=== PATIENT | male | born 1960 | race Caucasian/White ===

== ENCOUNTER → 2020-10-01 13:32 | Outpatient (CLI) | payer MEDICAID, SELFPAY ==
[2020-10-01 13:10] VITALS: BMI 34.0
[2020-10-01 15:15] LABS: Absolute Neutrophil Count 4.2 X10^3/uL (2.0-7.7); Basophil# 0.03 X10^3/uL; Basophil% 0.4 % (0-1); Eosinophil# 0.22 X10^3/uL; Eosinophils% 2.8 % (0-5); Hematocrit 43.6 % (40-54); Hemoglobin 14.2 g/dL (13.0-16.5); Lymphocyte % 30.2 % (19-41); Mean Corp Hgb Conc 32.6 g/dL (32-36); Mean Corpuscular Hgb 28.2 pg (27.0-32.0); Mean Corpuscular Volume 86.7 fL (80-94); Mean Platelet Vol. 10.8 fl (6.2-12.0); Monocyte# 1.07 X10^3/uL; Monocyte% 13.5 % (0-10); NRBC Flagged by Analyzer 0 % (0-5); Neutrophil # 4.18 X10^3/uL (2.7-7.7); Neutrophil % 52.6 % (47-70); Platelet Count 258 K/mm3 (150-450); RBC Distribution Width CV 14.6 % (11.6-14.6); RBC Distribution Width SD 46.5 fl (35.1-43.9); Red Blood Count 5.03 M/mm3 (4.6-6.2); White Blood Count 7.9 K/mm3 (4.4-11.0)
[2020-10-01 15:35] LABS: Vitamin D,25 Hydroxy 23.8 ng/mL
[2020-10-01 15:43] LABS: ALB/GLOB Ratio 0.9 RATIO (0.9-2.4); AST(SGOT) 30 U/L (15-37); Alanine Aminotransfer ALT/SGPT 42 U/L (16-61); Albumin, Serum 3.8 g/dL (3.2-5.0); Alkaline Phosphatase 55 U/L (45-117); Anion Gap 7 (5-15); BUN 19 mg/dL (7-18); BUN/Creat Ratio 17.9 RATIO (10-20); Calcium,Total 9.4 mg/dL (8.5-10.1); Chloride 105 mmol/L (98-107); Cholesterol 209 mg/dL (200); Creatinine, Serum 1.06 mg/dL (0.70-1.30); EST Glomerular Filtration Rate 76 mL/min (>60); Est Glom Filt Rate - Afr Amer 92 mL/min (>60); Globulin 4.1 g/dL (2.2-4.2); Glucose 101 mg/dL (74-106); High Density Lipoprotein 38 mg/dL; Potassium 3.9 mmol/L (3.5-5.1); Protein, Total 7.9 g/dL (6.4-8.2); Sodium Level 137 mmol/L (136-145); Thyroid Stim Hormone (TSH) 1.21 uIU/mL (0.358-3.74); Triglycerides 171 mg/dL; Very Low Density Lipoprotein 34 mg/dL (5-40)
== END ==
PROVIDERS: PCP Nurse Practitioner Family; Referring Provider Nurse Practitioner Family; Visit Provider Nurse Practitioner Family
DX: Z00.00 Encounter for general adult medical examination without abnormal findings (principal); I10 Essential (primary) hypertension; E56.9 Vitamin deficiency, unspecified; Z12.5 Encounter for screening for malignant neoplasm of prostate
CPT/HCPCS: 36415; 80053; 80061; 82306; 84153; 84443; 85025; G0103

== ENCOUNTER → 2020-11-10 09:18 | Outpatient (CLI) | payer MEDICAID, SELFPAY ==
[2020-10-28 13:24] VITALS: BMI 34.0
[2020-11-10 12:17] LABS: Anion Gap 5 (5-15); BUN 9 mg/dL (7-18); BUN/Creat Ratio 11.1 RATIO (10-20); Calcium,Total 9.3 mg/dL (8.5-10.1); Chloride 109 mmol/L (98-107); Creatinine, Serum 0.81 mg/dL (0.70-1.30); EST Glomerular Filtration Rate 104 mL/min (>60); Est Glom Filt Rate - Afr Amer 125 mL/min (>60); Glucose 108 mg/dL (74-106); Potassium 4.7 mmol/L (3.5-5.1); Sodium Level 138 mmol/L (136-145)
== END ==
PROVIDERS: PCP Nurse Practitioner Family; Referring Provider Nurse Practitioner Family; Visit Provider Nurse Practitioner Family
DX: I10 Essential (primary) hypertension (principal)
CPT/HCPCS: 36415; 80048

== ENCOUNTER 2020-12-09 06:16 | Day surgery (SDC) | payer MEDICAID, SELFPAY ==
[2020-12-09] MEDS: Lactated Ringers 1,000 ML 100 ML IV (06:50)
[2020-12-09 07:04] VITALS: BP 135/88; PULSE 58; RESP 16; TEMP 36.3; O2SAT 95; BMI 32.1
--- NOTE | 2020-12-09 07:17 | HP.PCM_ITS ---
HPI - General HPI Narrative JENNIFER BUSTAMANTE, is a 60 M who presents for screening colonoscopy. Patient has never had a colonoscopy in the past. He does have a family history of colon cancer in his mother at age 57. Patient reports no abdominal pain or blood in his stool. [facility] Medical History (Updated 12/09/20 @ 07:[address] Yinka Morejon MD) Back pain Bone fracture Chronic low back pain Encounter for preventative adult health care examination Frequent headaches Hammer toe of right foot History of drug abuse History of echocardiogram Hypertension Marijuana use Meningitis spinal Smoker Vitamin deficiency Wears glasses Home Medications cholecalciferol (vitamin D3) 50 mcg (2,000 unit) capsule 50 mcg PO DAILY #90 cap 10/28/20 [Rx Last Taken Unknown] gabapentin 100 mg capsule 100 mg PO QHS #90 cap 10/28/20 [Rx Last Taken Unknown] amlodipine 10 mg PO QHS 12/05/20 [History Last Taken Unknown] lisinopril 10 mg PO QHS 12/05/20 [History Last Taken Unknown] Allergy/AdvReac Type Severity Reaction Status Date / Time No Known Allergies Allergy Unverified 12/09/20 06:47 Family History Mother Depression Colon cancer Grandfather Myocardial infarction Surgical History (Updated 12/05/20 @ 09:00 by Ana Mcclure) History of back surgery History of cardiac catheterization Social History Smoking Status: Current every day smoker tobacco type: cigarettes alcohol intake: never substance use type: former substance user and painkillers what type of physical activity do you participate in: other details: active lifestyle Past Medical/Surgical History Planned Operation Planned Operative Procedure/s: COLONOSCOPY Previous Hospitalizations/Surgeries HX Hospitalizations: No Any Problems With Anesthesia: No You/Your Family Experience Fever (Hyperthermia) With Anes: No Cholinesterase deficiency: No Cardiovascular Hx Hypertension: Yes Respiratory Hx Sleep Apnea: No Hx Respiratory Tract Infection/Cold (presently): No Do You Snore Loudly (louder than talking or can be heard): No Do You Often Feel Tired/ Fatigued/ Sleepy Dring Daytime?: No Has Anyone Observed You Stop Breathing During Sleep?: No Result (for STOP score): Negative Smoking Status: Current every day smoker Neurological Does patient have nerve stimulator: No Miscellaneous Recent Exposure to Contagious Disease: No Allergies No Known Allergies Allergy (Unverified 12/09/20 06:47) Discharge Is Pt Admitted From a Jail, or a Custodial: No Who Could Help: UNCLE After D/C, Where Do you Plan to Go: Return Home Vital Signs Vital Signs Vital Signs: 12/09/20 07:04 Temperature 97.3 F L Temperature Source Temporal Pulse Rate 58 L Respiratory Rate 16 Respiratory Pattern Normal Blood Pressure 135/88 H Blood Pressure Mean 103 Blood Pressure Source Monitor Blood Pressure Position Semi-Fowlers Blood Pressure Location Right Arm Pulse Ox 95 Oxygen Delivery Method Room Air Weight Weight: 229 lb 15.074 oz Body Mass Index (BMI) 32.1 Physical Exam Const alert and oriented x3 Resp normal respiratory effort and normal air movement Cardio regular rate and regular rhythm GI soft to palpation, non-tender and non-distended Assessment & Plan Assessment/Plan (1) Screen for colon cancer: PLAN: I explained endoscopy in detail to the patient. I explained the risks including but not limited to stroke or heart attack with anesthesia, perforation of the GI tract, bleeding, infection. I explained that any of these could necessitate further emergency surgery. The patient understands and all questions were answered sufficiently. The patient wishes to proceed with procedure. Patient does have family history of colon cancer in his mother at a young age I would recommend the patient has screening colonoscopies every 5 years at minimum. Yinka Morejon MD Pager: [facility] [address] [place] [address] [address] [place] [address] Office: Surgery Risks - Colonoscopy Risks Include but are not Limited To: Risks include but are not limited to: Bleeding, perforation requiring further surgery, inability to complete colonoscopy requiring barium enema.
--- NOTE | 2020-12-09 07:30 | COLBX_PTH ---
PATIENT: JENNIFER BUSTAMANTE LOC: EN U#:[id number] AGE/SX: 60/M ROOM: RE12/09/[address]: Dr. Yinka Morejon MD : 1960 BED: DIS: 12/09/2020 SPEC #: [id number] RECD: 12/09/20 13:52 STATUS: VISHAL LUPE #: [id number] MERCEDES: 12/09/20 07:[address]: Yinka Morejon DEPT: SURGICAL PATHOLOGY RECD BY: Jovanna Pelletier ENTERED: 12/09/20 14:02 SP TYPE: COLON BX OTHR DR: Erich Concepcion, FEED RESEARCH TECHNICIAN-C Tissues: A - Sigmoid colon biopsy B - Sigmoid colon biopsy C - Descending colon D - Rectum, NOS Procedures: Surgery Specimen Level IV HEADER OPERATION: Colonoscopy, open access (MAC) PRE-OP DIAGNOSIS: Screen for colon cancer TISSUE SUBMITTED: A. Sigmoid colon polyp, B. Sigmoid @20cm biopsy, C. Descending polyp, D. Rectal polyp MICROSCOPIC DIAGNOSIS A. Sigmoid colon polyp, biopsy: Hyperplastic polyp. B. Sigmoid colon polyp at 20cms, biopsy: Benign mucosal polyp with recent hemorrhage. C. Descending colon polyp, biopsy: Tubular adenoma. D. Rectal polyp, biopsy: Tubular adenoma. MICROSCOPIC DESCRIPTION Slides are reviewed. GROSS DESCRIPTION A. Received is one container labeled with the patient name and designated sigmoid colon polyp . The specimen consists of one irregular fragment of light aparciio soft tissue that measures 0.2 x 0.1x 0.1cm. The specimen is totally submitted in one cassette. B. Received is one container labeled with the patient name and designated sigmoid @20cm biopsy?. The specimen consists of two irregular fragments of light aparicio soft tissue that measure 0.5 x 0.5 x 0.1cm together. The specimen is totally submitted in one cassette C. Received is one container labeled with the patient name and designated . descending polyp . The specimen consists of one irregular fragment of light aparicio soft tissue that measures 0.3 x 0.2 x0.1 cm. The specimen is totally submitted in one cassette D. Received is one container labeled with the patient name and designated rectal polyp . The specimen consists of one irregular fragment of light aparicio soft tissue that measures 0.7 x 0.6 x 0.5cm. The specimen is bisected and totally submitted in one cassette. /AM;am 12/09/20. TC:5 [facility]:[id number]
[2020-12-09 07:48] VITALS: BP 135/88; BP 95/71; PULSE 76; RESP 18; TEMP 36.8; O2SAT 96
--- NOTE | 2020-12-09 07:53 | OP.COLON_ITS ---
Patient Name: Brian Simms Procedure Date: 12/09/2020 7:03 AM Date of : 1960 Age: 60 Procedure: Colonoscopy Indications: Screening for colorectal malignant neoplasm Providers: Yinka Morejon MD Medicines: Monitored Anesthesia Care Patient Profile: This is a 60 year old male. Refer to note in patient chart for documentation of history and physical. Last Colonoscopy: none. The patient's first colonoscopy is today. Complications: No immediate complications. Estimated blood loss: Minimal. Procedure: Pre-Anesthesia Assessment: - Prior to the procedure, a History and Physical was performed, and patient medications and allergies were reviewed. The patient's tolerance of previous anesthesia was also reviewed. The risks and benefits of the procedure and the sedation options and risks were discussed with the patient. All questions were answered, and informed consent was obtained. Prior Anticoagulants: The patient has taken no previous anticoagulant or antiplatelet agents. After reviewing the risks and benefits, the patient was deemed in satisfactory condition to undergo the procedure. After I obtained informed consent, the scope was passed under direct vision. Throughout the procedure, the patient's blood pressure, pulse, and oxygen saturations were monitored continuously. The colonoscope was introduced through the anus and advanced to the cecum, identified by appendiceal orifice and ileocecal valve. The colonoscopy was performed without difficulty. The patient tolerated the procedure well. The quality of the bowel preparation was good. Scope In: 7:27:24 AM Scope Withdrawal Time 0 hours 7 minutes 18 seconds Scope Out: 7:45:33 AM Total Procedure Duration Time 0 hours 18 minutes 9 seconds Findings: Three polyps were found in the rectum, sigmoid colon and descending colon. These polyps were removed with a hot snare. Resection and retrieval were complete. A single (solitary) ulcer was found in the sigmoid colon. No bleeding was present. No stigmata of recent bleeding were seen. Biopsies were taken with a cold forceps for histology. Multiple small and large-mouthed diverticula were found in the sigmoid colon. Impression: - Three polyps in the rectum, in the sigmoid colon and in the descending colon, removed with a hot snare. Resected and retrieved. Recommendation: - Discharge patient to home. - Resume previous diet. - Continue present medications. - Await pathology results. - Repeat colonoscopy in 5 years for surveillance based on pathology results. Procedure Code(s): --- Professional --- 06819, Colonoscopy, flexible; with removal of tumor(s), polyp(s), or other lesion(s) by snare technique 70921, 61, Colonoscopy, flexible; with biopsy, single or multiple Diagnosis Code(s): --- Professional --- Z12.11, Encounter for screening for malignant neoplasm of colon K62.1, Rectal polyp D12.5, Benign neoplasm of sigmoid colon D12.4, Benign neoplasm of descending colon CPT copyright 2017 [employer]. All rights reserved. The codes documented in this report are preliminary and upon pest control service representative review may be revised to meet current compliance requirements. Yinka Morejon MD 12/09/2020 7:52:00 AM This report has been signed electronically. Number of Addenda: 0 Note Initiated On: 12/09/2020 7:03 AM
--- NOTE | 2020-12-09 07:53 | OP.CCLET_ITS ---
12/09/2020 Erich Concepcion NP [address] [place] [address] Re : Colonoscopy procedure for Brian Simms Dear Mr. Concepcion This procedure was performed on Wednesday, December 09, 2020. My impressions and recommendations are as follows: Impressions : - Three polyps in the rectum, in the sigmoid colon and in the descending colon, removed with a hot snare. Resected and retrieved. Recommendations : - Discharge patient to home. - Resume previous diet. - Continue present medications. - Await pathology results. - Repeat colonoscopy in 5 years for surveillance based on pathology results. My findings are described in the full procedure note, which is enclosed. If I can be of further assistance, please feel free to contact me at Doctor phone number(s): , Work: . Sincerely, Yinka Morejon MD 12/09/2020 7:52:00 AM This report has been signed electronically.
[2020-12-09 07:55] VITALS: BP 114/79; BP 135/88; PULSE 68; RESP 16; O2SAT 97
[2020-12-09 08:00] VITALS: BP 130/88; BP 135/88; PULSE 62; RESP 16; O2SAT 99
[2020-12-09 08:05] VITALS: BP 128/74; BP 135/88; PULSE 59; RESP 16; TEMP 36.1; O2SAT 99
[2020-12-09 08:17] VITALS: BP 135/88
== END 2020-12-09 08:29 | disposition home or self-care (01) ==
LOC: EN 06:19 → AC 06:19
PROVIDERS: PCP Nurse Practitioner Family; Referring Provider Nurse Practitioner Family; Visit Provider Surgery
PROC: 0DJD8ZZ Inspection of Lower Intestinal Tract, Via Natural or Artificial Opening Endoscopic (ICD-10-PCS; CPT 45378; principal; 2020-12-09 07:25)
DX: Z12.11 Encounter for screening for malignant neoplasm of colon (principal); D12.4 Benign neoplasm of descending colon; D12.8 Benign neoplasm of rectum; K63.3 Ulcer of intestine; K57.30 Diverticulosis of large intestine without perforation or abscess without bleeding; I10 Essential (primary) hypertension; F17.210 Nicotine dependence, cigarettes, uncomplicated; Z79.899 Other long term (current) drug therapy
CPT/HCPCS: 45380; 88305; J7120; J2405

== ENCOUNTER 2021-07-17 16:04 | Inpatient (IN) | payer MEDICAID, SELFPAY ==
[2021-07-17 16:04] VITALS: BP 153/109; PULSE 82; RESP 16; TEMP 36.6; O2SAT 97; BMI 30.8
--- NOTE | 2021-07-17 16:28 | CT_ITS ---
STUDY: CT CERVICAL SPINE WITHOUT CONTRAST REASON FOR EXAM: Male, 61 years old. head injury, neck pain RADIATION DOSAGE (If Supplied By Facility): CTDIvol = ( 23.04 ) mGy, DLP = ( 519.27 ) mGycm TECHNIQUE: High resolution transaxial imaging was performed without contrast material. Sagittal and coronal images were reconstructed. Individualized dose optimization techniques were used for this CT. COMPARISON: None FINDINGS: Normal craniovertebral junction. There are degenerative changes of the anterior atlantoaxial articulation. Normal odontoid process. Normal cervical lordosis. Normal vertebral bodies and posterior osseous elements. C2-3: Normal endplates. Normal disc height and morphology. Normal central canal and intervertebral neuroforamina. C3-4: Moderate left facet hypertrophy with ankylosis of facet joint produces mild left neural foraminal stenosis. No central spinal stenosis. C4-5: Moderate bilateral facet hypertrophy and right uncovertebral hypertrophy produces moderate neural foraminal stenosis. No central spinal stenosis. C5-6: Moderate left facet hypertrophy produces mild left neural foraminal stenosis. No central spinal stenosis. C6-7: Mild bilateral facet hypertrophy with mild bilateral neural foraminal stenosis. No central spinal stenosis. C7-T1: Normal endplates. Normal disc height and morphology. Normal central canal and intervertebral neuroforamina. Normal visualized soft tissue structures. CT/Spine Cervical without Contras IMPRESSION: No acute fracture or subluxation. Electronically Signed: Dominick Sanchez MD at 18:00 EDT ,
--- NOTE | 2021-07-17 16:28 | CT_ITS ---
STUDY: CT CHEST, ABDOMEN T PELVIS WITH CONTRAST REASON FOR EXAM: Male, 61 years old. fall, trauma RADIATION DOSAGE (If Supplied By Facility): CTDIvol = ( 22.33 ) mGy, DLP = ( 5177.75 ) mGycm TECHNIQUE: Transaxial imaging was performed following intravenous administration of IV 100mL Isovue-300. Individualized dose optimization techniques were used for this CT. COMPARISON: No relevant priors. FINDINGS: CHEST 8 mm bilobed noncalcified nodule in the left lower lung zone image 54. Correlation with PET CT scan is recommended. If PET negative, follow-up CT chest is recommended in 6 months to document stability. There is no demonstrated pleural abnormality. Normal heart and pericardium. Normal mediastinum. Normal hilar regions. Normal unenhanced pulmonary arteries. Normal aorta arch and descending thoracic aorta. Acute nondisplaced fracture of the medial aspect of the left 11th and 12th ribs. Acute nondisplaced fracture of the lateral left eighth rib. There is no demonstrated abnormality of the visualized upper abdomen. ABDOMEN The visualized lung bases are unremarkable. The visualized portions of the heart are within normal limits. Normal liver. Normal gallbladder and extrahepatic biliary system. Normal spleen. Normal pancreas. Normal bilateral adrenal glands. Normal right kidney. 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 Normal left kidney. Normal visualized stomach. Normal small intestine. There are multiple colonic diverticula consistent with diverticulosis. The appendix is visualized and appears normal. Normal abdominal aorta. Normal inferior vena cava. Normal retroperitoneum. Normal abdominal wall. Acute fractures of the left transverse process of L1, L2, L3, and L4. PELVIS Normal urinary bladder. Normal visualized small intestine. Normal visualized colon. There is no pelvic fluid. There is no pelvic lymphadenopathy or mass lesion. Normal visualized pelvic arteries. Normal abdominal wall. Normal osseous structures. CT/CT Chest, Abd, Pel w/Contrast IMPRESSION: 1. No acute traumatic aortic injury or solid organ injury. 2. Multiple left rib fractures but no pneumothorax or hemothorax. 3. Fractures of the left transverse process of L1, L2, L3, and L4. 4. Sigmoid diverticulosis without diverticulitis. 5. 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 Electronically Signed: Dominick Sanchez MD at 18:29 EDT ,
--- NOTE | 2021-07-17 16:28 | CT_ITS ---
STUDY: CT BRAIN WITHOUT CONTRAST REASON FOR EXAM: Male, 61 years old. head injury RADIATION DOSAGE (If Supplied By Facility): CTDIvol = ( 44.99 ) mGy, DLP = ( 866.41 ) mGycm TECHNIQUE: Transaxial CT imaging of the brain was performed without administration of intravenous contrast material. Individualized dose optimization techniques were used for this CT. COMPARISON: 12/29/2012 FINDINGS: Normal soft tissue structures. Normal calvarium. Normal size ventricles and extra-axial spaces for the patient''s age. Normal white matter tracts of the cerebral hemispheres. Normal basal ganglia and thalami. Normal brainstem. Normal cerebellum. There is no intracranial hemorrhage. There are no findings of an acute ischemic infarction. Normal visualized paranasal sinuses. CT/Brain/Head without Contrast IMPRESSION: Normal unenhanced CT scan of the brain. Electronically Signed: Dominick Sanchez MD at 18:19 EDT ,
--- NOTE | 2021-07-17 16:28 | CT_ITS ---
STUDY: CT LUMBAR SPINE WITHOUT CONTRAST REASON FOR EXAM: Male, 61 years old. fall, trauma RADIATION DOSAGE (If Supplied By Facility): CTDIvol = ( 43.02 ) mGy, DLP = ( 1400.74 ) mGycm TECHNIQUE: The patient was scanned in a multi detector CT scanner. High resolution transaxial imaging was performed. Images were obtained from T12 to S1. Sagittal and coronal images were reconstructed. Individualized dose optimization techniques were used for this CT. COMPARISON: None FINDINGS: Normal lumbar lordosis. There is no substantial scoliosis. Acute fractures of left transverse process of L1, L2, L3, and L4. L1-2: Normal endplates. Normal disc height and morphology. Normal bilateral facet joints. Normal central canal and bilateral lateral recesses. Normal bilateral intervertebral neural foramina. L2-3: Normal endplates. Normal disc height and morphology. Normal bilateral facet joints. Normal central canal and bilateral lateral recesses. Normal bilateral intervertebral neural foramina. L3-4: Mild bilateral facet hypertrophy and ligament flavum hypertrophy. Mild broad disc protrusion produces mild spinal stenosis and mild bilateral neural foraminal stenosis. L4-5: Moderate bilateral facet hypertrophy and ligamentum flavum hypertrophy. Mild broad disc protrusion produces mild spinal stenosis and mild bilateral neural foraminal stenosis. L5-S1: Severe bilateral facet hypertrophy and moderate ligament flavum hypertrophy. 2 mm retrolisthesis of L5 on S1 with a mild broad disc protrusion with vacuum disc formation produces moderate spinal stenosis and moderate bilateral neural foraminal stenosis. Normal visualized paraspinous soft tissue structures. CT/Spine Lumbar without Contrast IMPRESSION: Acute fractures of the left transverse process of L1, L2, L3, and L4. Electronically Signed: Dominick Sanchez MD at 18:17 EDT ,
--- NOTE | 2021-07-17 16:28 | CT_ITS ---
STUDY: CT THORACIC SPINE WITHOUT CONTRAST REASON FOR EXAM: Male, 61 years old. fall injury RADIATION DOSAGE (If Supplied By Facility): CTDIvol = ( 28.86 ) mGy, DLP = ( 1177.48 ) mGycm TECHNIQUE: The patient was scanned in a multi detector CT scanner. High resolution imaging was performed. Images were obtained from C7 to L1. Sagittal and coronal images were reconstructed. Individualized dose optimization techniques were used for this CT. COMPARISON: None. FINDINGS: Normal visualized cervical spine. Normal kyphosis of the thoracic spine. There is no substantial scoliosis. Normal thoracic vertebrae and endplates. Normal disc spaces heights. The soft tissue structures are unremarkable. CT/Spine Thoracic without Contras IMPRESSION: Normal unenhanced CT examination of the thoracic spine. Electronically Signed: Dominick Sanchez MD at 18:04 EDT ,
--- NOTE | 2021-07-17 16:29 | EKG12_ITS ---
Test Reason : Blood Pressure : / mmHG Vent. Rate : 075 BPM Atrial Rate : 075 BPM P-R Int : 202 ms QRS Dur : 086 ms QT Int : 350 ms P-R-T Axes : 053 018 024 degrees QTc Int : 390 ms Normal sinus rhythm Normal ECG Confirmed by BENNIE FINLEY, GENESIS ([id number]), advertising editor MILLER NAVA ([id number]) on 07/20/2021 1:57:31 PM Referred By: ANDREAS Confirmed By:NAIDA AVERY MD
--- NOTE | 2021-07-17 16:33 | EDS_ITS ---
HPI HPI - Fall History of Present Illness Chief Complaint: Fall Informant: patient Narrative Narrative: Patient presents by private vehicle after a fall off a 12 foot ladder. He works as a contractor. 2 hours ago, and off a ladder when the wind blew the ladder falling directly on his back hitting his head. He did not lose consciousness. He is not taking anticoagulation medicines. He is able to get himself here. Has significant upper back left-sided chest pain. He states he sustained a transverse fracture cervical spine 3 to 5 years ago with no surgical intervention. He takes blood pressure medications. Denies nausea or vomiting. Denies any extremity pains. There is just mild paresthesia ulnar aspect of the right hand. There is no weakness. Prior similar symptoms: No PFSH PFSH Medical History Back pain Bone fracture Chronic low back pain Chronic thoracic back pain Encounter for preventative adult health care examination Frequent headaches Hammer toe of right foot History of drug abuse History of echocardiogram Hypertension Marijuana use Meningitis spinal Right knee pain Smoker Tobacco abuse Vitamin deficiency Wears glasses Home Medications amlodipine 10 mg PO QHS 07/17/21 [History Last Taken 07/16/21] cholecalciferol (vitamin D3) 50 mcg PO DAILY 07/17/21 [History Last Taken 07/16/21] gabapentin 100 mg PO BID 07/17/21 [History Last Taken 07/16/21] lisinopril 20 mg PO QHS 07/17/21 [History Last Taken 07/16/21] Allergy/AdvReac Type Severity Reaction Status Date / Time No Known Allergies Allergy Verified 07/17/21 16:06 Family History Mother Depression Colon cancer Grandfather Myocardial infarction Surgical History History of back surgery History of cardiac catheterization Social History Smoking Status: Current every day smoker tobacco type: cigarettes alcohol intake: never substance use type: former substance user and painkillers what type of physical activity do you participate in: other details: active lifestyle ROS ROS ED Constitutional Constitutional ED: Denies chills, fever(s) or sweats Eyes Eyes: Denies change in vision ENT ENT ED: Denies dysphagia or sore throat Cardiovascular Cardiovascular: Reports chest pain; Denies leg edema, palpitations or racing heartbeat Respiratory/Chest Respiratory/Chest: Denies cough, dyspnea or dyspnea on exertion Gastrointestinal Gastrointestinal: Denies abdominal pain, diarrhea, nausea or vomiting Genitourinary Genitourinary ED: Denies dysuria, hematuria or urinary frequency Musculoskeletal Musculoskeletal: Reports back pain; Denies extremity pain Integumentary Denies rash or wounds Neurologic Neurologic: Denies headache(s), paresthesias or weakness EXAM Physical Exam Const Vital Signs: 07/17/21 16:04 07/17/21 17:34 Temperature 97.8 F Temperature Source Temporal Pulse Rate 82 Respiratory Rate 16 18 Blood Pressure 153/109 H Blood Pressure Mean 123 Pulse Ox 97 98 Oxygen Delivery Method Room Air Room Air Positive well nourished and well developed Constitutional Narrative: Uncomfortable laying on his right side. GCS 15. General Appearance ED: well developed HEENT Reports normocephalic and moist mucous membranes HEENT Narrative: No hemotympanum. No scalp hematomas or lacerations. normocephalic and atraumatic Eyes PERRL, EOMs intact bilaterally and conjunctivae normal General Eye ED: Yes normal appearance of both eyes Neck no lymphadenopathy and supple Neck Narrative: No midline tenderness or step-offs, mild paracervical tenderness. General: tenderness Chest Wall Chest Narrative: Tender palpation left side chest wall no crepitus. No ecchymosis. Chest: Negative for tenderness Resp normal respiratory effort and normal air movement Resp Narrative: Symmetric breath sounds bilaterally. Effort and Inspection: symmetric chest movement; Negative for respiratory distress Cardio regular rate, regular rhythm and no murmurs Peripheral Pulses: pulses 2+ throughout GI normal to inspection, nondistended, normoactive bowel sounds and non-tender Palpation: Negative for guarding or rebound tenderness present Back/Spine no thoracic nor lumbar tenderness Back/Spine Narrative: Significant tenderness mid Thoracics down his lumbar spine however primary to give tenderness with that mid thoracic region. No ecchymosis of the back. Extremity normal to inspection Extremity Narrative: Full range of motion x4 extremities negative logroll bilaterally. General Extremety ED: Negative for edema or tenderness General Extremity: Negative for edema Neuro oriented x3, CN's II-XII intact bilaterally and no sensory deficits noted Sensorium / Orientation: awake and alert Skin no rashes or lesions noted and no wounds Skin Narrative: No abrasions or lacerations. MDM MDM MDM Narrative Medical decision making narrative: Patient fall off a 12 foot ladder significant tenderness mid thoracic region however pain down his lumbar spine. Tenderness left chest wall. With no crepitus. Trauma scans head neck chest abdomen pelvis with thoracic and lumbar scans ordered. EKG sinus rhythm. Fentanyl for pain control. Trauma scans head neck thoracic spine lumbar spine chest abdomen pelvis are obtained. Results positive for nondisplaced rib fractures on the left of 8, 11 and 12. No pneumohemothorax. There is transverse fractures of L1 and L4 on the left. Reevaluation continued pain additional fentanyl was ordered. There is no intrathoracic or intra-abdominal injuries. His white cells with 19.2. Likely reactive. No lung infections he denies any urine symptoms. I did discuss with neurosurgeon Dr. Shelley, states nonoperative treatment with pain control. He states a brace may or may not benefit. Activities as tolerated. However due to pain control he will be admitted to to the hospital. He can follow-up with neurosurgery as an outpatient. I spoke with hospitalist Dr. Brantley for admission. Lab Data Labs: Laboratory Results - last 24 hr 07/17/21 07/17/21 07/17/21 16:50 16:50 16:50 WBC 19.2 H RBC 4.72 Hgb 13.8 Hct 41.3 MCV 87.5 MCH 29.2 MCHC 33.4 RDW Std Deviation 45.2 H RDW Coeff of Ervin 14.2 Plt Count 245 MPV 10.5 Immature Gran % (Auto) 1.000 H Neut % (Auto) 79.2 H Lymph % (Auto) 8.4 L [place] % (Auto) 10.9 H Eos % (Auto) 0.3 Baso % (Auto) 0.2 Absolute Neuts (auto) 15.2 H Absolute Lymphs (auto) 1.61 Nucleated RBC % 0 Differential Comment Diff Path Review May foll Platelet Estimate ADEQUATE RBC Morphology NORM C+C PT 13.5 INR 1.1 APTT 23.9 L Sodium 136 Potassium 4.7 Chloride 108 H Carbon Dioxide 26.0 Anion Gap 2 L BUN 14 Creatinine 1.02 Estim Creat Clear Calc 80.51 Est GFR (MDRD) Af Amer 96 Est GFR (MDRD) Non-Af 79 BUN/Creatinine Ratio 13.7 Glucose 154 H Calcium 9.1 Radiography Diagnostic Testing: Clinical Impression(s) from Imaging Studies Brain CT 07/17/21 16:28 IMPRESSION: Normal unenhanced CT scan of the brain. Electronically Signed: Dominick Sanchez MD at 18:19 EDT Reading Location ID and State: [place] / [employer] , Service support , Cervical Spine CT 07/17/21 16:28 IMPRESSION: No acute fracture or subluxation. Electronically Signed: Dominick Sanchez MD at 18:00 EDT Reading Location ID and State: [place] / [employer] , Service support , Chest/Abdomen/Pelvis CT 07/17/21 16:28 IMPRESSION: 1. No acute traumatic aortic injury or solid organ injury. 2. Multiple left rib fractures but no pneumothorax or hemothorax. 3. Fractures of the left transverse process of L1, L2, L3, and L4. 4. Sigmoid diverticulosis without diverticulitis. 5. 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 Electronically Signed: Dominick Sanchez MD at 18:29 EDT Reading Location ID and State: [place] / [employer] , Service support , Lumbar Spine CT 07/17/21 16:28 IMPRESSION: Acute fractures of the left transverse process of L1, L2, L3, and L4. Electronically Signed: Dominick Sanchez MD at 18:17 EDT Reading Location ID and State: [place] [facility] / [employer] , Service support , Thoracic Spine CT 07/17/21 16:28 IMPRESSION: Normal unenhanced CT examination of the thoracic spine. Electronically Signed: Dominick Sanchez MD at 18:04 EDT Reading Location ID and State: [place] / [employer] , Service support , EKG Initial EKG: Attestation: I personally reviewed and interpreted this EKG as follows: Comments: Sinus rate of 75, no ST changes, T wave inversion in leads III, nonspecific. Critical Care Time Critical Care Time: Yes Critical care time (excluding procedures): 30-74 minutes, Discussing w/Patient &/or Family/[employer], Discussing w/Consultants, Arranging Admission or Transfer, Performing Direct Patient Care at Bedside and - (40 minutes) Discharge Plan Dx/Rx/DC Orders Clinical Impression: Fall from ladder, Multiple rib fractures, Multiple transverse process fractures, Trauma Disposition Disposition: Acute Care Hospital [facility] Discharge Date/Time: 07/17/21 20:25
[2021-07-17] MEDS: fentaNYL 100 MCG/2 ML Ampul IV (16:48)
[2021-07-17] MEDS: Ondansetron 4 MG/2 ML Vial IV (16:48)
[2021-07-17 17:07] LABS: Absolute Lymphocyte Count 1.61 X10^3/uL (0.83-4.51); Absolute Neutrophil Count 15.2 X10^3/uL (2.0-7.7); Basophil# 0.04 X10^3/uL; Basophil% 0.2 % (0-1); Eosinophil# 0.06 X10^3/uL; Eosinophils% 0.3 % (0-5); Hematocrit 41.3 % (40-54); Hemoglobin 13.8 g/dL (13.0-16.5); Lymphocyte # 1.61 X10^3/ul (0.83-4.51); Lymphocyte % 8.4 % (19-41); Mean Corp Hgb Conc 33.4 g/dL (32-36); Mean Corpuscular Hgb 29.2 pg (27.0-32.0); Mean Corpuscular Volume 87.5 fL (80-94); Mean Platelet Vol. 10.5 fl (6.2-12.0); Monocyte# 2.09 X10^3/uL; Monocyte% 10.9 % (0-10); NRBC Flagged by Analyzer 0 % (0-5); Neutrophil % 79.2 % (47-70); POSITIVE DIFFERENTIAL YES; Platelet Count 245 K/mm3 (150-450); RBC Distribution Width CV 14.2 % (11.6-14.6); RBC Distribution Width SD 45.2 fl (35.1-43.9); Red Blood Count 4.72 M/mm3 (4.6-6.2); White Blood Count 19.2 K/mm3 (4.4-11.0)
[2021-07-17 17:17] LABS: International Normalized Ratio 1.1; Prothrombin Time (Protime)PT. 13.5 SECONDS (11.7-14.9)
[2021-07-17 17:18] LABS: Partial Thromboplast Time 23.9 Seconds (24.1-36.2)
[2021-07-17 17:22] LABS: Differential Indicated SCAN CRITERIA MET
[2021-07-17 17:25] LABS: Anion Gap 2 (5-15); BUN 14 mg/dL (7-18); BUN/Creat Ratio 13.7 RATIO (10-20); Calcium,Total 9.1 mg/dL (8.5-10.1); Chloride 108 mmol/L (98-107); Creatinine, Serum 1.02 mg/dL (0.70-1.30); EST Glomerular Filtration Rate 79 mL/min (>60); Est Glom Filt Rate - Afr Amer 96 mL/min (>60); Estimated Creatinine Clearance 80.51 ml/min; Glucose 154 mg/dL (74-106); Potassium 4.7 mmol/L (3.5-5.1); Sodium Level 136 mmol/L (136-145)
[2021-07-17 17:34] VITALS: RESP 18; O2SAT 98
[2021-07-17 17:49] LABS: Platelet Estimate ADEQUATE (ADEQ); Red Cell Morphology NORM C+C NORMAL (NORM C&C)
--- NOTE | 2021-07-17 19:10 | PCM.HP.STD ---
HPI - General General Date of Admission: 07/17/21 HPI Narrative JENNIFER BUSTAMANTE, is a 61 M who presents to the hospital after falling off of his roof. He was doing some roof repair and he went to step onto the ladder which gave out from under him when he fell to the ground. He did not lose consciousness but he started complaining of back pain and chest pain. In the ER he was found to have fractures in his eighth, 11th, 12th left ribs as well as transverse process fractures of L1, L2, L3, L4 on the left. Was also noted that he had an 8 mm bilobed noncalcified nodule in his left lower lung and PET scan was recommended. He denies any numbness or tingling in his lower extremities, he does have pain on his left side with deep breathing and has midline spine pain but no loss of bowel or bladder function. [facility] Medical History Back pain Bone fracture Chronic low back pain Chronic thoracic back pain Encounter for preventative adult health care examination Frequent headaches Hammer toe of right foot History of drug abuse History of echocardiogram Hypertension Marijuana use Meningitis spinal Right knee pain Smoker Tobacco abuse Vitamin deficiency Wears glasses Home Medications amlodipine 10 mg PO QHS 07/17/21 [History Last Taken 07/16/21] cholecalciferol (vitamin D3) 50 mcg PO DAILY 07/17/21 [History Last Taken 07/16/21] gabapentin 100 mg PO BID 07/17/21 [History Last Taken 07/16/21] lisinopril 20 mg PO QHS 07/17/21 [History Last Taken 07/16/21] Allergy/AdvReac Type Severity Reaction Status Date / Time No Known Allergies Allergy Verified 07/17/21 16:06 Family History Mother Depression Colon cancer Grandfather Myocardial infarction Surgical History History of back surgery History of cardiac catheterization Social History Smoking Status: Current every day smoker tobacco type: cigarettes alcohol intake: never substance use type: former substance user and painkillers what type of physical activity do you participate in: other details: active lifestyle ROS Constitutional Constitutional: Denies chills, fatigue, fever(s) or malaise Eyes Eyes: Denies blurry vision ENT HEENT: Denies headache(s) or nasal discharge Cardiovascular Cardiovascular: Reports chest pain; Denies dyspnea on exertion or syncope Respiratory/Chest Respiratory/Chest: Denies cough, shortness of breath at rest or shortness of breath with exertion Gastrointestinal Gastrointestinal: Denies constipation, diarrhea, nausea or vomiting Genitourinary Genitourinary: Denies dysuria Musculoskeletal Musculoskeletal: Reports back pain Neurologic Neurologic: Denies focal weakness, numbness or tremor(s) Psychiatric Psychiatric: Denies anxiety or depression Vital Signs Vital Signs Vital Signs: 07/17/21 16:04 07/17/21 17:34 Temperature 97.8 F Temperature Source Temporal Pulse Rate 82 Respiratory Rate 16 18 Blood Pressure 153/109 H Blood Pressure Mean 123 Pulse Ox 97 98 Oxygen Delivery Method Room Air Room Air Weight Weight: 215 lb Body Mass Index (BMI) 30.8 Physical Exam Const alert, oriented x3 and no apparent distress General Appearance: cooperative HEENT normocephalic and moist oral mucous membranes Eyes PERRL, EOMs intact bilaterally and conjunctivae normal Neck supple and no JVD Resp normal respiratory effort, no retractions, no use of accessory muscles and clear to auscultation bilaterally Auscultation: rhonchi; Negative for crackles, rales or wheezes Cardio regular rate, regular rhythm, S1 normal heart sound, S2 normal heart sound and no murmurs GI soft to palpation, non-tender and non-distended; Negative for hepatosplenomegaly Back/Spine Thoracic Spine / Upper Back: normal to inspection; Negative for thoracic spinal tenderness Lumbar Spine / Lower Back: normal to inspection and lumbar spinal tenderness L1, L2, L3 and L4 Extremity no clubbing, cyanosis or edema Skin no rashes or lesions noted Neuro moves all extremities, no focal motor deficits, no sensory deficits noted and deep tendon reflexes 2+ bilaterally Psych affect normal Appearance: appropriate Results Lab / Micro Data Result Diagrams: 07/17/21 16:50 07/17/21 16:50 Labs: Laboratory Results - last 24 hr 07/17/21 16:50: WBC 19.2 H, RBC 4.72, Hgb 13.8, Hct 41.3, MCV 87.5, MCH 29.2, MCHC 33.4, RDW Std Deviation 45.2 H, RDW Coeff of Ervin 14.2, Plt Count 245, MPV 10.5, Immature Gran % (Auto) 1.000 H, Neut % (Auto) 79.2 H, Lymph % (Auto) 8.4 L, [place] % (Auto) 10.9 H, Eos % (Auto) 0.3, Baso % (Auto) 0.2, Absolute Neuts (auto) 15.2 H, Absolute Lymphs (auto) 1.61, Nucleated RBC % 0, Differential Comment , Diff Path Review August, Platelet Estimate ADEQUATE, RBC Morphology NORM C+C 07/17/21 16:50: PT 13.5, INR 1.1, APTT 23.9 L 07/17/21 16:50: Sodium 136, Potassium 4.7, Chloride 108 H, Carbon Dioxide 26.0, Anion Gap 2 L, BUN 14, Creatinine 1.02, Estim Creat Clear Calc 80.51, Est GFR (MDRD) Af Amer 96, Est GFR (MDRD) Non-Af 79, BUN/Creatinine Ratio 13.7, Glucose 154 H, Calcium 9.1 Micro: Microbiology 07/17/21 16:50 Nasal Secretion SARS-CoV-2 Antigen (Rapid) - Final Radiology Impression Brain CT 07/17/21 16:28 IMPRESSION: Normal unenhanced CT scan of the brain. Electronically Signed: Dominick Sanchez MD at 18:19 EDT Reading Location ID and State: [id number] / [employer] , Service support , Cervical Spine CT 07/17/21 16:28 IMPRESSION: No acute fracture or subluxation. Electronically Signed: Dominick Sanchez MD at 18:00 EDT , Chest/Abdomen/Pelvis CT 07/17/21 16:28 IMPRESSION: 1. No acute traumatic aortic injury or solid organ injury. 2. Multiple left rib fractures but no pneumothorax or hemothorax. 3. Fractures of the left transverse process of L1, L2, L3, and L4. 4. Sigmoid diverticulosis without diverticulitis. 5. 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 Electronically Signed: Dominick Sanchez MD at 18:29 EDT Reading Location ID and State: [id number] / [employer] , Service support , Lumbar Spine CT 07/17/21 16:28 IMPRESSION: Acute fractures of the left transverse process of L1, L2, L3, and L4. Electronically Signed: Dominick Sanchez MD at 18:17 EDT Reading Location ID and State: [id number] / [employer] , Service support , Thoracic Spine CT 07/17/21 16:28 IMPRESSION: Normal unenhanced CT examination of the thoracic spine. Electronically Signed: Dominick Sanchez MD at 18:04 EDT Reading Location ID and State: [id number] / [employer] , Service support , Assessment & Plan Assessment/Plan (1) Fall from ladder: (2) Multiple rib fractures: (3) Multiple transverse process fractures: PLAN: 1. Multiple transverse process fractures and rib fractures on the left from a fall ? The neurosurgeon on-call was contacted and stated that there is nothing to do surgically other than pain management, he may benefit from a back brace ? Leukocytosis is likely due to stress from his multiple fractures and fall, remains afebrile ? He does have multiple rib fractures encourage incentive spirometry, did discuss with him the importance of deep breathing ? We will start him on oxycodone and morphine to try to get his pain under control ? No loss of consciousness, and imaging was normal other than the bony fractures for any internal traumatic issues ? She does have a 1 cm renal artery aneurysm that highly calcified, as well as an 8 mm bilobed nodule in his left lung which will need follow-up as an outpatient. 2. HTN ? Blood pressure is is stable ? Continue with his home blood pressure medications DVT: Ambulation Charges/Coding Visit Charges OBSV E&M: 06640 Initial observation care L2
[2021-07-17 19:13] VITALS: BP 134/77; PULSE 88; RESP 18; TEMP 37.1; O2SAT 99
[2021-07-17] MEDS: fentaNYL 100 MCG/2 ML Ampul 50 MCG IV (19:17)
[2021-07-17 20:30] VITALS: BMI 31.6
[2021-07-17 21:00] VITALS: BP 143/76; PULSE 64; RESP 18; TEMP 37; O2SAT 93
[2021-07-17] MEDS: Acetaminophen 325 MG Tablet 650 MG PO (23:38)
[2021-07-17] MEDS: oxyCODONE 5 MG Tablet PO (23:39)
[2021-07-17] MEDS: Gabapentin 100 MG Capsule PO (23:40)
[2021-07-17] MEDS: Lisinopril 20 MG Tablet PO (23:40)
[2021-07-17] MEDS: amLODIPine 10 MG Tablet PO (23:41)
[2021-07-18] VITALS (8 sets, daily range): BP systolic 115–147; BP diastolic 70–87; PULSE 61–69; RESP 18–20; TEMP 36.4–36.7; O2SAT 83–92
[2021-07-18 05:03] LABS: Absolute Lymphocyte Count 1.98 X10^3/uL (0.83-4.51); Absolute Neutrophil Count 6.6 X10^3/uL (2.0-7.7); Basophil# 0.02 X10^3/uL; Basophil% 0.2 % (0-1); Eosinophil# 0.08 X10^3/uL; Eosinophils% 0.8 % (0-5); Hematocrit 40.7 % (40-54); Hemoglobin 13.5 g/dL (13.0-16.5); Lymphocyte # 1.98 X10^3/ul (0.83-4.51); Lymphocyte % 19.3 % (19-41); Mean Corp Hgb Conc 33.2 g/dL (32-36); Mean Corpuscular Hgb 28.9 pg (27.0-32.0); Mean Corpuscular Volume 87.2 fL (80-94); Mean Platelet Vol. 10.3 fl (6.2-12.0); Monocyte# 1.49 X10^3/uL; Monocyte% 14.5 % (0-10); NRBC Flagged by Analyzer 0 % (0-5); Neutrophil # 6.64 X10^3/uL (2.7-7.7); Neutrophil % 64.8 % (47-70); Platelet Count 238 K/mm3 (150-450); RBC Distribution Width CV 14.3 % (11.6-14.6); RBC Distribution Width SD 44.8 fl (35.1-43.9); Red Blood Count 4.67 M/mm3 (4.6-6.2); White Blood Count 10.3 K/mm3 (4.4-11.0)
[2021-07-18 05:33] LABS: Anion Gap 5 (5-15); BUN 12 mg/dL (7-18); BUN/Creat Ratio 13.8 RATIO (10-20); Calcium,Total 8.6 mg/dL (8.5-10.1); Chloride 107 mmol/L (98-107); Creatinine, Serum 0.87 mg/dL (0.70-1.30); EST Glomerular Filtration Rate 95 mL/min (>60); Est Glom Filt Rate - Afr Amer 115 mL/min (>60); Glucose 135 mg/dL (74-106); Potassium 3.8 mmol/L (3.5-5.1); Sodium Level 137 mmol/L (136-145)
[2021-07-18] MEDS: Acetaminophen 325 MG Tablet 650 MG PO (05:48)
[2021-07-18] MEDS: oxyCODONE 5 MG Tablet PO (05:48)
--- NOTE | 2021-07-18 07:44 | CPS ---
Pt was instructed on SMI and encouraged to use every HR. Pt was shown how to splint due to weak cough caused by pain. Nurse was made aware.
--- NOTE | 2021-07-18 08:03 | RAD_ITS ---
STUDY: X-RAY - BILATERAL RIBS WITH CHEST REASON FOR EXAM: Male, 61 years old. Left rib fractures TECHNIQUE - RIBS: Total of 10 view(s) of the ribs. TECHNIQUE - CHEST: Single frontal view of the chest. COMPARISON: None. FINDINGS - RIBS : Fractures of the lateral aspect of the left fifth, seventh, eighth and possibly sixth ribs. No definite fractures of the right ribs are seen. FINDINGS - CHEST: Atelectatic changes in the right lung base. Elevation of the right hemidiaphragm. No evidence of pleural effusions or pneumothorax. There is borderline cardiomegaly. Normal mediastinum and мария. Normal visualized pulmonary arteries. There is atherosclerotic tortuosity of the aortic arch and descending thoracic aorta. Otherwise no demonstrated acute osseous changes. There is no demonstrated abnormality of the visualized soft tissue structures of the upper abdomen. RAD/Ribs Gerald Min 4V w/PA Chest IMPRESSION: RIBS: Fracture of the left fifth, seventh and eighth ribs. CHEST: Atelectatic changes in the right lung base. Electronically Signed: Migue Osborne MD at 10:32 EDT ,
[2021-07-18] MEDS: Gabapentin 100 MG Capsule PO ×2 (09:08→22:36)
[2021-07-18] MEDS: fentaNYL 25 MCG Patch TD (09:08)
[2021-07-18] MEDS: Cholecalciferol (VIT D3) 25 MCG TABLET (1,000 UNITS) 50 MCG PO (09:08)
--- NOTE | 2021-07-18 10:16 | CASEMGMT ---
Tertiary facilities in-network with patient's insurance: [facility], [facility], [facility], [facility] , [facility]
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
[2021-07-18] MEDS: Ketorolac 15 MG/ML Vial IV ×2 (11:17→17:25)
[2021-07-18] MEDS: oxyCODONE 5 MG Tablet 10 MG PO ×3 (11:17→22:35)
[2021-07-18] MEDS: 0.9% Saline Lock 10 ML Syringe IV ×2 (11:19→17:25)
[2021-07-18] MEDS: Acetaminophen 500 MG Tablet 1000 MG PO ×2 (14:23→22:35)
--- NOTE | 2021-07-18 15:26 | CPS ---
Pt's saturation was 83% on 4 lpm upon entering room. Pt was given SMI to do and saturation came up to 88%. Pt was increased to 6 lpm and pulse ox was 90%. Pt was encouraged to use SMI and cough while splinting his side. Pt stated he knows he needs to take deper breaths but states it Hurts. Pt was again explained the importance of using the SMI and making sure he is coughing to keep lungs clear. Spoke with Pt's nurse and he was also in the process of sending a core text message to Dr Schafer.
--- NOTE | 2021-07-18 17:09 | CPS ---
At 5:03 a follow up conversation with nurse in regards to response from previous core text to Dr Schafer. Nurse stated that he did speak with the Dr and made him aware of the 6 lpm oxygen and he states that the Dr was ok with the increase in demand due to pt's pain medication needs.
[2021-07-18] MEDS: Lidocaine 5% Patch 2 PATCH TOPICAL (17:27)
[2021-07-18] MEDS: amLODIPine 10 MG Tablet PO (22:36)
[2021-07-18] MEDS: Lisinopril 20 MG Tablet PO (22:36)
--- NOTE | 2021-07-18 23:14 | PCM.PN.BLA ---
Progress Note Nurse reported patient who was not previously on oxygen is now requiring about 6L of nasal cannula oxygen and her saturation of about 91-92%. Nurse reports mild wheezes. Of note patient has multiple rib fractures. In the setting of wheezes and patient with a history of will start patient on steroids. Noted that steroids can delay wound healing. Placed on scheduled DuoNeb. Rapid Covid yesterday 07/17/2021 was negative. Will order PCR COVID.
[2021-07-19] VITALS (24 sets, daily range): BP systolic 123–137; BP diastolic 77–90; PULSE 67–99; RESP 12–26; TEMP 36–37.1; O2SAT 82–95
[2021-07-19] MEDS: 0.9% Saline Lock 10 ML Syringe IV ×3 (00:22→12:49)
[2021-07-19] MEDS: Ketorolac 15 MG/ML Vial IV ×3 (00:22→12:48)
[2021-07-19] MEDS: predniSONE 20 MG Tablet 40 MG PO (00:23)
[2021-07-19] MEDS: Ipratropium/Albuterol Sulfate 3 ML AMPUL.NEB INHALATION ×5 (00:46→19:41)
[2021-07-19] MEDS: Acetaminophen 500 MG Tablet 1000 MG PO ×3 (05:43→20:46)
--- NOTE | 2021-07-19 05:59 | NURSING ---
RT in room at this time. Aerosol treatment given by RT followed by placing patient on bipap. Pt placed on stepdown monitor for continuous pulseox.
--- NOTE | 2021-07-19 06:00 | RAD_ITS ---
STUDY: X-RAY CHEST REASON FOR EXAM: Male, 61 years old. SOB TECHNIQUE: AP portable COMPARISON: None. FINDINGS: There is elevation of the right hemidiaphragm. There is no demonstrated pleural abnormality. Normal size heart. Normal mediastinum and мария. Normal visualized pulmonary arteries. Normal visualized aortic arch and descending thoracic aorta. Normal visualized thoracic spine. Normal visualized ribs, clavicles, and shoulders. There is no demonstrated abnormality of the visualized soft tissue structures of the upper abdomen. RAD/Chest 1 View (Portable) IMPRESSION: Severe elevation of the right hemidiaphragm. Electronically Signed: Connor Koehler MD at 6:26 EDT ,
--- NOTE | 2021-07-19 06:14 | PCM.PN.BLA ---
Progress Note Patient seen at the bedside. Patient on BiPAP with FiO2 of 100% and oxygen saturation of around 88 to 90%. Complains of pain at left rib. Alert and oriented x3. S1-S2 present Tachypnea Diminished at right lower base. Abdomen bowel sounds present soft nontender nondistended escalation with edema. Extremity without edema. Acute hypoxemic respiratory failure Chest x-ray ordered returned with elevation of right diaphragm secondary to likely atelectasis. Prednisone discontinued as there is no role here. Patient is not wheezes. Per nurse and respiratory therapist at bedside patient has received some improvement with DuoNeb. Nurse and respiratory therapist thinks that patient was able to clear secretions with Duoneb. DuoNeb continued. Escalate pain medicine by adding Dilaudid added to pain regimen. Hopefully if patient's pain improves he can be taken off BiPAP for a trial of Acapella. Abnormal EKG. Nurse reports ST depression on telemetry. A follow-up twelve-lead EKG shows some ST depressions. Serial troponins ordered.
--- NOTE | 2021-07-19 06:18 | EKG12_ITS ---
Test Reason : SOB Blood Pressure : / mmHG Vent. Rate : 082 BPM Atrial Rate : 082 BPM P-R Int : 180 ms QRS Dur : 090 ms QT Int : 356 ms P-R-T Axes : 057 034 048 degrees QTc Int : 415 ms Normal sinus rhythm Normal ECG Confirmed by ADRIANA FINLEY, ROXANN ([id number]), newspaper copy editor MILLER NAVA ([id number]) on 07/20/2021 1:01:37 PM Referred By: DR CHILDERS Confirmed By:ROXANN WRIGHT MD
[2021-07-19 06:36] LABS: Allen Test Positive; Base Excess -1 mmol/L (-2 to +2); Blood Gas Specimen Type ART; Comment 14; FI02 100; O2 Delivery Device BiPAP; PO2 47 mmHG (75-100); SITE R Radial; SO2 82 % (95-99); Total Carbon Dioxide 25 mmol/L; pCO2 39.2 mmHg (35-45)
--- NOTE | 2021-07-19 07:01 | CT_ITS ---
ACR Level 3 findings have been noted. An addendum which confirms receipt of the report will follow. STUDY: CT CHEST WITH CONTRAST REASON FOR EXAM: Male, 61 years old. Elevated right hemidiaphragm post fall trauma RADIATION DOSAGE (If Supplied By Facility): CTDIvol = ( 17.97 ) mGy, DLP = ( 756.89 ) mGycm TECHNIQUE: Transaxial imaging was performed following intravenous administration of IV 100mL Isovue-300. Individualized dose optimization techniques were used for this CT. COMPARISON: 17 July 2021 FINDINGS: Right lung disease has worsened and progressed since 24 hours prior with development of dense right lower lobe consolidation and collapse and increased extent and density of the groundglass regional and nodular opacities. Right lower lobe bronchus is completely filled with secretions and not aerated. There is minor atelectasis in the left lung. There is partial loculation of mucus in the left bronchus. Left upper lobe contains a lobulated elongated 8 mm low risk nodule, presumed granuloma for which follow-up can be performed in a smoker. There is no pulmonary edema or pleural effusions. Aorta and pulmonary arteries are normal. Corneae arteries are diseased with calcified plaque. There are left lateral rib fractures #5, 7 and 8. Gallbladder contains a small stone. Left adrenal is thickened, refer to abdominal report. CT/Chest WITH Contrast IMPRESSION: 1. Progression of pneumonia to dense right lower lobe consolidation and mucoid obstruction of the right lower lobe bronchus. 2. Left rib fractures. 3. Left upper lobe low risk nodule, presumed granuloma. Follow-up in one year can be performed in a smoker and is optional in nonsmoker. 4. Advanced coronary artery disease. 5. Inconclusive left adrenal findings, refer to abdominal imaging. Electronically Signed: Hipolito Avalos MD at 9:04 EDT ,
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
[2021-07-19 07:14] LABS: Troponin-I HS 7 pg/mL (3.0-78.0)
[2021-07-19 09:01] LABS: Anion Gap 3 (5-15); BUN 13 mg/dL (7-18); BUN/Creat Ratio 14.1 RATIO (10-20); Calcium,Total 8.9 mg/dL (8.5-10.1); Chloride 105 mmol/L (98-107); Creatinine, Serum 0.92 mg/dL (0.70-1.30); EST Glomerular Filtration Rate 90 mL/min (>60); Est Glom Filt Rate - Afr Amer 108 mL/min (>60); Estimated Creatinine Clearance 89.27 ml/min; Glucose 191 mg/dL (74-106); Potassium 4.3 mmol/L (3.5-5.1); Sodium Level 135 mmol/L (136-145); Troponin-I HS 4 pg/mL (3.0-78.0)
[2021-07-19] MEDS: Cholecalciferol (VIT D3) 25 MCG TABLET (1,000 UNITS) 50 MCG PO (10:37)
[2021-07-19] MEDS: Gabapentin 100 MG Capsule PO ×2 (10:38→20:46)
[2021-07-19] MEDS: guaiFENesin 1,200 MG Tablet 1200 MG PO ×2 (10:38→20:46)
[2021-07-19] MEDS: Lidocaine 5% Patch 2 PATCH TOPICAL (10:55)
[2021-07-19 12:58] LABS: Troponin-I HS 3 pg/mL (3.0-78.0)
[2021-07-19] MEDS: oxyCODONE 5 MG Tablet 10 MG PO ×2 (14:04→20:48)
[2021-07-19] MEDS: amLODIPine 10 MG Tablet PO (20:46)
[2021-07-19] MEDS: Lisinopril 20 MG Tablet PO (20:47)
[2021-07-20] VITALS (17 sets, daily range): BP systolic 109–143; BP diastolic 74–80; PULSE 64–94; RESP 12–28; TEMP 35.6–36.9; O2SAT 2–97
[2021-07-20] MEDS: oxyCODONE 5 MG Tablet 10 MG PO ×3 (02:41→20:37)
[2021-07-20] MEDS: Acetaminophen 325 MG Tablet 650 MG PO (02:42)
[2021-07-20] MEDS: Acetaminophen 500 MG Tablet 1000 MG PO ×3 (05:07→22:51)
[2021-07-20 06:26] LABS: Absolute Lymphocyte Count 1.67 X10^3/uL (0.83-4.51); Absolute Neutrophil Count 9.9 X10^3/uL (2.0-7.7); Basophil# 0.02 X10^3/uL; Basophil% 0.2 % (0-1); Eosinophil# 0.06 X10^3/uL; Eosinophils% 0.5 % (0-5); Hematocrit 38.8 % (40-54); Hemoglobin 12.9 g/dL (13.0-16.5); Lymphocyte # 1.67 X10^3/ul (0.83-4.51); Lymphocyte % 12.9 % (19-41); Mean Corp Hgb Conc 33.2 g/dL (32-36); Mean Corpuscular Hgb 28.9 pg (27.0-32.0); Mean Platelet Vol. 10.6 fl (6.2-12.0); Monocyte# 1.25 X10^3/uL; Monocyte% 9.7 % (0-10); NRBC Flagged by Analyzer 0 % (0-5); Neutrophil # 9.89 X10^3/uL (2.7-7.7); Neutrophil % 76.3 % (47-70); Platelet Count 229 K/mm3 (150-450); RBC Distribution Width CV 14.3 % (11.6-14.6); RBC Distribution Width SD 45.7 fl (35.1-43.9); Red Blood Count 4.46 M/mm3 (4.6-6.2); White Blood Count 12.9 K/mm3 (4.4-11.0)
[2021-07-20] MEDS: Ipratropium/Albuterol Sulfate 3 ML AMPUL.NEB INHALATION ×4 (06:39→19:15)
[2021-07-20 06:52] LABS: ALB/GLOB Ratio 0.8 RATIO (0.9-2.4); AST(SGOT) 17 U/L (15-37); Alanine Aminotransfer ALT/SGPT 35 U/L (16-61); Albumin, Serum 3.1 g/dL (3.2-5.0); Alkaline Phosphatase 59 U/L (45-117); Anion Gap 6 (5-15); BUN 17 mg/dL (7-18); BUN/Creat Ratio 18.9 RATIO (10-20); Calcium,Total 8.6 mg/dL (8.5-10.1); Chloride 102 mmol/L (98-107); EST Glomerular Filtration Rate 92 mL/min (>60); Est Glom Filt Rate - Afr Amer 111 mL/min (>60); Estimated Creatinine Clearance 91.25 ml/min; Globulin 3.9 g/dL (2.2-4.2); Glucose 120 mg/dL (74-106); Potassium 4.2 mmol/L (3.5-5.1); Sodium Level 134 mmol/L (136-145)
[2021-07-20] MEDS: oxyCODONE 5 MG Tablet PO (08:49)
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
--- NOTE | 2021-07-20 10:17 | NURSING ---
Observed tick imbedded and swollen on pts back. Area reddened. Jarocho BRODERICK notified and shown tick. Pt stated that he has recently been out in the [facility].Jarocho BRODERICK to contact ER physician about removal of tick.
[2021-07-20] MEDS: Gabapentin 100 MG Capsule PO ×2 (10:43→22:51)
[2021-07-20] MEDS: Lidocaine 5% Patch 2 PATCH TOPICAL (10:43)
[2021-07-20] MEDS: guaiFENesin 1,200 MG Tablet 1200 MG PO ×2 (10:43→22:50)
[2021-07-20] MEDS: Cholecalciferol (VIT D3) 25 MCG TABLET (1,000 UNITS) 50 MCG PO (10:43)
[2021-07-20] MEDS: 0.9% Saline Lock 10 ML Syringe IV (10:50)
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
--- NOTE | 2021-07-20 11:58 | PCM.PN.HOSP ---
Documented by User: Jarocho BRODERICK 07/20/21 12:11 Subjective Subjective Patient is a 61-year-old male comfortably resting in bed, alert and orient x3. Patient denies development of any new symptoms overnight. Does not appear in acute distress. Objective Data Objective Data Vital Signs: Vital Signs Temp Pulse Resp BP Pulse Ox 98.4 F 80 18 143/79 H 93 07/20/21 10:35 07/20/21 10:35 07/20/21 10:35 07/20/21 10:35 07/20/21 10:35 Oxygen Flow Rate (L/min) 5 Oxygen Delivery Method Nasal Cannula Weight: 220 lb 3.869 oz Body Mass Index (BMI) 31.6 Intake & Output: Intake and Output for Last 24 Hours 07/18/21 07/19/21 07/20/21 23:59 23:59 23:59 Intake Total 1520 / 1520 1485 / 1485 750 / 750 Output Total 1350 / 1350 700 / 700 Balance 170 / 170 785 / 785 750 / 750 Lab / Micro Data Result Diagrams: 07/20/21 05:15 07/20/21 05:15 Labs: Laboratory Results - last 24 hr 07/19/21 12:32: Troponin I High Sens 3 07/20/21 05:15: WBC 12.9 H, RBC 4.46 L, Hgb 12.9 L, Hct 38.8 L, MCV 87.0, MCH 28.9, MCHC 33.2, RDW Std Deviation 45.7 H, RDW Coeff of Ervin 14.3, Plt Count 229, MPV 10.6, Immature Gran % (Auto) 0.400, Neut % (Auto) 76.3 H, Lymph % (Auto) 12.9 L, Mobile % (Auto) 9.7, Eos % (Auto) 0.5, Baso % (Auto) 0.2, Absolute Neuts (auto) 9.9 H, Absolute Lymphs (auto) 1.67, Nucleated RBC % 0 07/20/21 05:15: Sodium 134 L, Potassium 4.2, Chloride 102, Carbon Dioxide 26.0, Anion Gap 6, BUN 17, Creatinine 0.90, Estim Creat Clear Calc 91.25, Est GFR (MDRD) Af Amer 111, Est GFR (MDRD) Non-Af 92, BUN/Creatinine Ratio 18.9, Glucose 120 H, Calcium 8.6, Total Bilirubin 1.00, AST 17, ALT 35, Alkaline Phosphatase 59, Total Protein 7.0, Albumin 3.1 L, Globulin 3.9, Albumin/Globulin Ratio 0.8 L Micro: Microbiology 07/19/21 14:00 Sputum, Expectorated/Coughed Gram Stain - Final 07/19/21 14:00 Sputum, Expectorated/Coughed Respiratory Culture - Preliminary Beta streptococcus 07/19/21 10:56 Urine, Clean Catch Legionella Antigen - Final 07/19/21 10:56 Urine, Clean Catch Streptococcus pneumoniae Antigen (M - Final 07/17/21 16:50 Nasal Secretion SARS-CoV-2 Antigen (Rapid) - Final Radiography Diagnostic Testing: Radiology Impression Lumbar Spine CT 07/17/21 16:28 IMPRESSION: Acute fractures of the left transverse process of L1, L2, L3, and L4. Electronically Signed: Dominick Sanchez MD at 18:17 EDT , Thoracic Spine X-Ray 07/20/21 08:51 IMPRESSION: 1. No suspicious acute fracture or malalignment of the thoracic spine. 2. Minimal anterior wedging of the superior endplates of T12 and L1 vertebral bodies are presumably from remote injury. 3. 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 Electronically Signed: Luke Mir MD at 10:41 EDT , Lumbar Spine X-Ray 07/20/21 09:05 IMPRESSION: 1. No suspicious acute fracture or malalignment of the lumbar spine. 2. Minimal anterior wedging of the superior endplates of T12 and L1 vertebral bodies are presumably from remote injury. Electronically Signed: Luke Mir MD at 10:39 EDT , Physical Exam Const alert, oriented x3 and no apparent distress HEENT head/scalp atraumatic and moist oral mucous membranes Head and Scalp: normocephalic Eyes PERRL, EOMs intact bilaterally and conjunctivae normal Neck no lymphadenopathy, supple and no JVD Resp normal respiratory effort, no retractions and no use of accessory muscles Cardio regular rate, regular rhythm and no JVD GI normal to inspection, nondistended, normoactive bowel sounds Extremity normal to inspection Skin Skin Narrative: Large tick embedded in the center of the back about the thoracic region. No erythema migrans noted. Neuro CN's II-XII intact bilaterally Psych affect normal Assessment & Plan Assessment/Plan (1) Multiple rib fractures: QUALIFIERS: Encounter type: initial encounter Fracture type: closed Laterality: left Qualified Code(s): S22.42XA - Multiple fractures of ribs, left side, initial encounter for closed fracture (2) Multiple transverse process fractures: (3) Chronic thoracic back pain: (4) Fall from ladder: QUALIFIERS: Encounter type: initial encounter Qualified Code(s): W11.XXXA - Fall on and from ladder, initial encounter (5) Trauma: (6) Concussion: QUALIFIERS: Encounter type: initial encounter Loss of consciousness presence/duration: without LOC Qualified Code(s): S06.0X0A - Concussion without loss of consciousness, initial encounter PLAN: Day 3 Discharge planning: Current plan is for patient to discharge home when medically ready. 1) multiple rib and transverse process fractures Patient was admitted after falling from a roof approximately 12 feet above ground. Extensive work-up and consult with orthopedics and trauma specialist already completed, no need for surgical intervention and no intra-abdominal/intrathoracic emergency noted. Awaiting orthopedic evaluation to clear patient for discharge home with outpatient follow-up. 2) acute hypoxic respiratory failure CT of the chest obtained and demonstrated worsening right lower lobe pneumonia with mucoid obstruction in the right lower left lobe bronchus. Currently satting 93% on 5 L via nasal cannula. Sputum culture preliminarily shows beta Streptococcus, awaiting sensitivities. Legionella and strep pneumo urine antigens negative, rapid Covid is negative. Viral PCR negative. Continue empiric Rocephin and azithromycin, await final culture and sensitivities. 3) concussion No encephalopathy myopathy noted on my evaluation. Brain CT obtained on admission did not demonstrate any intracranial trauma or hemorrhage. We will continue supportive management. 4) embedded tick Patient with large engorged tick about the thoracic region of the back. No arthralgias, headache or myalgias noted. No erythema migrans noted. Tick was removed with tweezers and affected area was cleaned and dressed. No need for doxycycline at this time. DVT prophylaxis - SCD's, chemoprophylaxis not indicated due to recent trauma. Patient seen by Jarocho Trejo PA-C, under the supervision of Dr. Murphy. Documented by User: Dr. Flip Murphy MD 07/20/21 14:37 Objective Data Lab / Micro Data Result Diagrams: 07/20/21 05:15 07/20/21 05:15 Assessment & Plan Addt'l Comments This patient was seen in conjunction with Jarocho Trejo PA-C. I have independently interviewed and examined the patient and reviewed pertinent historical, laboratory, and other data. Please refer to Jarocho Trejo PA-C's note for details of this patient's presentation, findings, and recommendations. I have reviewed Jarocho Trejo PA-C's note and concur with documented findings. In brief, patient is a 61-year-old gentleman who fell off a 11 foot ladder with subsequent pain to both shoulders back and hips. Patient did experience varus degree of injuries including multiple left rib fractures but no pneumothorax or hemothorax, fractures of the left transverse process of L1-L2-L3 and L4. Neurosurgery at the tertiary care center was apparently contacted recommendation is for conservative management and pain management at this point Physical Examination: GENERAL: cooperative HEENT: Atraumatic; EYES; Anicteric, Normal Conjunctiva NECK; supple, normal thyroid, RESPIRATORY: Diminished to auscultation CARDIOVASCULAR: Regular S1 S2, GI: soft, normoactive bowel sounds, : No Renal angle tenderness; EXTREMITIES: No edema, no clubbing, MUSCULOSKELETAL: no muscle wasting NEURO: Awake; no lateralizing signs. SKIN: No Rash PSYCH; Flat affect Assessment: 1. Fall with multiple left-sided rib fractures and transverse process fractures involving L1-L2-L3 and L4 2. Acute hypoxic respiratory failure 3. Essential hypertension 4. Class I obesity with BMI of 31.6 5. Embedded tick on upper trunk 6. DVT prophylaxis Recommendations: 1. I have discussed the results of my overview and impressions with the patient 2. Options for management were reviewed Total time spent by myself and the advanced practice practitioner evaluating patient, reviewing labs, subsequent management decisions, discussion with patient as well as other providers 40 minutes ( 25 of which was spent by myself) Charges/Coding Visit Charges Inpatient E&M: 85974 Subs Hosp L2
[2021-07-20 12:43] LABS: Pathologist Review Reviewed
[2021-07-20] MEDS: amLODIPine 10 MG Tablet PO (22:50)
[2021-07-20] MEDS: Lisinopril 20 MG Tablet PO (22:51)
[2021-07-21] VITALS (21 sets, daily range): BP systolic 121–151; BP diastolic 71–85; PULSE 63–93; RESP 12–20; TEMP 36.2–36.8; O2SAT 87–96
[2021-07-21] MEDS: oxyCODONE 5 MG Tablet 10 MG PO ×4 (02:25→20:00)
[2021-07-21] MEDS: Acetaminophen 500 MG Tablet 1000 MG PO ×3 (05:00→21:13)
[2021-07-21 06:11] LABS: Absolute Lymphocyte Count 2.04 X10^3/uL (0.83-4.51); Absolute Neutrophil Count 6.6 X10^3/uL (2.0-7.7); Basophil# 0.03 X10^3/uL; Basophil% 0.3 % (0-1); Eosinophil# 0.15 X10^3/uL; Eosinophils% 1.5 % (0-5); Hematocrit 38.4 % (40-54); Hemoglobin 12.9 g/dL (13.0-16.5); Lymphocyte # 2.04 X10^3/ul (0.83-4.51); Mean Corp Hgb Conc 33.6 g/dL (32-36); Mean Corpuscular Hgb 29.2 pg (27.0-32.0); Mean Corpuscular Volume 86.9 fL (80-94); Mean Platelet Vol. 10.5 fl (6.2-12.0); Monocyte# 1.36 X10^3/uL; Monocyte% 13.4 % (0-10); NRBC Flagged by Analyzer 0 % (0-5); Neutrophil # 6.55 X10^3/uL (2.7-7.7); Neutrophil % 64.3 % (47-70); Platelet Count 225 K/mm3 (150-450); RBC Distribution Width CV 13.9 % (11.6-14.6); RBC Distribution Width SD 44.4 fl (35.1-43.9); Red Blood Count 4.42 M/mm3 (4.6-6.2); White Blood Count 10.2 K/mm3 (4.4-11.0)
[2021-07-21 06:38] LABS: Anion Gap 6 (5-15); BUN 14 mg/dL (7-18); BUN/Creat Ratio 18.1 RATIO (10-20); Calcium,Total 8.7 mg/dL (8.5-10.1); Chloride 103 mmol/L (98-107); Creatinine, Serum 0.78 mg/dL (0.70-1.30); EST Glomerular Filtration Rate 109 mL/min (>60); Est Glom Filt Rate - Afr Amer 132 mL/min (>60); Estimated Creatinine Clearance 105.29 ml/min; Glucose 124 mg/dL (74-106); Potassium 4.1 mmol/L (3.5-5.1); Sodium Level 135 mmol/L (136-145)
[2021-07-21] MEDS: Ipratropium/Albuterol Sulfate 3 ML AMPUL.NEB INHALATION ×4 (07:15→19:22)
--- NOTE | 2021-07-21 08:56 | PCM.CONS.B ---
Consult Date of Consult: 07/21/21 Reason for Consult This is a patient is being seen at the request of Dr. Liriano and with the patient's permission. The patient is being seen for fractures of the transverse processes and ribs. Patient fell off the top of the ladder as he was getting off of his roof. This occurred 3 days ago. He has been in the hospital since then. He states that at first the pain was excruciating however it has lightened up considerably and he is able to walk now without much difficulty. He denies any pain in the lower extremities or any numbness in the lower extremities. He denies any weakness in the lower extremities. He denies difficulty urinating. As far as he knows he did not lose consciousness. He landed on his back from the top of the ladder at the roof line. He landed on soft ground. He denies any pain in his cervical area and he denies headaches. He denies any visual difficulties. He denies any abdominal pain. On examination he is neurologically intact. He has excellent motor strength of all the major muscle groups of both lower extremities. He is areflexic he has no patella no Achilles reflexes which is probably normal for him. He has no muscle atrophy. His lower extremities are well-developed. He has no long tract signs. Clonus is absent Babinski's are downgoing. His abdomen is soft and nontender. There is no evidence of organomegaly. I viewed the CT scan of his lumbar spine and plain x-rays. I see at least 3 fractures of the transverse processes on the left side. This occurs with massive paravertebral muscle contraction. He also has several rib fractures on the left side. There is no evidence of pneumothorax. I explained to Mr. Simms that eventually he should regain basically all of his function. Over the next several weeks and months the back will quit hurting as well the ribs. Anticipate a near 100% eventual recovery. This is the end of consultation on Brian Simms. This is Dr. Dotson dictating.
[2021-07-21] MEDS: Gabapentin 100 MG Capsule PO ×2 (09:15→21:12)
[2021-07-21] MEDS: Cholecalciferol (VIT D3) 25 MCG TABLET (1,000 UNITS) 50 MCG PO (09:15)
[2021-07-21] MEDS: 0.9% Saline Lock 10 ML Syringe IV ×2 (09:15→21:25)
[2021-07-21] MEDS: Lidocaine 5% Patch 2 PATCH TOPICAL (09:15)
--- NOTE | 2021-07-21 11:47 | PCM.PN.HOSP ---
Documented by User: Jarocho BRODERICK 07/21/21 11:53 Subjective Subjective Patient is a 61-year-old male comfortably resting in bed, alert and orient x3. Patient denies development of any new symptoms overnight. Does not appear in acute distress. Objective Data Objective Data Vital Signs: Vital Signs Temp Pulse Resp BP Pulse Ox 97.8 F 70 18 127/71 H 88 07/21/21 08:05 07/21/21 10:50 07/21/21 10:50 07/21/21 08:05 07/21/21 10:23 Oxygen Flow Rate (L/min) [ 7 AMBULATING with Oxygen #2] Oxygen Flow Rate (L/min) [ 6 AMBULATING with Oxygen #1] Oxygen Flow Rate (L/min) [At 4 REST with Oxygen] Oxygen Flow Rate (L/min) 4 Oxygen Delivery Method Nasal Cannula Weight: 220 lb 3.869 oz Body Mass Index (BMI) 31.6 Intake & Output: Intake and Output for Last 24 Hours 07/19/21 07/20/21 07/21/21 23:59 23:59 23:59 Intake Total 1485 / 1485 1625 / 1625 170 / 170 Output Total 700 / 700 Balance 785 / 785 1625 / 1625 170 / 170 Lab / Micro Data Result Diagrams: 07/21/21 05:30 07/21/21 05:30 Labs: Laboratory Results - last 24 hr 07/17/21 16:50: Diff Path Review Reviewed 07/21/21 05:30: WBC 10.2, RBC 4.42 L, Hgb 12.9 L, Hct 38.4 L, MCV 86.9, MCH 29.2, MCHC 33.6, RDW Std Deviation 44.4 H, RDW Coeff of Ervin 13.9, Plt Count 225, MPV 10.5, Immature Gran % (Auto) 0.500, Neut % (Auto) 64.3, Lymph % (Auto) 20.0, Hickman % (Auto) 13.4 H, Eos % (Auto) 1.5, Baso % (Auto) 0.3, Absolute Neuts (auto) 6.6, Absolute Lymphs (auto) 2.04, Nucleated RBC % 0 07/21/21 05:30: Sodium 135 L, Potassium 4.1, Chloride 103, Carbon Dioxide 26.0, Anion Gap 6, BUN 14, Creatinine 0.78, Estim Creat Clear Calc 105.29, Est GFR (MDRD) Af Amer 132, Est GFR (MDRD) Non-Af 109, BUN/Creatinine Ratio 18.1, Glucose 124 H, Calcium 8.7 Micro: Microbiology 07/19/21 13:45 Mucosa - Nasopharyngeal Respiratory Panel (PCR) - Final 07/19/21 14:00 Sputum, Expectorated/Coughed Gram Stain - Final 07/19/21 14:00 Sputum, Expectorated/Coughed Respiratory Culture - Preliminary Beta streptococcus 07/19/21 10:56 Urine, Clean Catch Legionella Antigen - Final 07/19/21 10:56 Urine, Clean Catch Streptococcus pneumoniae Antigen (M - Final 07/17/21 16:50 Nasal Secretion SARS-CoV-2 Antigen (Rapid) - Final Physical Exam Const alert, oriented x3 and no apparent distress HEENT head/scalp atraumatic and moist oral mucous membranes Head and Scalp: normocephalic Eyes PERRL and conjunctivae normal Neck no lymphadenopathy, supple and no JVD Resp normal respiratory effort, no retractions and no use of accessory muscles Cardio regular rate, regular rhythm and no JVD GI normal to inspection, nondistended, normoactive bowel sounds and soft to palpation Extremity normal to inspection Skin no rashes or lesions noted Neuro CN's II-XII intact bilaterally Psych affect normal Assessment & Plan Assessment/Plan (1) Concussion: QUALIFIERS: Encounter type: initial encounter Loss of consciousness presence/duration: without LOC Qualified Code(s): S06.0X0A - Concussion without loss of consciousness, initial encounter (2) Trauma: (3) Fall from ladder: QUALIFIERS: Encounter type: initial encounter Qualified Code(s): W11.XXXA - Fall on and from ladder, initial encounter (4) Multiple rib fractures: QUALIFIERS: Encounter type: initial encounter Fracture type: closed Laterality: left Qualified Code(s): S22.42XA - Multiple fractures of ribs, left side, initial encounter for closed fracture (5) Multiple transverse process fractures: PLAN: Day 4 Discharge planning: Current plan is for patient to discharge home when medically ready. 1) multiple rib and transverse process fractures Patient was admitted after falling from a roof approximately 12 feet above ground. Extensive work-up and consult with orthopedics and trauma specialist already completed, no need for surgical intervention and no intra-abdominal/intrathoracic emergency noted. transition of care specialist anticate full recovery for patient. Dr. Dotson has cleared patient for discharge. 2) acute hypoxic respiratory failure Patient desatted down to 86% on 6 L with ambulation, not appropriate for discharge at this time. CT of the chest obtained and demonstrated worsening right lower lobe pneumonia with mucoid obstruction in the right lower left lobe bronchus. Sputum culture preliminarily shows beta Streptococcus, awaiting sensitivities. Legionella and strep pneumo urine antigens negative, rapid Covid is negative. Viral PCR negative. We will continue supplemental oxygen and wean as tolerated, continue empiric Rocephin and azithromycin, await final culture and sensitivities. 3) concussion No encephalopathy myopathy noted on my evaluation. Brain CT obtained on admission did not demonstrate any intracranial trauma or hemorrhage. We will continue supportive management. 4) embedded tick Patient with large engorged tick about the thoracic region of the back. No arthralgias, headache or myalgias noted. No erythema migrans noted. Tick was removed with tweezers and affected area was cleaned and dressed. No need for doxycycline at this time. DVT prophylaxis - SCD's, chemoprophylaxis not indicated due to recent trauma. Patient seen by Jarocho Trejo PA-C, under the supervision of Dr. Murphy. Documented by User: Dr. Flip Murphy MD 07/21/21 13:59 Objective Data Lab / Micro Data Result Diagrams: 07/21/21 05:30 07/21/21 05:30 Assessment & Plan Addt'l Comments This patient was seen in conjunction with Jarocho Trejo PA-C. I have independently interviewed and examined the patient and reviewed pertinent historical, laboratory, and other data. Please refer to Jarocho Trejo PA-C's note for details of this patient's presentation, findings, and recommendations. I have reviewed Jarocho Trejo PA-C's note and concur with documented findings. In brief, patient is a 61-year-old gentleman who fell off a 11 foot ladder with subsequent pain to both shoulders back and hips. Patient did experience varus degree of injuries including multiple left rib fractures but no pneumothorax or hemothorax, fractures of the left transverse process of L1-L2-L3 and L4. Neurosurgery at the tertiary care center was apparently contacted recommendation is for conservative management and pain management at this point 07/21/2021 patient seen still remains significantly hypoxic. Patient was tested for home oxygen needs desaturated with oxygen saturation dropping to the mid 80s on 7 L. The patient continues hypoxia and order was given for patient to undergo subsequent evaluation with CTA of the chest Physical Examination: GENERAL: cooperative HEENT: Atraumatic; EYES; Anicteric, Normal Conjunctiva NECK; supple, normal thyroid, RESPIRATORY: Diminished to auscultation CARDIOVASCULAR: Regular S1 S2, GI: soft, normoactive bowel sounds, : No Renal angle tenderness; EXTREMITIES: No edema, no clubbing, MUSCULOSKELETAL: no muscle wasting NEURO: Awake; no lateralizing signs. SKIN: No Rash PSYCH; Flat affect Assessment: 1. Fall with multiple left-sided rib fractures and transverse process fractures involving L1-L2-L3 and L4 2. Acute hypoxic respiratory failure 3. Essential hypertension 4. Class I obesity with BMI of 31.6 5. Embedded tick on upper trunk 6. DVT prophylaxis Recommendations: 1. I have discussed the results of my overview and impressions with the patient 2. Options for management were reviewed Total time spent by myself and the advanced practice practitioner evaluating patient, reviewing labs, subsequent management decisions, discussion with patient as well as other providers 40 minutes ( 25 of which was spent by myself) Charges/Coding Visit Charges Inpatient E&M: 95886 Subs Hosp L3
[2021-07-21] MEDS: amLODIPine 10 MG Tablet PO (21:12)
[2021-07-21] MEDS: Lisinopril 20 MG Tablet PO (21:13)
[2021-07-22] VITALS (8 sets, daily range): BP systolic 124–136; BP diastolic 77–87; PULSE 71–89; RESP 16–20; TEMP 36.4–36.7; O2SAT 88–97
[2021-07-22] MEDS: oxyCODONE 5 MG Tablet 10 MG PO ×3 (02:32→12:39)
[2021-07-22] MEDS: Acetaminophen 500 MG Tablet 1000 MG PO (06:10)
[2021-07-22] MEDS: Lidocaine 5% Patch 2 PATCH TOPICAL (09:45)
[2021-07-22] MEDS: Gabapentin 100 MG Capsule PO (09:45)
[2021-07-22] MEDS: Cholecalciferol (VIT D3) 25 MCG TABLET (1,000 UNITS) 50 MCG PO (09:45)
[2021-07-22] MEDS: 0.9% Saline Lock 10 ML Syringe IV (09:47)
--- NOTE | 2021-07-22 10:51 | DCINST_ITS ---
Discharge Instructions Diet Discharge Diet: No restrictions Activity Discharge Activity: Return to Normal Activity Weight Bearing Status: Weight bearing as tolerated Dressing / Incision Call your doctor if you observe: Fever of 101 or Higher, Numbness or Tingling, Shortness of breath, Dizziness, Chest pain, Increased palpitations (irregular heartbeat) and Calf discomfort Follow Up Care Please Follow Up With: Primary care provider When: Within the next two weeks. Test Results: Test results from this visit will be discussed in further detail at your follow-up appointment, if applicable. Discharge Plan Admission Admit Date/Time: 07/19/21 07:04 Primary Reason for Your Visit: Fall Attending Provider: Flip Murphy Primary Care Provider: Erich Concepcion NP Consulting Providers: Refugio Dotson Discharge Orders/Prescriptions Prescriptions: New cefdinir 300 mg capsule 300 mg PO BID Qty: 6 RF: 0 azithromycin 500 mg tablet 500 mg PO DAILY 2 Days Qty: 2 RF: 0 oxycodone 5 mg tablet 5 mg PO Q8H PRN (Reason: pain) 5 Days Qty: 15 RF: 0 Continued amlodipine 10 mg tablet 10 mg PO QHS RF: 0 cholecalciferol (vitamin D3) 50 mcg (2,000 unit) capsule 50 mcg PO DAILY RF: 0 lisinopril 20 mg tablet 20 mg PO QHS RF: 0 gabapentin 100 mg capsule 100 mg PO BID RF: 0 Referrals / Follow Up: Refugio Dotson DO [STAFF PHYSICIAN] - See Referral Note (Call Dr. Dotson's office to establish outpatient orthopedic follow up. ) Erich Concepcion NP, [employer]IAN-[employer] [Primary Care Provider] - Within 2 Weeks Disposition Disposition (needs filled in before D/C Order can be placed): Home, Self Care
--- NOTE | 2021-07-22 10:53 | CASEMGMT ---
Per Alvarez GONCALVES, pt qualifies for 3L nc w/ exertion only and pt stated preference for [employer] previously. Order obtained and faxed to [facility]. E-tank to be provided to pt from [facility]. Pt has been up ad ev in room and states no further questions/concerns/needs. Mona GONCALVES CM
[2021-07-22] MEDS: Ipratropium/Albuterol Sulfate 3 ML AMPUL.NEB INHALATION (10:54)
--- NOTE | 2021-07-22 12:14 | PHA.DC.MC ---
Pharmacy Service has performed discharge medication reconciliation and counseling for this patient. 1. AZITHROMYCIN 500MG PO DAILY X 2 DAYS 2. CEFDINIR 300MG PO BID X 3 DAYS 3. OXYCODONE 5MG PO Q8H PRN PAIN The patient's discharge medication list was reviewed for discrepancies and discrepancies were resolved. Home Medications amlodipine 10 mg PO QHS 07/17/21 cholecalciferol (vitamin D3) 50 mcg PO DAILY 07/17/21 gabapentin 100 mg PO BID 07/17/21 lisinopril 20 mg PO QHS 07/17/21 azithromycin 500 mg PO DAILY 2 Days #2 tab 07/22/21 cefdinir 300 mg PO BID #6 cap 07/22/21 oxycodone 5 mg PO Q8H PRN 5 Days #15 tab 07/22/21 The patient was counseled on the following discharge medications and changes in medications for homegoing were reviewed. The Reason for Use, instructions for use, and potential side effects were reviewed for all new medications. The patient's questions regarding all of their medications were answered. The patient was able to verbally demonstrate an understanding of their discharge medications.
--- NOTE | 2021-07-22 13:09 | NURSING ---
Reviewed charting with Alexus Romero RN
--- NOTE | 2021-07-22 13:17 | PCM.DC.SUM ---
Documented by User: Jarocho BRODERICK 07/22/21 13:28 Providers Date of Admission: 07/19/21 Date of Discharge: 07/22/21 Primary Care Physician: ELENA Early Consultations 07/20/21 08:22 Consult: Neurology Routine Consulting Provider: Refugio Dotson Reason for Consult: Lumbar Fxs EMERGENT Consult: No MD Notified: Yes Date Notified: 07/20/21 Time Notified: 08:23 Method of Notification: Paged via graining press operator Reason For Visit: FALL Diagnosis Discharge Diagnosis (1) Concussion: Status: Acute Code(s): S06.0X9A - Concussion with loss of consciousness of unspecified duration, initial encounter Qualifiers: Encounter type: initial encounter Loss of consciousness presence/duration: without LOC Qualified Code(s): S06.0X0A - Concussion without loss of consciousness, initial encounter (2) Trauma: Status: Acute Code(s): T14.90XA - Injury, unspecified, initial encounter (3) Fall from ladder: Status: Acute Code(s): W11.XXXA - Fall on and from ladder, initial encounter Qualifiers: Encounter type: initial encounter Qualified Code(s): W11.XXXA - Fall on and from ladder, initial encounter (4) Multiple rib fractures: Status: Acute Code(s): S22.49XA - Multiple fractures of ribs, unspecified side, initial encounter for closed fracture Qualifiers: Encounter type: initial encounter Fracture type: closed Laterality: left Qualified Code(s): S22.42XA - Multiple fractures of ribs, left side, initial encounter for closed fracture (5) Multiple transverse process fractures: Status: Acute Medications at Discharge Home Medications amlodipine 10 mg PO QHS 07/17/21 cholecalciferol (vitamin D3) 50 mcg PO DAILY 07/17/21 gabapentin 100 mg PO BID 07/17/21 lisinopril 20 mg PO QHS 07/17/21 azithromycin 500 mg PO DAILY 2 Days #2 tab 07/22/21 cefdinir 300 mg PO BID #6 cap 07/22/21 oxycodone 5 mg PO Q8H PRN 5 Days #15 tab 07/22/21 Hospital Course Summary of Care Provided Minutes Spent on Discharge: 20 Hospital Course: Patient is a 61-year-old male who was admitted to [facility] on 07/17/2021 for evaluation and management of multiple rib and transverse process fractures sustained during a fall. Hospital course and management as below. 1) multiple rib and transverse process fractures Patient was admitted after falling from a roof approximately 12 feet above ground. Extensive work-up and consult with orthopedics and trauma specialist completed, no need for surgical intervention. no intra-abdominal/intrathoracic emergency noted. nerve specialist anticate full recovery for patient. Patient is to follow-up with Dr. Dotson within the next 2 to 3 weeks for appropriate outpatient follow-up. As needed oxycodone provided for the next 5 days, patient is to follow-up with primary care provider thereafter. 2) acute hypoxic respiratory failure secondary to suspected right lower lobe pneumonia. Patient qualified for home oxygen as required 3 L of oxygen to maintain oxygen saturations above 90%. CT of the chest obtained and demonstrated worsening right lower lobe pneumonia with mucoid obstruction in the right lower left lobe bronchus. Sputum culture obtained and demonstrated strep agalactiae. Rapid COVID and viral PCR negative. Legionella and strep pneumo urine antigens are negative. Will continue cefdinir and azithromycin on discharge. Home oxygen prescription provided on discharge. 3) concussion No encephalopathy noted on my evaluation. Brain CT obtained on admission did not demonstrate any intracranial trauma or hemorrhage. Supportive management was provided throughout hospital admission. 4) embedded tick Patient with large engorged tick about the thoracic region of the back. No arthralgias, headache or myalgias noted. No erythema migrans noted. Tick was removed with tweezers and affected area was cleaned and dressed. No need for doxycycline at this time. Patient was advised that if he begins to develop symptoms described above, to follow-up with his primary care provider for initiation of doxycycline. Patient seen by Jarocho Trejo PA-C, under the supervision of Dr. Murphy. Physical Exam Narrative Patient is a 61-year-old male comfortably resting in a chair, alert and orient x3. Patient denies development of any new symptoms overnight, reports his pain from his recent trauma is well controlled. Does not appear in acute distress. Const alert, oriented x3 and no apparent distress HEENT normocephalic, head/scalp atraumatic and hearing grossly normal bilaterally Eyes PERRL and conjunctivae normal Neck no lymphadenopathy, supple and no JVD Resp normal respiratory effort, no retractions and no use of accessory muscles Cardio regular rate, regular rhythm and no JVD GI normal to inspection, nondistended, normoactive bowel sounds, soft to palpation and non-tender Extremity normal to inspection Skin no rashes or lesions noted Neuro CN's II-XII intact bilaterally Psych affect normal Weight / BMI Weight Weight: 220 lb 3.869 oz Body Mass Index (BMI) 31.6 ABG / Lab / Microbiology Data Result Diagrams: 07/21/21 05:30 07/21/21 05:30 Microbiology: Microbiology 07/19/21 14:00 Sputum, Expectorated/Coughed Gram Stain - Final 07/19/21 14:00 Sputum, Expectorated/Coughed Respiratory Culture - Final Streptococcus agalactiae (B) Mixed Madeleine 07/19/21 13:45 Mucosa - Nasopharyngeal Respiratory Panel (PCR) - Final 07/19/21 10:56 Urine, Clean Catch Legionella Antigen - Final 07/19/21 10:56 Urine, Clean Catch Streptococcus pneumoniae Antigen (M - Final 07/17/21 16:50 Nasal Secretion SARS-CoV-2 Antigen (Rapid) - Final D/C Instructions Discharge Diet: No restrictions Weight Bearing Status: Weight bearing as tolerated Call your doctor if you observe: Fever of 101 or Higher, Numbness or Tingling, Shortness of breath, Dizziness, Chest pain, Increased palpitations (irregular heartbeat) and Calf discomfort Please Follow Up With: Primary care provider When: Within the next two weeks. Meaningful Use Info Meaningful Use Diagnoses (Choose all that apply): None applicable Discharge Plan Admission Admit Date/Time: 07/19/21 07:04 Primary Reason for Your Visit: Fall Attending Provider: Flip Murphy Primary Care Provider: Erich Concepcion NP Consulting Providers: Refugio Dotson Discharge Orders/Prescriptions Prescriptions: New cefdinir 300 mg capsule 300 mg PO BID Qty: 6 RF: 0 azithromycin 500 mg tablet 500 mg PO DAILY 2 Days Qty: 2 RF: 0 oxycodone 5 mg tablet 5 mg PO Q8H PRN (Reason: pain) 5 Days Qty: 15 RF: 0 Continued amlodipine 10 mg tablet 10 mg PO QHS RF: 0 cholecalciferol (vitamin D3) 50 mcg (2,000 unit) capsule 50 mcg PO DAILY RF: 0 lisinopril 20 mg tablet 20 mg PO QHS RF: 0 gabapentin 100 mg capsule 100 mg PO BID RF: 0 Referrals / Follow Up: Refugio Dotson DO [STAFF PHYSICIAN] - See Referral Note (Call Dr. Dotson's office to establish outpatient orthopedic follow up. ) Erich Concepcion LABORATORY COORDINATOR, LABORATORY COORDINATOR-C [Primary Care Provider] - Within 2 Weeks Disposition Disposition (needs filled in before D/C Order can be placed): Home, Self Care Documented by User: Dr. Flip Murphy MD 07/22/21 14:43 Providers Date of Admission: 07/19/21 Reason For Visit: FALL Medications at Discharge Home Medications amlodipine 10 mg PO QHS 07/17/21 cholecalciferol (vitamin D3) 50 mcg PO DAILY 07/17/21 gabapentin 100 mg PO BID 07/17/21 lisinopril 20 mg PO QHS 07/17/21 azithromycin 500 mg PO DAILY 2 Days #2 tab 07/22/21 cefdinir 300 mg PO BID #6 cap 07/22/21 oxycodone 5 mg PO Q8H PRN 5 Days #15 tab 07/22/21 Hospital Course Summary of Care Provided Minutes Spent on Discharge: 45 Hospital Course: This patient was seen in conjunction with Jarocho Trejo PA-C. I have independently interviewed and examined the patient and reviewed pertinent historical, laboratory, and other data. Please refer to Jarocho rTejo PA-C's note for details of this patient's presentation, findings, and recommendations. I have reviewed Jarocho Trejo PA-C's note and concur with documented findings. In brief, patient is a 61-year-old gentleman who fell off a 11 foot ladder with subsequent pain to both shoulders back and hips. Patient did experience varus degree of injuries including multiple left rib fractures but no pneumothorax or hemothorax, fractures of the left transverse process of L1-L2-L3 and L4. Neurosurgery at the tertiary care center was apparently contacted recommendation is for conservative management and pain management at this point 07/21/2021 patient seen still remains significantly hypoxic. Patient was tested for home oxygen needs desaturated with oxygen saturation dropping to the mid 80s on 7 L. The patient continues hypoxia and order was given for patient to undergo subsequent evaluation with CTA of the chest 07/22/2021 patient seen his oxygen requirement stabilized. Physical Examination: GENERAL: cooperative HEENT: Atraumatic; EYES; Anicteric, Normal Conjunctiva NECK; supple, normal thyroid, RESPIRATORY: Diminished to auscultation CARDIOVASCULAR: Regular S1 S2, GI: soft, normoactive bowel sounds, : No Renal angle tenderness; EXTREMITIES: No edema, no clubbing, MUSCULOSKELETAL: no muscle wasting NEURO: Awake; no lateralizing signs. SKIN: No Rash PSYCH; Flat affect Assessment: 1. Fall with multiple left-sided rib fractures and transverse process fractures involving L1-L2-L3 and L4 2. Acute hypoxic respiratory failure 3. Essential hypertension 4. Class I obesity with BMI of 31.6 5. Embedded tick on upper trunk 6. DVT prophylaxis Hospital course: As documented above Total time spent by myself and the advanced practice practitioner evaluating patient, reviewing labs, subsequent management decisions, discussion with patient as well as other providers 45 minutes ( 25 of which was spent by myself) ABG / Lab / Microbiology Data Result Diagrams: 07/21/21 05:30 07/21/21 05:30 Discharge Plan Admission Admit Date/Time: 07/19/21 07:04 Primary Reason for Your Visit: Fall Attending Provider: Flip Murphy Primary Care Provider: Erich Concepcion NP Consulting Providers: Refugio Dotson Discharge Orders/Prescriptions Prescriptions: New cefdinir 300 mg capsule 300 mg PO BID Qty: 6 RF: 0 azithromycin 500 mg tablet 500 mg PO DAILY 2 Days Qty: 2 RF: 0 oxycodone 5 mg tablet 5 mg PO Q8H PRN (Reason: pain) 5 Days Qty: 15 RF: 0 Continued amlodipine 10 mg tablet 10 mg PO QHS RF: 0 cholecalciferol (vitamin D3) 50 mcg (2,000 unit) capsule 50 mcg PO DAILY RF: 0 lisinopril 20 mg tablet 20 mg PO QHS RF: 0 gabapentin 100 mg capsule 100 mg PO BID RF: 0 Referrals / Follow Up: Refugio Dotson DO [STAFF PHYSICIAN] - See Referral Note (Call Dr. Dotson's office to establish outpatient orthopedic follow up. ) Erich Concepcion NP, LABORATORY COORDINATOR-C [Primary Care Provider] - Within 2 Weeks Disposition Disposition (needs filled in before D/C Order can be placed): Home, Self Care Charges/Coding Visit Charges Inpatient E&M: [id number] Disch Hosp Hospital Course Consultations Consultations: Consultations 07/20/21 08:22 Consult: Neurology Routine Consulting Provider: Refugio Dotson Reason for Consult: Lumbar Fxs EMERGENT Consult: No MD Notified: Yes Date Notified: 07/20/21 Time Notified: 08:23 Method of Notification: Paged via graining press operator
== END 2021-07-22 13:20 | disposition home or self-care (01) | DRG 57 ==
LOC: ED 18:55 → PCU 19:07
PROVIDERS: Hospitalist; Physician Assistant; Admitting Provider Family Medicine; Emergency Provider Emergency Medicine; PCP Nurse Practitioner Family; Visit Provider Internal Medicine
DX: S06.0X0A Concussion without loss of consciousness, initial encounter (principal); J96.01 Acute respiratory failure with hypoxia; S32.019A Unspecified fracture of first lumbar vertebra, initial encounter for closed fracture; I72.2 Aneurysm of renal artery; J18.9 Pneumonia, unspecified organism; S22.42XA Multiple fractures of ribs, left side, initial encounter for closed fracture; S32.029A Unspecified fracture of second lumbar vertebra, initial encounter for closed fracture; S32.039A Unspecified fracture of third lumbar vertebra, initial encounter for closed fracture; S32.049A Unspecified fracture of fourth lumbar vertebra, initial encounter for closed fracture; I10 Essential (primary) hypertension; F17.210 Nicotine dependence, cigarettes, uncomplicated; T63.481A Toxic effect of venom of other arthropod, accidental (unintentional), initial encounter; W11.XXXA Fall on and from ladder, initial encounter; G89.29 Other chronic pain; Z20.822 Contact with and (suspected) exposure to COVID-19; E66.9 Obesity, unspecified; Z68.31 Body mass index [BMI] 31.0-31.9, adult; Z79.899 Other long term (current) drug therapy; Y93.H9 Activity, other involving exterior property and land maintenance, building and construction; Y99.9 Unspecified external cause status; Y92.008 Other place in unspecified non-institutional (private) residence as the place of occurrence of the external cause; R94.31 Abnormal electrocardiogram [ECG] [EKG]
CPT/HCPCS: 36415; 36600; 70450; 71045; 71111; 71260; 72072; 72100; 72125; 72128; 72131; 74177; 80048; 80053; 82803; 84484; 85025; 85610; 85730; 87070; 87077; 87186; 87205; 87449; 87633; 87635; 87811; 93005; 94002; 94003; 94640; 94660; 94667; 94668; 94762; 97166; 97530; 97535; 99251; 99284; 99406; Q9967; A4216; G0463; J0696; J2405; U0003; U0005

== ENCOUNTER → 2022-01-21 | Outpatient (CLI) | payer MEDICAID, SELFPAY ==
--- NOTE | 2022-01-21 06:20 | MRI_ITS ---
HISTORY: herniated disc lumbar spine, low back pain, right upper thigh pain. TECHNIQUE: Multiplanar and multisequence MR images of the lumbar spine were obtained without intravenous contrast. 126 images. COMPARISON: XR 08/05/2021, CT 07/17/2021. FINDINGS: VERTEBRAE: Transitional lumbosacral anatomy with a rudimentary disc designated at S1-2. Vertebral body heights maintained. Mild degenerative bone marrow endplate changes at L2-3. ALIGNMENT: No significant anterior or posterior subluxation. CONUS: Normal morphology and position of the conus medullaris at L2. INTERVERTEBRAL DISCS: T12-L1: No significant posterior disc protrusion, central canal stenosis, or foraminal narrowing based on the sagittal images. L1-2: Mild posterior disc bulge osteophyte complex with facet arthropathy resulting in minimal narrowing of the thecal sac and mild bilateral foraminal narrowing. L2-3: Mild disc bulge with facet arthropathy resulting in mild central canal stenosis and mild-moderate bilateral foraminal narrowing. L3-4: Mild disc bulge with facet arthropathy superimposed on developmentally short pedicles resulting in moderate central canal stenosis, mild-moderate left, and mild right foraminal narrowing. L4-5: Mild disc bulge with facet arthropathy superimposed on developmentally short pedicles resulting in severe central canal stenosis and mild bilateral foraminal narrowing. L5-S1: Mild disc bulge with facet arthropathy superimposed on a developmentally narrow spinal canal resulting in mild central canal stenosis, moderate left foraminal narrowing with abutment of the left L5 nerve root, and mild right foraminal narrowing. SOFT TISSUES: Posterior soft tissue edema noted. MRI/Spine Lumbar (Routine) IMPRESSION: Mild multilevel degenerative disc disease superimposed on a developmentally narrow spinal canal resulting in moderate and severe lumbar spinal canal stenosis as above. Electronically Signed: Emely Trinidad MD at 13:11 EDT ,
== END | disposition home or self-care (01) ==
LOC: MRI 06:20
PROVIDERS: PCP Nurse Practitioner Family; Referring Provider Orthopaedic Surgery; Visit Provider Orthopaedic Surgery
DX: M51.26 Other intervertebral disc displacement, lumbar region (principal)
CPT/HCPCS: 72148

== ENCOUNTER → 2022-03-01 | Outpatient (CLI) | payer MEDICAID, SELFPAY ==
[2022-03-01 12:21] LABS: Absolute Lymphocyte Count 3.47 X10^3/uL (0.83-4.51); Absolute Neutrophil Count 3.6 X10^3/uL (2.0-7.7); Basophil# 0.04 X10^3/uL; Basophil% 0.5 % (0-1); Eosinophil# 0.21 X10^3/uL; Eosinophils% 2.6 % (0-5); Hematocrit 47.2 % (40-54); Hemoglobin 15.4 g/dL (13.0-16.5); Lymphocyte # 3.47 X10^3/ul (0.83-4.51); Lymphocyte % 42.5 % (19-41); Mean Corp Hgb Conc 32.6 g/dL (32-36); Mean Corpuscular Hgb 29.1 pg (27.0-32.0); Mean Corpuscular Volume 89.2 fL (80-94); Monocyte# 0.74 X10^3/uL; Monocyte% 9.1 % (0-10); NRBC Flagged by Analyzer 0 % (0-5); Neutrophil # 3.63 X10^3/uL (2.7-7.7); Neutrophil % 44.4 % (47-70); Platelet Count 275 K/mm3 (150-450); RBC Distribution Width CV 14.4 % (11.6-14.6); RBC Distribution Width SD 46.7 fl (35.1-43.9); Red Blood Count 5.29 M/mm3 (4.6-6.2); White Blood Count 8.2 K/mm3 (4.4-11.0)
[2022-03-01 13:27] LABS: ALB/GLOB Ratio 0.9 RATIO (0.9-2.4); AST(SGOT) 21 U/L (15-37); Alanine Aminotransfer ALT/SGPT 44 U/L (16-61); Albumin, Serum 3.7 g/dL (3.2-5.0); Alkaline Phosphatase 58 U/L (45-117); Anion Gap 9 (5-15); BUN 13 mg/dL (7-18); BUN/Creat Ratio 12.6 RATIO (10-20); Calcium,Total 9.1 mg/dL (8.5-10.1); Chloride 105 mmol/L (98-107); Cholesterol 230 mg/dL (200); Creatinine, Serum 1.03 mg/dL (0.70-1.30); EST Glomerular Filtration Rate 78 mL/min (>60); Est Glom Filt Rate - Afr Amer 95 mL/min (>60); Glucose 185 mg/dL (74-106); High Density Lipoprotein 38 mg/dL; Potassium 4.2 mmol/L (3.5-5.1); Protein, Total 7.7 g/dL (6.4-8.2); Sodium Level 135 mmol/L (136-145); Triglycerides 158 mg/dL; Very Low Density Lipoprotein 32 mg/dL (5-40)
[2022-03-01 18:56] LABS: Hemoglobin A1c 6.3 % (3.8-5.6)
== END | disposition home or self-care (01) ==
LOC: BIMLAB 09:30
PROVIDERS: PCP Nurse Practitioner Family; Referring Provider Nurse Practitioner Family; Visit Provider Nurse Practitioner Family
DX: I10 Essential (primary) hypertension (principal); Z72.0 Tobacco use; R73.09 Other abnormal glucose
CPT/HCPCS: 36415; 80053; 80061; 83036; 85025

== ENCOUNTER 2022-07-27 09:00 | Outpatient (RCR) | payer MEDICAID, SELFPAY ==
--- NOTE | 2022-05-03 10:22 | HP.PTEVAL_ITS ---
Patient's Visit Information JENNIFER BUSTAMANTE is a 62 year old M referred to Physical Therapy by Dr. Deann Shahid MD with a diagnosis of Low back pain. Date of Evaluation: 04/27/22 Physical Therapist: Ld Cornejo DPT - Visit Plan Frequency: 2x /Week Duration: 4 Weeks Plan: Start with prone extension progression (will have to be slow progression). Trial US to R side of lumbar spine L2-L3 region. Add in neutral spine core iso as able. Progress in both ROM and strengthening as able. - Subjective Pt. is here today for his initial evaluation with diagnosis of low back pain. Pt. reports having pain in his back for years, but has been progressively getting worse. Pt. reports having some injections which was helpful, but not fully helpful. He denies radicular symptoms. Pt. isolated to lumbar spine. Pt. reports some difficulty with sleeping as well. 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 Increases pain: standing, walking, prolonged sitting, lifting, bending over. Decreases pain: nothing. Pt. report he has multiple levels of disc herniations as well. Pt. is hopeful to reduce symptoms in order to get back to all work and recreational activities with decreased pain and tightness in his back. - Pain Lumbar spine Pain Intensity (Out of 10): 7 Pain Intensity Range: 4, 9 - Objective POSTURE: pt. has slight flexed posture in stance. Pt. has no marked lateral shift noted. Pt. is able to correct posture, but difficult to maintain. PALPATION: Pt. has increased symptoms along lumbar paraspinals R worse than L. Pt. has hypomobility with spring testing throughout spine. Pain more at upper lumbar region. No distal LE pain. NEURO: Pt. has normal BLE DTR and normal sensation in BLEs. Pt. is able to rise on heels and toes without issues. ROM: LUMBAR SPINE: flexion min loss NE, exte mod loss increase NW, SB Rmin loss increase NW, SB L nil loss NE, rotation R worse than L min loss bilat. Pt. has tight B HS and tight B hip flexors as well. MMT: PT. has 5/5 strength throughout distal LEs. Pt. has 4+/5 throughout B hips, except 4/5 hip extension. Core strength- poor+. GAIT: Pt. has fairly normal gait pattern, but is slightly flexed throughout. Pt. has normal stride length, but does have reduced arm swing indicative of guarded posture. - Special Tests L/S Slump test left side: Negative L/S Slump test right side: Negative L/S Left Straight Leg Raise: Negative L/S Right Straight Leg Raise: Negative Lumbar Standing: Flexion - Mechanical Response: No effect Lumbar Standing: Flexion - Symptoms During Testing: No effect Lumbar Standing: Flexion - Symptoms After Testing: No effect Lumbar Standing: Extension - Mechanical Response: No effect Lumbar Standing: Extension - Symptoms During Testing: Abolishes Lumbar Standing: Extension - Symptoms After Testing: No worse Lumbar Standing: Right Side Glides - Mechanical Response: No effect Lumbar Standing: Right Side [place] - Symptoms During Testing: No effect Lumbar Standing: Right Side [place] - Symptoms After Testing: No effect Lumbar Standing: Left Side [place] - Mechanical Response: No effect Lumbar Standing: Left Side [place] - Symptoms During Testing: No effect Lumbar Standing: Left Side [place] - Symptoms After Testing: No effect Lumbar Lying: Flexion - Mechanical Response: No effect Lumbar Lying: Flexion - Symptoms During Testing: No effect Lumbar Lying: Flexion - Symptoms After Testing: No effect Lumbar Lying: Extension - Mechanical Response: No effect Lumbar Lying: Extension - Symptoms During Testing: Decreases Lumbar Lying: Extension - Symptoms After Testing: No better Comments:: slightly better upon walking. Lumbar Static: Slouched Sit - Mechanical Response: No effect Lumbar Static: Slouched Sit - Symptoms During Testing: Increases Lumbar Static: Slouched Sit - Symptoms After Testing: No worse Lumbar Static: Sitting Erect - Mechanical Response: No effect Lumbar Static: Sitting Erect - Symptoms During Testing: Decreases Lumbar Static: Sitting Erect - Symptoms After Testing: No better Lumbar Static:Lying Prone in Extension - Mechanical Response: No effect Lumbar Static: Lying Prone in Extension - Sx During Testing: Decreases Lumbar Static: Lying Prone in Extension - Sx After Testing: Better Comments:: slightly better upon standing and walking. - Balance/Special Test Scores Oswestry Low Back Score: 20 - Goals Goal 1:: LTG: Pt. to be I with HEP. Goal Time Frame: 4-6 Weeks Goal 2:: STG: Pt. to sleep throughout the night without increase in symptoms. Goal Time Frame: 2-4 Weeks Goal 3:: LTG: Pt. to have increased lumbar extension by 50% without increase in symptoms. Goal Time Frame: 4-6 Weeks Goal 4:: LTG: pt. to ambulation without increase in symptoms for at least 6 min. Goal Time Frame: 4-6 Weeks Goal 5:: LTG: Pt. to have increased Core strength to fair in order to stabilize his lumbar spine with all functional activities. Goal Time Frame: 4-6 Weeks Goal 6:: LTG: Pt. to complete all work activities without increase in symptoms. Goal Time Frame: 4-6 Weeks - Rehabilitation Potential Physical Therapy Diagnosis: Pt. has signs and symptoms consistent with Low back pain. Pt. seemed to have slight reduction with prone lying, but slightly. He does have some marked weakness as well. Pt. would benefit from PT to work on ROM and progress core stability. He needs to have improved lumbar extension and tolerance to functional mobility. Rehabilitation Potential: Good - Anticipated Interventions Patient/Client Instruction: Educate patient on: Condition, Plan of Care, Risk Factors, Benefits of Fitness Program For the Purpose of:: To foster healthy habits, To improve decision making, To facilitate caregiver knowledge, To improve self management, To prevent re- injury, To improve ability to perform tasks related to life management Therapeutic Exercise to Include: Strength training, Power training, Endurance training, Postural training, Flexibilty training, Passive ROM, Active ROM, Dynamic Lumbar Stabilization, Eleni Exercises For the Purpose of:: To decrease pain, To increase ROM, To improve nutrient delivery to tissue, To increase oxygenation perfusion, To improve muscle performance and motor function, To improve ability to perform ADL's, To increase tolerance to activity/condition/position, To improve health of tissue, To decrease soft tissue restriction, To increase flexibility/ROM Manual Therapy Techniques to Include: Mobilization, Functional dry needling, Soft tissue mobilization For the Purpose of:: To decrease pain, To increase ROM, To improve nutrient delivery to tissue, To increase oxygenation perfusion, To improve muscle performance and motor function Ultrasound (thermal/non thermal): Yes For the Purpose of:: To decrease pain, To decrease swelling/inflammation, To increase ROM, To improve nutrient delivery to tissue Thank you for the opportunity to evaluate your patient. For Medicare and Medicare HMO plans, please review the plan of care and approve it. It will need to be FAXED BACK to us at [phone] for Medicare purposes. For Medicare only, by signing this I certify the plan of care. Please let me know if there are questions or concerns regarding this plan of care. Physician Signature: Date:
--- NOTE | 2022-05-25 10:27 | HP.PTREVAL_ITS ---
Dr. Deann Shahid MD, It has been my pleasure to treat JENNIFER BUSTAMANTE over the last 8 visits for Low back pain. Please see the progress note below for an update on the physical therapy plan of care! Subjective: Pt. reports having 4/10 pain today. Pt. reports being 75% better overall. He reports that his symptoms are a constant, but they are less severe than they were. pain only on the R side from ~T10-L5. Pt. reports being able to ride ~25 miles on his bike this past week. Objective/Function: ROM: flexion- full motion increase NW upon returning, extension mod loss decrease NB, SB nil loss Mild increase NW wit R side bending, rotation min loss. Tight HS, but improved. Core strength- fair-. No pain with testing, but had marked increase in fatigue. 6 MWT: patient ambulated 1011feet no AD. Mild increase in LBP. Pt. reports sleeping with mild increase in LBP, but not waking him up. Pt. reports overall pain has reduced, no sharp pain, but is still having a nagging constant symptom. He did report increased pain with prolonged sitting in car (4 hours), but resolved with in a day. Plan Plan: Cont. with PT x2 week with focus on core strength/stability. May use US as needed, but would like to progress extension ROM and core strength. Balance/Gait/Functional tests - Balance/Special Test Scores Oswestry Low Back Score: 13 Goals Goal 1:: LTG: Pt. to be I with HEP. Goal Time Frame: 4-6 Weeks Goal Progress: Progressing Goal 2:: STG: Pt. to sleep throughout the night without increase in symptoms. Goal Time Frame: 2-4 Weeks Goal Progress: Progressing Goal 3:: LTG: Pt. to have increased lumbar extension by 50% without increase in symptoms. Goal Time Frame: 4-6 Weeks Goal Progress: Progressing Goal 4:: LTG: pt. to ambulation without increase in symptoms for at least 6 min. Goal Time Frame: 4-6 Weeks Goal Progress: Progressing Goal 5:: LTG: Pt. to have increased Core strength to fair in order to stabilize his lumbar spine with all functional activities. Goal Time Frame: 4-6 Weeks Goal Progress: Progressing Goal 6:: LTG: Pt. to complete all work activities without increase in symptoms. Goal Time Frame: 4-6 Weeks Goal Progress: Progressing Anticipated Interventions Patient/Client Instruction: Educate patient on: Condition, Plan of Care, Risk Factors, Benefits of Fitness Program For the Purpose of:: To foster healthy habits, To improve decision making, To facilitate caregiver knowledge, To improve self management, To prevent re- injury, To improve ability to perform tasks related to life management Therapeutic Exercise to Include: Strength training, Power training, Endurance training, Postural training, Flexibilty training, Passive ROM, Active ROM, Dynamic Lumbar Stabilization, Eleni Exercises For the Purpose of:: To decrease pain, To increase ROM, To improve nutrient delivery to tissue, To increase oxygenation perfusion, To improve muscle performance and motor function, To improve ability to perform ADL's, To increase tolerance to activity/condition/position, To improve health of tissue, To decrease soft tissue restriction, To increase flexibility/ROM Manual Therapy Techniques to Include: Mobilization, Functional dry needling, Soft tissue mobilization For the Purpose of:: To decrease pain, To increase ROM, To improve nutrient delivery to tissue, To increase oxygenation perfusion, To improve muscle performance and motor function Ultrasound (thermal/non thermal): Yes For the Purpose of:: To decrease pain, To decrease swelling/inflammation, To increase ROM, To improve nutrient delivery to tissue Please do not hesitate to contact me at [phone] by phone or if you have questions or concerns regarding this new plan of care! Sincerely, ARBEN BairdT
== END 2022-07-27 19:00 | disposition home or self-care (01) ==
LOC: PT 09:00
PROVIDERS: PCP Nurse Practitioner Family; Referring Provider Anesthesiology Pain Medicine; Visit Provider Anesthesiology Pain Medicine
DX: M54.9 Dorsalgia, unspecified (principal)
CPT/HCPCS: 97035; 97110; 97161; 97164

== ENCOUNTER → 2022-12-24 | Outpatient (CLI) | payer MEDICAID, SELFPAY ==
[2022-12-24 15:10] LABS: Absolute Neutrophil Count 3.6 X10^3/uL (2.0-7.7); Basophil# 0.04 X10^3/uL; Basophil% 0.5 % (0-1); Eosinophil# 0.18 X10^3/uL; Eosinophils% 2.4 % (0-5); Hematocrit 45.1 % (40-54); Hemoglobin 14.8 g/dL (13.0-16.5); Lymphocyte % 36.1 % (19-41); Mean Corp Hgb Conc 32.8 g/dL (32-36); Mean Corpuscular Hgb 29.5 pg (27.0-32.0); Mean Platelet Vol. 10.3 fl (6.2-12.0); NRBC Flagged by Analyzer 0 % (0-5); Neutrophil # 3.63 X10^3/uL (2.7-7.7); Neutrophil % 48.6 % (47-70); Platelet Count 256 K/mm3 (150-450); RBC Distribution Width CV 14.6 % (11.6-14.6); RBC Distribution Width SD 47.8 fl (35.1-43.9); Red Blood Count 5.01 M/mm3 (4.6-6.2); White Blood Count 7.5 K/mm3 (4.4-11.0)
[2022-12-24 16:22] LABS: ALB/GLOB Ratio 0.9 RATIO (0.9-2.4); AST(SGOT) 17 U/L (15-37); Alanine Aminotransfer ALT/SGPT 45 U/L (16-61); Albumin, Serum 3.8 g/dL (3.2-5.0); Alkaline Phosphatase 60 U/L (45-117); Anion Gap 1 (5-15); BUN 15 mg/dL (7-18); BUN/Creat Ratio 15.6 RATIO (10-20); Calcium,Total 9.1 mg/dL (8.5-10.1); Chloride 107 mmol/L (98-107); Cholesterol 226 mg/dL (200); Creatinine, Serum 0.96 mg/dL (0.70-1.30); EST Glomerular Filtration Rate 85 mL/min (>60); Est Glom Filt Rate - Afr Amer 102 mL/min (>60); Globulin 4.2 g/dL (2.2-4.2); Glucose 100 mg/dL (74-106); High Density Lipoprotein 33 mg/dL; PSA,Total - Annual Screen 1.62 ng/mL (0.00-4.00); Potassium 4.3 mmol/L (3.5-5.1); Sodium Level 138 mmol/L (136-145); Thyroid Stim Hormone (TSH) 1.22 uIU/mL (0.358-3.74); Triglycerides 147 mg/dL; Very Low Density Lipoprotein 29 mg/dL (5-40)
[2022-12-26 11:07] LABS: Lyme Scn Total Ab w/Rflx Negative (Negative)
== END | disposition home or self-care (01) ==
PROVIDERS: PCP Nurse Practitioner Family; Visit Provider Nurse Practitioner Family
DX: I10 Essential (primary) hypertension (principal); W57.XXXA Bitten or stung by nonvenomous insect and other nonvenomous arthropods, initial encounter
CPT/HCPCS: 84153; 36415; 80053; 80061; 84443; 85025; 86618; G0103

== ENCOUNTER → 2023-07-15 | Outpatient (CLI) | payer MEDICAID, SELFPAY ==
[2023-07-15 16:06] LABS: Anion Gap 2 (5-15); BUN 15 mg/dL (7-18); BUN/Creat Ratio 14.6 RATIO (10-20); Calcium,Total 9.4 mg/dL (8.5-10.1); Chloride 106 mmol/L (98-107); Creatinine, Serum 1.03 mg/dL (0.70-1.30); EST Glomerular Filtration Rate 78 mL/min (>60); Est Glom Filt Rate - Afr Amer 94 mL/min (>60); Glucose 78 mg/dL (74-106); Potassium 4.5 mmol/L (3.5-5.1); Sodium Level 138 mmol/L (136-145)
[2023-07-15 16:19] LABS: Microalbumin,Random Urine 20.8 mg/L (NO RANGE EST.)
== END | disposition home or self-care (01) ==
LOC: BIMLAB 14:05
PROVIDERS: PCP Nurse Practitioner Family; Visit Provider Nurse Practitioner Family
DX: I10 Essential (primary) hypertension (principal)
CPT/HCPCS: 36415; 80048; 82043; 82570

== ENCOUNTER → 2024-04-26 | Outpatient (CLI) | payer MEDICAID, SELFPAY ==
[2024-04-26 12:50] LABS: Basophil# 0.05 X10^3/uL; Basophil% 0.5 % (0-1); Eosinophil# 0.36 X10^3/uL; Eosinophils% 3.8 % (0-5); Hematocrit 46.9 % (40-54); Hemoglobin 15.2 g/dL (13.0-16.5); Lymphocyte % 41.5 % (19-41); Mean Corp Hgb Conc 32.4 g/dL (32-36); Mean Corpuscular Hgb 28.6 pg (27.0-32.0); Mean Corpuscular Volume 88.3 fL (80-94); Mean Platelet Vol. 10.1 fl (6.2-12.0); Monocyte# 1.08 X10^3/uL; Monocyte% 11.5 % (0-10); NRBC Flagged by Analyzer 0 % (0-5); Neutrophil # 3.96 X10^3/uL (2.7-7.7); Neutrophil % 42.3 % (47-70); Platelet Count 277 K/mm3 (150-450); RBC Distribution Width CV 14.2 % (11.6-14.6); RBC Distribution Width SD 45.8 fl (35.1-43.9); Red Blood Count 5.31 M/mm3 (4.6-6.2); White Blood Count 9.4 K/mm3 (4.4-11.0)
[2024-04-26 13:08] LABS: ALB/GLOB Ratio 0.8 RATIO (0.9-2.4); AST(SGOT) 19 U/L (15-37); Alanine Aminotransfer ALT/SGPT 39 U/L (16-61); Albumin, Serum 3.8 g/dL (3.2-5.0); Alkaline Phosphatase 64 U/L (45-117); Anion Gap 5 (5-15); BUN 16 mg/dL (7-18); Calcium,Total 9.4 mg/dL (8.5-10.1); Chloride 106 mmol/L (98-107); Cholesterol 210 mg/dL (200); EST Glomerular Filtration Rate 80 mL/min (>60); Est Glom Filt Rate - Afr Amer 97 mL/min (>60); Globulin 4.8 g/dL (2.2-4.2); Glucose 126 mg/dL (74-106); High Density Lipoprotein 36 mg/dL; Potassium 4.6 mmol/L (3.5-5.1); Protein, Total 8.6 g/dL (6.4-8.2); Sodium Level 136 mmol/L (136-145); Triglycerides 161 mg/dL; Very Low Density Lipoprotein 32 mg/dL (5-40)
[2024-04-26 13:16] LABS: Microalbumin,Random Urine 10.7 mg/L (NO RANGE EST.)
[2024-04-29 08:07] LABS: PSA, Free 0.34 ng/mL
== END | disposition home or self-care (01) ==
LOC: VSLAB 10:00
PROVIDERS: PCP Nurse Practitioner Family; Visit Provider Family Medicine
DX: E11.9 Type 2 diabetes mellitus without complications (principal); I10 Essential (primary) hypertension; Z12.5 Encounter for screening for malignant neoplasm of prostate
CPT/HCPCS: 84154; 36415; 80053; 80061; 82043; 83036; 84153; 84443; 85025

== ENCOUNTER → 2024-12-17 | Outpatient (CLI) | payer MEDICAID, SELFPAY ==
[2024-12-19 08:08] LABS: Lyme Scn Total Ab w/Rflx Negative (Negative)
== END | disposition home or self-care (01) ==
LOC: LAB 13:44
PROVIDERS: PCP Nurse Practitioner Family; Visit Provider Nurse Practitioner Family
DX: R52 Pain, unspecified (principal)
CPT/HCPCS: 36415; 86618

== ENCOUNTER 2025-02-27 14:09 | Emergency (ER) | payer MEDICAID, SELFPAY ==
[2025-02-27 14:10] VITALS: BP 181/101; PULSE 85; RESP 16; TEMP 36.3; O2SAT 100; BMI 32.1
--- NOTE | 2025-02-27 14:30 | CT_ITS ---
PROCEDURE: ABDOMEN/PELVIS W IV CONT ONLY 02/27/2025 REASON FOR EXAM: COLITIS TECHNIQUE: Procedure Code: [id number] Modality: CT Procedure: ABDOMEN/PELVIS W IV CONT ONLY Coronal and Sagittal reconstruction series were provided. CONTRAST: Isovue-300 VOLUME: 96 mL One or more dose reduction techniques were used (e.g., Automated exposure control, adjustment of the mA and/or kV according to patient size, use of iterative reconstruction technique. RADIATION DOSE SUMMARY: CTDlvol: 19.95, 22.04 mGy DLP: 1163 mGycm COMPARISON: 07/17/2021 FINDINGS: LUNG BASES: No basilar airspace consolidation or pleural effusion. Minimal dependent atelectasis bilaterally. LIVER: Unremarkable. GALLBLADDER: Small calcified stone. BILE DUCTS: No ductal dilation. PANCREAS: Unremarkable. SPLEEN: Unremarkable. ADRENAL GLANDS: Unremarkable right adrenal gland. No change in nodular thickening of the left adrenal gland. KIDNEYS: The kidneys enhance symmetrically. Left renal cortical scarring. No hydronephrosis or hydroureter. Interval enlargement of a medial right renal cyst, now 2.2 cm, previously 0.6 cm. STOMACH AND BOWEL: No obstruction or perforation. Colonic diverticulosis. Wall thickening of the proximal sigmoid colon, mild adjacent stranding. Moderate colonic stool. APPENDIX: Normal-appearing appendix. No CT evidence for appendicitis. RETRO/PERITONEUM: No free fluid. No free air. LYMPH NODES: No lymphadenopathy. PELVIC ORGANS: Unremarkable as visualized. VASCULATURE: No aortic aneurysm. Minimal scattered calcified atherosclerosis. 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 ABDOMINAL WALL AND SOFT TISSUES: Small fat-containing left periumbilical and bilateral inguinal hernias. BONES: No fracture or suspicious osseous abnormality. Degenerative changes of the spine. CT/Abdomen/Pelvis W IV Cont ONLY IMPRESSION: 1. Thickened proximal sigmoid colon with mild adjacent stranding, suggesting a cute colitis or diverticulitis. No signs of perforation. 2. Cholelithiasis without signs of acute cholecystitis. 3. 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 Reading Location: [facility]
[2025-02-27] MEDS: 0.9% Normal Saline (1000mL) 1,000 ML 999 ML IV (14:33)
--- NOTE | 2025-02-27 14:35 | EDS_ITS ---
HPI HPI - GI History of Present Illness Chief Complaint: Abd Pain Informant: patient Narrative Narrative: 64-year-old male presenting to the emergency room with abdominal discomfort and cramping as well as diarrhea of 1 week duration. Patient states that about 1 week ago his abdomen swelled up and he began to experience diarrhea. He describes the diarrhea as brown and watery. He thought perhaps he had caught an illness that would resolve but it has not. He notes continued cramping. He denies fever. He denies any recent trips bad food antibiotics. He notes he started Trulicity about 7 weeks ago. He did not have any symptoms until 1 week ago. He states he had a colonoscopy several years ago that showed polyps. He notes he feels that he has been urinating more frequently than normal. Does not check blood sugars. He denies any recent rashes. He has not seen his doctor for this. [facility] Medical History Prediabetes Concussion Trauma Fall from ladder Chronic thoracic back pain Right knee pain Tobacco abuse Wears glasses Marijuana use Back pain Smoker History of echocardiogram Chronic low back pain Encounter for preventative adult health care examination Vitamin deficiency Frequent headaches Meningitis spinal Hammer toe of right foot History of drug abuse Bone fracture Hypertension Home Medications ?Medication ?Instructions ?Recorded ?Last Taken ?Type cholecalciferol (vitamin D3) 50 50 mcg PO DAILY supple ment #90 caps 02/05/22 02/26/25 Rx mcg (2,000 unit) capsule amlodipine 10 mg tablet See Rx Instructions .Route 0 09/10/22 02/27/25 Rx .COMPLEX #90 tabs gabapentin 300 mg capsule 300 mg PO BID pain #180 caps 10/04/22 02/26/25 Rx acetaminophen 500 mg capsule 1,000 mg PO Q6H PRN fever or pain 02/27/25 02/27/25 History amoxicillin 875 mg-potassium 875 mg PO Q12H #20 TABLET S 02/27/25 Unknown Rx clavulanate 125 mg tablet dulaglutide 0.75 mg/0.5 mL 0.75 mg subcut QWEEK 02/20/25 History subcutaneous pen injector (Trulicity) hydrocodone-acetaminophen 5-325mg 1 tab PO Q6H PRN sravanthi n 3 days #12 02/27/25 Unknown Rx 5mg-325mg tabs lisinopril 20 mg tablet 20 mg PO DAILY 02/27/25/09/26 History meloxicam 7.5 mg tablet 7.5 mg PO DAILY 02/27/25 History Allergy/AdvReac Type Severity Reaction Status Date / Time No Known Allergies Allergy Verified 02/27/25 14:11 Family History Mother Depression Colon cancer Grandfather Myocardial infarction Surgical History History of cardiac catheterization Social History household members: family Smoking Status: Current every day smoker tobacco type: cigarettes alcohol intake: never substance use type: former substance user and painkillers what type of physical activity do you participate in: other details: active lifestyle ROS ROS ED Constitutional Constitutional ED: Denies chills, fever(s) or weight loss Eyes Eyes: Denies blurry vision, change in vision or diplopia ENT ENT ED: Denies ear pain, rhinorrhea or sore throat Cardiovascular Cardiovascular: Denies chest pain, orthopnea, palpitations or racing heartbeat Respiratory/Chest Respiratory/Chest: Denies cough, dyspnea or orthopnea Gastrointestinal Gastrointestinal: Reports abdominal pain, diarrhea, nausea and other Details: Loss of appetite ; Denies vomiting Genitourinary Genitourinary ED: Reports urinary frequency; Denies dysuria or hematuria Musculoskeletal Musculoskeletal: Denies arthralgias or myalgias Integumentary Denies abscess or rash Neurologic Neurologic: Denies headache(s) or weakness Psychiatric Psychiatric: Denies anxiety, depression, suicidal ideation or suicidal thoughts Endocrine Endocrinology: Denies polydipsia, polyphagia or polyuria Allergic/Immunologic Allergic/Immunologic ED: Denies mouth swelling, tongue swelling or urticaria EXAM Physical Exam Const Vital Signs: 02/27/25 14:10 Temperature 97.4 F L Temperature Source Temporal Pulse Rate 85 Respiratory Rate 16 Blood Pressure 181/101 H Blood Pressure Mean 127 Pulse Ox 100 Oxygen Delivery Method Room Air Positive well nourished and well developed General Appearance ED: well developed HEENT Reports normocephalic, head/scalp atraumatic and moist mucous membranes Eyes PERRL and EOMs intact bilaterally Neck no lymphadenopathy, supple and no JVD Resp normal respiratory effort and clear to auscultation bilaterally Cardio regular rate, regular rhythm and no murmurs GI non-distended GI Narrative: Patient appears uncomfortable when I palpate around the abdomen. I would not characterize it as distended. There is no tympany. There is no guarding or rebound. Auscultation: normoactive bowel sounds Palpation: soft Back/Spine no CVA tenderness and normal ROM Extremity normal to inspection General Extremety ED: Negative for edema General Extremity: Negative for edema Neuro oriented x3 and CN's II-XII intact bilaterally Sensorium / Orientation: alert Motor Exam: strength 5/5 throughout Psych mental status grossly normal Mood & Affect: Negative for depressed or tearful Skin no rashes or lesions noted and no wounds MDM MDM MDM Narrative Medical decision making narrative: Differential diagnosis would include but not limited to colitis diverticulitis obstruction dehydration electrolyte abnormalities infectious diarrhea acute kidney injury anemia malignancy Patient's white count is 9.6 39.7 neutrophils 46.4 lymphocytes 10.3 monocytes. BMP liver and lipase are normal. CT of the abdomen pelvis demonstrates sigmoid inflammatory changes and colonic diverticulosis. There does appear to be formed stool in the right hemicolon. He is unable to produce a bowel movement. He was unable to urinate at this current time. I do wonder if the patient could have some component of medication reaction with Trulicity with diarrhea however this could all be diverticulitis. I think is reasonable to start him on Augmentin. It has been about 5 years since his colonoscopy. I do recommend PCP follow-up in 1 to 2 weeks. He is also noted to have hypertension 181/101 which she does not appear symptomatic from. We did ask him to follow-up with his blood pressure with his doctor as well. History & Record Review Discussion w/independent historian: Patient Additional record(s) reviewed:: Prior ED visit and Prior labs Lab Data Attestation: I reviewed the patient's lab results. Labs: Laboratory Results - last 24 hr 02/27/25 14:21 WBC 9.6 RBC 5.21 Hgb 15.1 Hct 45.5 MCV 87.3 MCH 29.0 MCHC 33.2 RDW Std Deviation 44.8 H RDW Coeff of Ervin 14.0 Plt Count 258 MPV 10.6 Immature Gran % (Auto) 0.300 Neut % (Auto) 39.7 L Lymph % (Auto) 46.4 H Dickson % (Auto) 10.3 H Eos % (Auto) 2.9 Baso % (Auto) 0.4 Absolute Neuts (auto) 3.8 Absolute Lymphs (auto) 4.45 Nucleated RBC % 0 Sodium 139 Potassium 4.0 Chloride 105 Carbon Dioxide 22.2 Anion Gap 12 BUN 12 Creatinine 0.96 Estim Creat Clear Calc 95.24 Est GFR (MDRD) Non-Af 89 BUN/Creatinine Ratio 12.3 Glucose 93 Calcium 9.5 Total Bilirubin 0.59 Direct Bilirubin 0.21 AST 28 ALT 39 Alkaline Phosphatase 55 Total Protein 7.7 Albumin 4.4 Globulin 3.3 Lipase 44 Radiography Diagnostic Testing: Clinical Impression(s) from Imaging Studies Abdomen/Pelvis CT 02/27/25 14:30 IMPRESSION: 1. Thickened proximal sigmoid colon with mild adjacent stranding, suggesting acute colitis or diverticulitis. No signs of perforation. 2. Cholelithiasis without signs of acute cholecystitis. 3. 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 Reading Location: [facility] Discharge Plan Triage Chief Complaint: Abd Pain ED Provider: Estuardo Funez Dx/Rx/DC Orders Clinical Impression: Diarrhea, Abdominal cramping, Diverticulosis, Diverticulitis Instructions: Diverticulitis Dc Prescriptions: New hydrocodone-acetaminophen 5-325 mg tablet 1 tab PO Q6H PRN (Reason: pain) 3 Days Qty: 12 0RF amoxicillin-pot clavulanate 875-125 mg tablet 875 mg PO Q12H Qty: 20 0RF No Action cholecalciferol (vitamin D3) 50 mcg (2,000 unit) capsule 50 mcg PO DAILY Qty: 90 3RF meloxicam 7.5 mg tablet 7.5 mg PO DAILY Trulicity 0.75 mg/0.5 mL pen injector 0.75 mg subcut QWEEK lisinopril 20 mg tablet 20 mg PO DAILY acetaminophen 500 mg capsule 1,000 mg PO Q6H PRN (Reason: fever or pain) amlodipine 10 mg tablet See Rx Instructions .ROUTE .COMPLEX Qty: 90 3RF Dose Instruction: 1 TABLET BY MOUTH ONCE DAILY AT BEDTIME Rx Instructions: 1 TABLET BY MOUTH ONCE DAILY AT BEDTIME gabapentin 300 mg capsule 300 mg PO BID Qty: 180 0RF Primary Care Provider: Erich Concepcion Referrals: Erich Concepcion, [facility] [Primary Care Provider, Family Practice] - 1-2 Weeks Print Language: [place] Citizen Disposition Disposition: Home, Self Care
[2025-02-27 14:42] LABS: Hematocrit 45.5 % (40-54); Hemoglobin 15.1 g/dL (13.0-16.5); Immature Granulocytes Count 0.030 X10^3/uL (0.0-0.0); Mean Corp Hgb Conc 33.2 g/dL (32-36); Mean Corpuscular Volume 87.3 fL (80-94); Mean Platelet Vol. 10.6 fl (6.2-12.0); NRBC Flagged by Analyzer 0 % (0-5); Platelet Count 258 K/mm3 (150-450); RBC Distribution Width CV 14.0 % (11.6-14.6); RBC Distribution Width SD 44.8 fl (35.1-43.9); Red Blood Count 5.21 M/mm3 (4.6-6.2); White Blood Count 9.6 K/mm3 (4.4-11.0)
[2025-02-27 15:30] LABS: AST(SGOT) 28 U/L (<=37); Alanine Aminotransfer ALT/SGPT 39 U/L (<=46); Albumin, Serum 4.4 g/dL (3.4-4.8); Alkaline Phosphatase 55 U/L (40-129); Anion Gap 12 (5-15); BUN 12 mg/dL (4-19); BUN/Creat Ratio 12.3 RATIO (10-20); Bilirubin, Direct 0.21 mg/dL (0.00-0.30); Calcium,Total 9.5 mg/dL (7.6-11.0); Carbon Dioxide 22.2 mmol/L (21.0-32.0); Chloride 105 mmol/L (98-108); Estimated Creatinine Clearance 95.24 ml/min (50-250); Globulin 3.3 g/dL (2.2-4.2); Glucose 93 mg/dL (70-99); Lipase 44 U/L (13-75); Potassium 4.0 mmol/L (3.3-5.1)
[2025-02-27 15:49] VITALS: BP 149/97; PULSE 77; RESP 16; TEMP 36.3; O2SAT 100
== END 2025-02-27 15:49 | disposition home or self-care (01) ==
PROVIDERS: Emergency Provider Emergency Medicine; PCP Nurse Practitioner Family; Visit Provider Emergency Medicine
DX: R19.7 Diarrhea, unspecified (principal); K57.92 Diverticulitis of intestine, part unspecified, without perforation or abscess without bleeding; Z82.49 Family history of ischemic heart disease and other diseases of the circulatory system; F17.210 Nicotine dependence, cigarettes, uncomplicated; I10 Essential (primary) hypertension; K57.30 Diverticulosis of large intestine without perforation or abscess without bleeding; R10.9 Unspecified abdominal pain
CPT/HCPCS: 74177; 80048; 80076; 83690; 85025; 96361; 96374; 99283; Q9967; J2405

== ENCOUNTER → 2025-03-08 | Outpatient (CLI) | payer MEDICAID, SELFPAY ==
--- NOTE | 2025-03-08 07:52 | CT_ITS ---
PROCEDURE: ABDOMEN/PELVIS WITH CONTRAST 03/08/2025 REASON FOR EXAM: DIVERTICULITIS OF INTESTINE, PART UNSPECIFIED, WITHOUT PERFORATIO TECHNIQUE: Procedure Code: CTABDPELW Modality: CT Procedure: ABDOMEN/PELVIS WITH CONTRAST Coronal and Sagittal reconstruction series were provided. CONTRAST: Isovue-300 VOLUME: 100 mL One or more dose reduction techniques were used (e.g., Automated exposure control, adjustment of the mA and/or kV according to patient size, use of iterative reconstruction technique. RADIATION DOSE SUMMARY: CTDlvol: 14.33 mGy DLP: 1203.71 mGycm COMPARISON: February 27, 2025. FINDINGS: Lung bases: Lung bases are clear. Liver: Diffuse fatty infiltration. Gallbladder: Solitary gallstone. Spleen: Normal size. Pancreas: Normal size without evidence of mass surrounding inflammation or ductal dilation. Adrenals: Stable nodular thickening of the left adrenal gland suggestive of a small adenoma. This measures 12.2 mm. Kidneys: Stable calcified right renal artery aneurysm measuring 1.1 cm. Stable right renal cyst. Bladder: Unremarkable Bowel: Multiple sigmoid diverticulosis. Mild degree of increased markings in the surrounding peritoneal fat suggestive of mild degree of diverticulitis. No focal collection of fluid or abscess is seen. Appendix: The appendix is not identified. There is no inflammatory process identified in the right lower quadrant to suggest appendicitis. Lymph nodes: Unremarkable. Vasculature: Mild diffuse atherosclerotic calcifications are noted. Peritoneum / Retroperitoneum: Unremarkable Bones: Mild degree of degenerative changes. CT/Abdomen/Pelvis WITH Contrast IMPRESSION: Fatty infiltration of the liver. Solitary gallstone. Stable small left adrenal gland adenoma. Stable calcified right renal artery aneurysm as well as a small right renal cys t. Sigmoid diverticulosis and mild degree of sigmoid diverticulitis. Reading Location: [place] [id number]
--- OUTSIDE RECORDS SUMMARY | 2025-03-08 08:11 | XMS RPT_ITS | CCD ---
Author Organization [facility] Care Team Providers Care Manager Of Broadcast Content Name Role Phone Concepcion KENNEL TECHNICIAN, KENNEL TECHNICIAN-C Erich Primary Care Provider Concepcion KENNEL TECHNICIAN, KENNEL TECHNICIAN-C Erich Attending Provider Concepcion KENNEL TECHNICIAN, KENNEL TECHNICIAN-C Erich Referring Provider Dr. Danny Patel Emergency Provider Dr. Rupesh Brantley Admit Provider Dr. Rupesh Brantley Attending Provider Dr. Rupesh Brantley Other Provider Dr. Jayden Schafer Attending Provider Dr. Jayden Schafer Other Provider Dr. Flip Murphy Attending Provider Unavailable Dr. Flip Murphy Other Provider Unavailable Dr. Refugio Dotson Other Provider Dr. Refugio Dotson Attending Provider Concepcion KENNEL TECHNICIAN, KENNEL TECHNICIAN-C Erich Primary Care Provider Concepcion KENNEL TECHNICIAN, KENNEL TECHNICIAN-C Erich Referring Provider Dr. Refugio Dotson Attending Provider Concepcion KENNEL TECHNICIAN, KENNEL TECHNICIAN-C Erich Attending Provider Dr. Oli Forbes Attending Provider Concepcion KENNEL TECHNICIAN, KENNEL TECHNICIAN-C Erich Primary Care Provider Concepcion KENNEL TECHNICIAN, KENNEL TECHNICIAN-C Erich Attending Provider Concepcion KENNEL TECHNICIAN, KENNEL TECHNICIAN-C Erich Referring Provider Concepcion VSC, Erich Primary Care Unavailable Jayde Sarah Attending Unavailable Concepcion VSC, Erich Primary Care Unavailable Hailey Lowry Attending Unavailable Erich Mae Primary Care Physician Jayde Felix Attending Physician Medications Current Medications Medication Drug Class(es) Dates Sig (Normalized) Sig (Original) [id number] actuat albuterol 0.09 mg/actuat metered dose inhaler (4 sources) beta2-Adrenergic Agonist Start: 01-01-2022 Start: 01-01-2022 take 1 puff(s) by in halation every six hours Albuterol Sulfate (Proair Hfa) 90 mcg/actuation HFA aerosol inhaler Active 1 - 2 PUFF INHALATION EVERY 6 HOURS 8.5 January 01, 2022 12:00am hydroCHLOROthiazide 12.5 mg / lisinopril 20 mg oral tablet (6 sources) Thiazide Diuretic, Angiotensin Converting Enzyme Inhibitor Start: 02-05-2022 End: 08-10-2022 take 1 tablet by mouth once daily Start: 02-05-2022 End: 08-10-2022 take 1 tablet by mouth once daily Lisinopril-Hydrochlorothiazide Active 0 .ROUTE .COMPLEX 90 August 10, 2022 10:36am TAKE 1 TABLET BY MOUTH EVERY DAY lisinopril 20 mg oral tablet (20 sources) Angiotensin Converting Enzyme Inhibitor Start: 07-13-2022 End: 09-13-2022 take 1 tablet by mouth at bedtime Start: 06-30-2021 End: 02-05-2022 take 1 tablet by mouth at bedtime Lisinopril 20 mg tablet Discontinued 20 mg PO AT BEDTIME 90 2 September 25, 2021 9:18am February 05, 2022 10:04am bp Start: 10-01-2020 End: 06-30-2021 take 1 tablet by mouth at bedtime Lisinopril 10 mg tablet Discontinued 10 mg PO AT BEDTIME December 05, 2020 9:07am June 30, 2021 8:26am Completed/Discontinued Medications Medication Drug Class(es) Dates Sig (Normalized) Sig (Original) acetaminophen 325 mg / HYDROcodone bitartrate 5 mg oral tablet (4 sources) Opioid Agonist Start: 07-28-2021 End: 08-04-2021 Hydrocodone-Acetami nophen 5-325 mg tablet Discontinued 1 {tbl} PO TWICE A DAY as needed for pain 14 7 0 July 28, 2021 August 03, 2021 12:00am August 04, 2021 12:04am Fracture of multiple ribs Multiple fractures of ribs, left side, initial encounter for closed fracture Start: 07-28-2021 End: 08-04-2021 take 1 tablet by mouth twice daily Hydrocodone-Acetaminophen Discontinued 1 TABLET PO TWICE A DAY 14 7 July 28, 2021 August 04, 2021 12:04am acetaminophen 325 mg / oxyCODONE hydrochloride 5 mg oral tablet (12 sources) Opioid Agonist Start: 08-21-2021 End: 09-17-2021 Oxycodone-Acetaminophen 5-32 5 mg tablet Discontinued 1 {tbl} PO EVERY 6 HOURS as needed for pain 60 15 0 September 02, 2021 September 16, 2021 12:00am September 17, 2021 12:07am Fracture of multiple ribs Fracture of multiple transverse processes Multiple fractures of ribs, left side, initial encounter for closed fracture Start: 08-21-2021 End: 09-17-2021 take 1 tablet by mouth every six hours Oxycodone-Acetaminophen Discontinued 1 TABLET PO EVERY 6 HOURS 60 15 September 02, 2021 September 17, 2021 12:07am Start: 08-05-2021 End: 08-20-2021 Oxycodone-Acetaminophen 7.5- 325 mg tablet Discontinued 1 {tbl} PO EVERY 6 HOURS as needed for pain 60 15 0 August 05, 2021 August 19, 2021 12:00am August 20, 2021 12:06am Fracture of multiple ribs Fracture of multiple transverse processes Multiple fractures of ribs, left side, initial encounter for closed fracture Start: 08-05-2021 End: 08-20-2021 take 1 tablet by mouth every six hours Oxycodone-Acetaminophen Discontinued 1 TABLET PO EVERY 6 HOURS 60 15 August 05, 2021 August 20, 2021 12:06am amLODIPine 10 mg oral tablet (20 sources) Dihydropyridine Calcium Channel Kaitlin Start: 06-30-2021 End: 09-10-2022 take 1 tablet by mouth at bedtime Amlodipine 10 mg tablet Discontinued 10 mg PO AT BEDTIME 90 2 September 25, 2021 9:18am September 10, 2022 8:33am bp Start: 10-17-2020 End: 06-30-2021 take 2 tablets by mouth at bedtime Amlodipine 5 mg tablet Discontinued 10 mg PO AT BEDTIME December 05, 2020 9:07am June 30, 2021 8:26am Start: 10-17-2020 End: 06-30-2021 take 10 mg by mouth at bedtime Amlodipine Discontinued 10 MG PO AT BEDTIME December 05, 2020 9:07am June 30, 2021 8:26am Start: 10-01-2020 End: 10-17-2020 take 1 tablet by mouth once daily Amlodipine 5 mg tablet Discontinued 5 mg PO DAILY 90 October 01, 2020 1:24pm October 17, 2020 3:52pm azithromycin 500 mg oral tablet (5 sources) Macrolide Antimicrobial Start: 07-22-2021 End: 08-05-2021 take 2 tablets by mouth once daily Azithromycin 500 mg tablet Discontinued 500 mg PO DAILY 2 2 0 July 22, 2021 12:00am August 05, 2021 8:24am start on day 2 of therapy cefdinir 300 mg oral capsule (5 sources) Cephalosporin Antibacterial Start: 07-22-2021 End: 08-05-2021 take 1 capsule by mouth twice daily Cefdinir 300 mg capsule Discontinued 300 mg PO TWICE A DAY 6 0 July 22, 2021 12:00am August 05, 2021 8:24am cholecalciferol 0.05 mg oral capsule (20 sources) Vitamin D Start: 10-28-2020 End: 02-05-2022 take 1 capsule by mouth once daily Cholecalciferol (Vitamin D3) 50 mcg (2,000 unit) capsule Discontinued 50 ug PO DAILY 90 April 22, 2021 9:31am July 17, 2021 7:03pm gabapentin 300 mg oral capsule (20 sources) Anti-epileptic Agent Start: 01-01-2022 End: 10-04-2022 take 1 capsule by mouth twice daily Gabapentin 300 mg capsule Discontinued 300 mg PO TWICE A DAY 180 March 01, 2022 10:56am October 04, 2022 9:59am pain Start: 10-28-2020 End: 01-01-2022 take 1 capsule by mouth twice daily Gabapentin 100 mg capsule Discontinued 100 mg PO TWICE A DAY 180 1 December 22, 2021 9:45am January 01, 2022 1:14pm pain oxyCODONE hydrochloride 5 mg oral tablet (5 sources) Opioid Agonist Start: 07-22-2021 End: 08-05-2021 take 1 tablet by mouth every eight hours as needed for pain Oxycodone 5 mg tablet Discontinued 5 mg PO Q8H as needed for pain 15 5 0 July 22, 2021 August 05, 2021 8:25am Traumatic injury Fall from ladder Fracture of multiple ribs Fracture of multiple transverse processes Injury, unspecified, initial encounter Fall on and from ladder, initial encounter Multiple fractures of ribs, left side, initial encounter for closed fracture predniSONE 10 mg oral tablet (6 sources) Start: 02-11-2021 End: 06-30-2021 Prednisone 10 mg tablet Discontinued 0 PO daily 30 0 February 11, 2021 1:00am June 30, 2021 8:10am 4 tabs for 3 days, then 3 tabs for 3 days, then 2 tabs for 3 days, then 1 tab for 3 days PO QDAY; administer with food or milk traMADol hydrochloride 50 mg oral tablet (6 sources) Opioid Agonist Start: 02-11-2021 End: 06-30-2021 take 1 tablet by mouth every twelve hours as needed for pain Tramadol 50 mg tablet Discontinued 50 mg PO Q12H as needed for pain 14 0 February 11, 2021 1:00am June 30, 2021 8:11am Problems Problem Classification Problem Date Documented Date Episodic/Chronic Acquired foot deformities (6 sources) Hammer toe; Translations: [Other hammer toe(s) (acquired), right foot] 10-01-2020 Chronic Comment on above: corrective surgery i n 2004 Diabetes mellitus without complication (1 source) Type 2 diabetes mellitus without complications; Translations: [Type 2 diabetes mellitus without complications] Onset: 05-16-2024 Chronic Diabetes mellitus without complication (7 sources) Increased glucose level; Translations: [Other abnormal glucose] 07-13-2022 Episodic E Codes: Fall (4 sources) Fall from ladder; Translations: [Fall on and from ladder, initial encounter] Episodic Essential hypertension (9 sources) Hypertensive disorder; Translations: [Essential (primary) hypertension] Chronic Headache; including migraine (6 sources) Frequent headache; Translations: [Frequent headaches] 10-01-2020 Episodic Intracranial injury (2 sources) Concussion injury of body structure; Translations: [Concussion with loss of consciousness of unspecified duration, initial encounter] Episodic Meningitis (except that caused by tuberculosis or sexually transmitted disease) (6 sources) Meningitis; Translations: [Meningitis, unspecified] 10-01-2020 Episodic Nutritional deficiencies (6 sources) Vitamin deficiency; Translations: [Vitamin deficiency, unspecified] 10-01-2020 Episodic Other fractures (6 sources) Fracture of multiple ribs ; Translations: [Multiple fractures of ribs, unspecified side, initial encounter for closed fracture] 07-18-2021 Episodic Other fractures (9 sources) Fracture of transverse process of vertebra; Translations: [Fracture of multiple transverse processes] Episodic Other fractures (3 sources) Multiple fractures of ribs, unspecified side, initial encounter for closed fracture; Translations: [Closed fracture of multiple ribs, unspecified] Episodic Other injuries and conditions due to external causes (6 sources) Fracture of bone; Translations: [Other injury of unspecified body region, initial encounter] 10-01-2020 Episodic Other injuries and conditions due to external causes (1 source) Traumatic injury; Translations: [Injury, unspecified, initial encounter] Episodic Other injuries and conditions due to external causes (1 source) Injury, unspecified, initial encounter; Translations: [Unspecified site injury] Episodic Other lower respiratory disease (1 source) Dyspnea, unspecified; Translations: [Other respiratory abnormalities] Episodic Other non-traumatic joint disorders (6 sources) Pain in right knee; Translations: [Right knee pain] 02-11-2021 Episodic Other screening for suspected conditions (not mental disorders or infectious disease) (6 sources) Patient encounter status; Translations: [Encounter for screening for malignant neoplasm of colon] 12-09-2020 Episodic Residual codes; unclassified (6 sources) Tobacco user; Translations: [Tobacco use] 12-30-2020 Episodic Residual codes; unclassified (6 sources) H/O Spinal surgery; Translations: [Other specified postprocedural states] 08-05-2021 Episodic Residual codes; unclassified (4 sources) Tobacco use; Translations: [Tobacco use disorder] Episodic Residual codes; unclassified (4 sources) Pain; Translations: [Pain, unspecified] 08-05-2021 Episodic Residual codes; unclassified (1 source) Pain, unspecified; Translations: [Pain, unspecified] Onset: 12-25-2024 Episodic Spondylosis; intervertebral disc disorders; other back problems (10 sources) Other intervertebral disc displacement, lumbar region; Translations: [Herniation of intervertebral disc of lumbar spine] Chronic Spondylosis; intervertebral disc disorders; other back problems (17 sources) Chronic thoracic back pain; Translations: [Pain in thoracic spine] Episodic Substance-related disorders (6 sources) History of drug abuse; Translations: [Other psychoactive substance abuse, in remission] 10-01-2020 Chronic Results Test Name Value Interpretation Reference Range Facility Lyme Screen W/Reflex WBon LYME SCREEN Ab Negative Normal Negative [facility] Comment on above: Result Comment: Lyme antibodies not detected. Reflex testing is not indicated. No laboratory evidence of infection with B. burgdorferi (Lyme disease). Negative results may occur in patients recently infected (less than or equal to 14 days) with B. burgdorferi. If recent infection is suspected, repeat testing on a new sample collected in 7 to 14 days is recommended. Performed at: [facility] [id number] Manager Of Investigations: Hamlet Bowers PhD, Phone: [phone] Performed By: #### L 7000.5302 #### [facility] [address] [place], [address] PSA Total+%Freeon 04-29-2024 PSA, FREE 0.34 ng/mL Normal N/A [facility] Comment on above: Result Comment: Sofie CHAN methodology. Performed By: #### L 500.4050, L502.0500, L3110.0500, L501.9985, L100.0100, L501.9520, L500.4100 #### [facility] [address] [place], [address] PSA, FREE % 17.0 Normal . [facility] Comment on above: Result Comment: The table below lists the probability of prostate cancer for men with non-suspicious CATRACHITO results and total PSA between 4 and 10 ng/mL, by patient age (Ty et al, CECILY 1998, 279:1542). % Free PSA 50-64 yr 65-75 yr 0.00-10.00% 56% 55% 10.01-15.00% 24% 35% 15.01-20.00% 17% 23% 20.01-25.00% 10% 20% >25.00% 5% 9% Please note: Ty et al did not make specific recommendations regarding the use of percent free PSA for any other population of men. Performed at: [address] [id number] Manager Of Investigations: Hamlet Bowers PhD, Phone: [phone] Performed By: #### L 500.4050, L502.0500, L3110.0500, L501.9985, L100.0100, L501.9520, L500.4100 #### [facility] [address] [place], [address] PSA, TOTAL ULTR 2.000 ng/mL Normal 0.000-4.000 [facility] Comment on above: Result Comment: Sofie stone ECLIA methodology. According to the [place] [employer], Serum PSA should decrease and remain at undetectable levels after radical prostatectomy. The AUA defines biochemical recurrence as an initial PSA value 0.200 ng/mL or greater followed by a subsequent confirmatory PSA value 0.200 ng/mL or greater. Values obtained with different assay methods or kits cannot be used interchangeably. Results cannot be interpreted as absolute evidence of the presence or absence of malignant disease. Performed By: #### L 500.4050, L502.0500, L3110.0500, L501.9985, L100.0100, L501.9520, L500.4100 #### [facility] [address] [place], [address] CBC W/Diff, Automatedon 04-05 Absolute Lymph 3.90 X10 3/uL Normal 0.83-4.51 [facility] Comment on above: Performed By: #### L 500.4050, L502.0500, L3110.0500, L501.9985, L100.0100, L501.9520, L500.4100 #### [facility] [address] [place], [address] Absolute Neut 4.0 X10 3/uL Normal 2.0-7.7 [facility] Comment on above: Performed By: #### L 500.4050, L502.0500, L3110.0500, L501.9985, L100.0100, L501.9520, L500.4100 #### [facility] [address] [place], [address] Basophils/100 WBC (Bld) 0.5 % Normal 0-1 [facility] Comment on above: Performed By: #### L 500.4050, L502.0500, L3110.0500, L501.9985, L100.0100, L501.9520, L500.4100 #### [facility] [address] [place], [address] Eosinophils/100 WBC (Bld) 3.8 % Normal 0-5 [facility] Comment on above: Performed By: #### L 500.4050, L502.0500, L3110.0500, L501.9985, L100.0100, L501.9520, L500.4100 #### [facility] [address] [place], [address] Erythrocyte distribution width (RBC) [Ratio] 14.2 % Normal 11.6-14.6 [facility] Comment on above: Performed By: #### L 500.4050, L502.0500, L3110.0500, L501.9985, L100.0100, L501.9520, L500.4100 #### [facility] [address] [place], [address] Hematocrit (Bld) [Volume fraction] 46.9 % Normal 40-54 [facility] Comment on above: Performed By: #### L 500.4050, L502.0500, L3110.0500, L501.9985, L100.0100, L501.9520, L500.4100 #### [facility] [address] [place], [address] Hemoglobin (Bld) [Mass/Vol] 15.2 g/dL Normal 13.0-16.5 [facility] Comment on above: Performed By: #### L 500.4050, L502.0500, L3110.0500, L501.9985, L100.0100, L501.9520, L500.4100 #### [facility] [address] [place], [address] IG% 0.400 Normal 0.0-0.9 [facility] Comment on above: Result Comment: IG% - Immature Granulocytes (promyelocytes, myelocytes and metamyelocytes) > 1% indicates that a LEFT SHIFT is Present. Performed By: #### L 500.4050, L502.0500, L3110.0500, L501.9985, L100.0100, L501.9520, L500.4100 #### [facility] [address] [place], [address] Lymphocytes/100 WBC (Bld) 41.5 % High 19-41 [facility] Comment on above: Performed By: #### L 500.4050, L502.0500, L3110.0500, L501.9985, L100.0100, L501.9520, L500.4100 #### [facility] [address] [place], [address] MCH (RBC) [Entitic mass] 28.6 pg Normal 27.0-32.0 [facility] Comment on above: Performed By: #### L 500.4050, L502.0500, L3110.0500, L501.9985, L100.0100, L501.9520, L500.4100 #### [facility] [address] [place], [address] MCHC (RBC) [Mass/Vol] 32.4 g/dL Normal 32-36 [facility] Comment on above: Performed By: #### L 500.4050, L502.0500, L3110.0500, L501.9985, L100.0100, L501.9520, L500.4100 #### [facility] [address] [place], [address] MCV (RBC) [Entitic vol] 88.3 fL Normal 80-94 [facility] Comment on above: Performed By: #### L 500.4050, L502.0500, L3110.0500, L501.9985, L100.0100, L501.9520, L500.4100 #### [facility] [address] [place], [address] Monocytes/100 WBC (Bld) 11.5 % High 0-10 [facility] Comment on above: Performed By: #### L 500.4050, L502.0500, L3110.0500, L501.9985, L100.0100, L501.9520, L500.4100 #### [facility] [address] [place], [address] Neutrophils/100 WBC (Bld) 42.3 % Low 47-70 [facility] Comment on above: Performed By: #### L 500.4050, L502.0500, L3110.0500, L501.9985, L100.0100, L501.9520, L500.4100 #### [facility] [address] [place], [address] Nucleated RBC (Bld) [#/Vol] 0 10*3/uL Normal 0-5 [facility] Comment on above: Performed By: #### L 500.4050, L502.0500, L3110.0500, L501.9985, L100.0100, L501.9520, L500.4100 #### [facility] [address] [place], [address] Platelet mean volume (Bld) [Entitic vol] 10.1 fL Normal 6.2-12.0 [facility] Comment on above: Performed By: #### L 500.4050, L502.0500, L3110.0500, L501.9985, L100.0100, L501.9520, L500.4100 #### [facility] [address] [place], [address] Platelets (Bld) [#/Vol] 277 10*3/uL Normal 150-450 [facility] Comment on above: Performed By: #### L 500.4050, L502.0500, L3110.0500, L501.9985, L100.0100, L501.9520, L500.4100 #### [facility] [address] [place], [address] RBC (Bld) [#/Vol] 5.31 10*6/uL Normal 4.6-6.2 [facility] Comment on above: Performed By: #### L 500.4050, L502.0500, L3110.0500, L501.9985, L100.0100, L501.9520, L500.4100 #### [facility] [address] [place], [address] RDW SD 45.8 fl High 35.1-43.9 [facility] Comment on above: Performed By: #### L 500.4050, L502.0500, L3110.0500, L501.9985, L100.0100, L501.9520, L500.4100 #### [facility] [address] [place], [address] WBC (Bld) [#/Vol] 9.4 10*3/uL Normal 4.4-11.0 [facility] Comment on above: Performed By: #### L 500.4050, L502.0500, L3110.0500, L501.9985, L100.0100, L501.9520, L500.4100 #### [facility] [address] [place], [address] Comprehensive Metabolic Prof ilon 04-26-2024 Albumin [Mass/Vol] 3.8 g/dL Normal 3.2-5.0 [facility] Comment on above: Performed By: #### L 500.4050, L502.0500, L3110.0500, L501.9985, L100.0100, L501.9520, L500.4100 #### [facility] [address] [place], [address] Albumin/Globulin [Mass ratio] 0.8 {ratio} Low 0.9-2.4 [facility] Comment on above: Performed By: #### L 500.4050, L502.0500, L3110.0500, L501.9985, L100.0100, L501.9520, L500.4100 #### [facility] [address] [place], [address] ALK P 64 U/L Normal 45-117 [facility] Comment on above: Performed By: #### L 500.4050, L502.0500, L3110.0500, L501.9985, L100.0100, L501.9520, L500.4100 #### [facility] [address] [place], [address] ALT [Catalytic activity/Vol] 39 U/L Normal 16-61 [facility] Comment on above: Performed By: #### L 500.4050, L502.0500, L3110.0500, L501.9985, L100.0100, L501.9520, L500.4100 #### [facility] [address] [place], [address] AST [Catalytic activity/Vol] 19 U/L Normal 15-37 [facility] Comment on above: Performed By: #### L 500.4050, L502.0500, L3110.0500, L501.9985, L100.0100, L501.9520, L500.4100 #### [facility] [address] [place], [address] Bilirubin [Mass/Vol] 0.50 mg/dL Normal 0.20-1.00 [facility] Comment on above: Result Comment: For patients on eltrombopag therapy, use of Dimension Trinity TBIL is not recommended. Performed By: #### L 500.4050, L502.0500, L3110.0500, L501.9985, L100.0100, L501.9520, L500.4100 #### [facility] [address] [place], [address] BUN/CRE 16.0 RATIO Normal 10-20 [facility] Comment on above: Performed By: #### L 500.4050, L502.0500, L3110.0500, L501.9985, L100.0100, L501.9520, L500.4100 #### [facility] [address] [place], [address] CA,Total 9.4 mg/dL Normal 8.5-10.1 [facility] Comment on above: Performed By: #### L 500.4050, L502.0500, L3110.0500, L501.9985, L100.0100, L501.9520, L500.4100 #### [facility] [address] [place], [address] Chloride [Moles/Vol] 106 mmol/L Normal 98-107 [facility] Comment on above: Performed By: #### L 500.4050, L502.0500, L3110.0500, L501.9985, L100.0100, L501.9520, L500.4100 #### [facility] [address] [place], [address] CO2 [Moles/Vol] 25.0 mmol/L Normal 21.0-32.0 [facility] Comment on above: Performed By: #### L 500.4050, L502.0500, L3110.0500, L501.9985, L100.0100, L501.9520, L500.4100 #### [facility] [address] [place], [address] Creatinine [Mass/Vol] 1.00 mg/dL Normal 0.70-1.30 [facility] Comment on above: Result Comment: The validity of the calculated GFR GFRAA in patients over 70 years has not been determined. Clinical correlation is essential. Performed By: #### L 500.4050, L502.0500, L3110.0500, L501.9985, L100.0100, L501.9520, L500.4100 #### [facility] [address] [place], [address] EST GFR - AA 97 mL/min Normal >60 [facility] Comment on above: Result Comment: Afri can [place] GFR Calc Performed By: #### L 500.4050, L502.0500, L3110.0500, L501.9985, L100.0100, L501.9520, L500.4100 #### [facility] [address] [place], [address] GAP 5 Normal 5-15 [facility] Comment on above: Performed By: #### L 500.4050, L502.0500, L3110.0500, L501.9985, L100.0100, L501.9520, L500.4100 #### [facility] [address] [place], [address] GFR/1.73 sq M.predicted among non-blacks MDRD (S/P/Bld) [Vol rate/Area] 80 mL/min/{1.73_m2} Normal >60 [facility] Comment on above: Result Comment: Non- GFR Calc Performed By: #### L 500.4050, L502.0500, L3110.0500, L501.9985, L100.0100, L501.9520, L500.4100 #### [facility] [address] [place], [address] Globulin (S) [Mass/Vol] 4.8 g/dL High 2.2-4.2 [facility] Comment on above: Performed By: #### L 500.4050, L502.0500, L3110.0500, L501.9985, L100.0100, L501.9520, L500.4100 #### [facility] [address] [place], [address] Glucose [Mass/Vol] 126 mg/dL High 74-106 [facility] Comment on above: Result Comment: Fast ing Glucose result greater than or equal to 126 mg/dL suggests DIABETES MELLITUS per A.D.A. criteria. Performed By: #### L 500.4050, L502.0500, L3110.0500, L501.9985, L100.0100, L501.9520, L500.4100 #### [facility] [address] [place], [address] Potassium [Moles/Vol] 4.6 mmol/L Normal 3.5-5.1 [facility] Comment on above: Performed By: #### L 500.4050, L502.0500, L3110.0500, L501.9985, L100.0100, L501.9520, L500.4100 #### [facility] [address] [place], [address] Sodium [Moles/Vol] 136 mmol/L Normal 136-145 [facility] Comment on above: Performed By: #### L 500.4050, L502.0500, L3110.0500, L501.9985, L100.0100, L501.9520, L500.4100 #### [facility] [address] [place], [address] T PROT 8.6 g/dL High 6.4-8.2 [facility] Comment on above: Performed By: #### L 500.4050, L502.0500, L3110.0500, L501.9985, L100.0100, L501.9520, L500.4100 #### [facility] [address] [place], [address] Urea nitrogen [Mass/Vol] 16 mg/dL Normal 7-18 [facility] Comment on above: Performed By: #### L 500.4050, L502.0500, L3110.0500, L501.9985, L100.0100, L501.9520, L500.4100 #### [facility] [address] [place], [place], [id number] Hemoglobin A1con 04-26-2024 HbA1c (Bld) [Mass fraction] 6.0 % High 3.8-5.6 [facility] Comment on above: Result Comment: Norm al < 5.7 % Prediabetic 5.7 - 6.4 % Diabetic >or= 6.5 % Please note range changes. Performed By: #### L 500.4050, L502.0500, L3110.0500, L501.9985, L100.0100, L501.9520, L500.4100 #### [facility] [address] [place], [address] Lipid Profileon 04-26-2024 Cholesterol [Mass/Vol] 210 mg/dL High 200 [facility] Comment on above: Result Comment: <200 mg/dL Desirable 200-240 mg/dL Borderline >240 mg/dL High Risk Performed By: #### L 500.4050, L502.0500, L3110.0500, L501.9985, L100.0100, L501.9520, L500.4100 #### [facility] [address] [place], [address] Cholesterol in HDL [Mass/Vol] 36 mg/dL Low [facility] Comment on above: Result Comment: The drugs N-Acetylcysteine and Metamizole may falsely depress this assay. Reference Range HDL <40 mg/dL Low HDL Cholesterol HDL >or= 60 mg/dL High HDL Cholesterol Performed By: #### L 500.4050, L502.0500, L3110.0500, L501.9985, L100.0100, L501.9520, L500.4100 #### [facility] [address] [place], [address] Cholesterol in LDL [Mass/Vol] 142 mg/dL High 0-130 [facility] Comment on above: Performed By: #### L 500.4050, L502.0500, L3110.0500, L501.9985, L100.0100, L501.9520, L500.4100 #### [facility] [address] [place], [address] Cholesterol in VLDL [Mass/Vol] 32 mg/dL Normal 5-40 [facility] Comment on above: Performed By: #### L 500.4050, L502.0500, L3110.0500, L501.9985, L100.0100, L501.9520, L500.4100 #### [facility] [address] [place], [address] Triglyceride [Mass/Vol] 161 mg/dL Normal [facility] Comment on above: Result Comment: The drugs N-Acetylcysteine and Metamizole may falsely depress this assay. Serum Triglycerides Reference Interval Normal <150 mg/dL Borderline high 150 - 199 mg/dL High 200 - 499 mg/dL Very High > or = 500 mg/dL Performed By: #### L 500.4050, L502.0500, L3110.0500, L501.9985, L100.0100, L501.9520, L500.4100 #### [facility] [address] [place], [place], [id number] Microalbumin,Random Urineon 04-26-2024 MICROALBUMIN,UR 10.7 mg/L Normal NO RANGE EST. [facility] Comment on above: Performed By: #### L 500.4050, L502.0500, L3110.0500, L501.9985, L100.0100, L501.9520, L500.4100 #### [facility] [address] [place], [place], [id number] Thyroid Stim Hormone (TSH)on 04-26-2024 TSH 2.280 uIU/mL Normal 0.358-3.740 [facility] Comment on above: Performed By: #### L 500.4050, L502.0500, L3110.0500, L501.9985, L100.0100, L501.9520, L500.4100 #### [facility] [address] [facility] [place], [place], [id number] Basophil percentageOrdered B y: Erich Concepcion on 07-15-2023 Chloride [Moles/Vol] 106 mmol/L 98-107 [facility] Glucose [Mass/Vol] 78 mg/dL 74-106 [facility] Potassium [Moles/Vol] 4.5 mmol/L 3.5-5.1 [facility] Sodium [Moles/Vol] 138 mmol/L 136-145 [facility] - Chemistry and C hemistry - challengeOrdered By: Erich Concepcion on 07-15-2023 CO2 [Moles/Vol] 30.0 mmol/L 21.0-32.0 [facility] Urea nitrogen/Creatinine [Mass ratio] 14.6 mg/mg 10-20 [facility] No Panel InformationOrdered By: Erich Concepcion on 07-15-2023 Estimated GFR (MDRD) Amer 94 mL/min >60 [facility] Comment on above: GFR Calc Estimated GFR (MDRD) Non-Af Amer 78 mL/min >60 [facility] Comment on above: Non- GFR Calc Urine Microalbumin/Creatinine Ratio 7.0 mg/g CRE <30 [facility] Serum or plasma calcium isabel urement (mass/volume)Ordered By: Erich Concepcion on 07-15-2023 Calcium [Mass/Vol] 9.4 mg/dL 8.5-10.1 [facility] Serum or plasma creatinine m easurement (mass/volume)Ordered By: Erich Concepcion on 07-15-2023 Creatinine [Mass/Vol] 1.03 mg/dL 0.70-1.30 [facility] Comment on above: The validity of the calculated GFR & GFRAA in patients over 70 years has not been determined. Clinical correlation is essential. Serum or plasma urea nitroge n measurement (mass/volume)Ordered By: Erich Concepcion on 07-15-2023 Urea nitrogen [Mass/Vol] 15 mg/dL 7-18 [facility] Thin prep Papanicolaou smear with manual screeningOrdered By: Erich Concepcion on 07-15-2023 Thin prep Papanicolaou smear with manual screening 2 5-15 [facility] Thin prep Papanicolaou smear with manual screening 20.8 mg/L NO RANGE EST. [facility] Urine creatinine measurement (mass/volume)Ordered By: Erich Concepcion on 07-15-2023 Creatinine (U) [Mass/Vol] 298.00 mg/dL NO RANGE EST. [facility] Absolute lymphocyte counton 07-21-2021 Lymphocytes Auto (Unsp spec) [#/Vol] 2.04 10*3/uL 0.83-4.51 [facility] Work Phone: Basophil percentageon 2021 Basophils/100 WBC (Bld) 0.3 % 0-1 [facility] Work Phone: Chloride [Moles/Vol] 103 mmol/L 98-107 [facility] Work Phone: Eosinophils/100 WBC (Bld) 1.5 % 0-5 [facility] Work Phone: Glucose [Mass/Vol] 124 mg/dL 74-106 [facility] Work Phone: Comment on above: Fasting Glucose resu lt from 100 to 125 mg/dL suggests IMPAIRED HOMEOSTASIS per A.D.A. criteria. Neutrophils (Bld) [#/Vol] 6.6 10*3/uL 2.0-7.7 [facility] Work Phone: Neutrophils/100 WBC (Bld) 64.3 % 47-70 [facility] Work Phone: Potassium [Moles/Vol] 4.1 mmol/L 3.5-5.1 [facility] Work Phone: Sodium [Moles/Vol] 135 mmol/L 136-145 [facility] Work Phone: WBC (Bld) [#/Vol] 10.2 10*3/uL 4.4-11.0 [facility] Work Phone: Blood erythrocytes count (nu mber/volume)on 07-21-2021 RBC (Bld) [#/Vol] 4.42 10*6/uL 4.6-6.2 [facility] Work Phone: Blood hemoglobin measurement (mass/volume)on 07-21-2021 Hemoglobin (Bld) [Mass/Vol] 12.9 g/dL 13.0-16.5 [facility] Work Phone: Blood lymphocytes/100 leukoc yteson 07-21-2021 Lymphocytes/100 WBC (Bld) 20.0 % 19-41 [facility] Work Phone: Blood monocytes/100 leukocyt eson 07-21-2021 Monocytes/100 WBC (Bld) 13.4 % 0-10 [facility] Work Phone: Blood platelet mean volumeon 07-21-2021 Platelet mean volume (Bld) [Entitic vol] 10.5 fL 6.2-12.0 [facility] Work Phone: Determination of erythrocyte mean corpuscular volume (MCV)on 07-21-2021 MCV (RBC) [Entitic vol] 86.9 fL 80-94 [facility] Work Phone: Hematocrit Auto (Bld) [Volum e fraction]on 07-21-2021 Hematocrit (Bld) [Volume fraction] 38.4 % 40-54 [facility] Work Phone: Laboratory - Chemistry and C hemistry - challengeon 07-21-2021 CO2 [Moles/Vol] 26.0 mmol/L 21.0-32.0 [facility] Work Phone: Urea nitrogen/Creatinine [Mass ratio] 18.1 mg/mg 10-20 [facility] Work Phone: Laboratory - Hematology and Cell countson 07-21-2021 Erythrocyte distribution width (RBC) [Entitic vol] 44.4 fL 35.1-43.9 [facility] Work Phone: Erythrocyte distribution width (RBC) [Ratio] 13.9 % 11.6-14.6 [facility] Work Phone: Immature granulocytes/100 WBC (Bld) 0.500 % 0.0-0.9 [facility] Work Phone: Comment on above: IG% - Immature Granu locytes (promyelocytes, myelocytes and metamyelocytes) > 1% indicates that a LEFT SHIFT is Present. MCH (RBC) [Entitic mass] 29.2 pg 27.0-32.0 [facility] Work Phone: Nucleated RBC/100 WBC (Bld) [Ratio] 0 % 0-5 [facility] Work Phone: MCHC Auto (RBC) [Mass/Vol]on 07-21-2021 MCHC (RBC) [Mass/Vol] 33.6 g/dL 32-36 [facility] Work Phone: No Panel Informationon 07-21 Estimated Creatinine Clearance Calc 105.29 ml/min [facility] Work Phone: Estimated GFR (MDRD) Amer 132 mL/min >60 [facility] Work Phone: Comment on above: GFR Calc Estimated GFR (MDRD) Non-Af Amer 109 mL/min >60 [facility] Work Phone: Comment on above: Non- GFR Calc Platelets bldon 07-21-2021 Platelets (Bld) [#/Vol] 225 10*3/uL 150-450 [facility] Work Phone: Serum or plasma calcium isabel urement (mass/volume)on 07-21-2021 Calcium [Mass/Vol] 8.7 mg/dL 8.5-10.1 [facility] Work Phone: Serum or plasma creatinine m easurement (mass/volume)on 07-21-2021 Creatinine [Mass/Vol] 0.78 mg/dL 0.70-1.30 [facility] Work Phone: Comment on above: The validity of the calculated GFR & GFRAA in patients over 70 years has not been determined. Clinical correlation is essential. Serum or plasma urea nitroge n measurement (mass/volume)on 07-21-2021 Urea nitrogen [Mass/Vol] 14 mg/dL 7-18 [facility] Work Phone: Thin prep Papanicolaou smear with manual screeningon 07-21-2021 Thin prep Papanicolaou smear with manual screening 6 5-15 [facility] Work Phone: Basophil percentageon 2021 Bilirubin [Mass/Vol] 1.00 mg/dL 0.20-1.00 [facility] Work Phone: Comment on above: For patients on eltr ombopag therapy, use of Dimension [facility] TBIL is not recommended. Protein [Mass/Vol] 7.0 g/dL 6.4-8.2 [facility] Work Phone: Laboratory - Chemistry and C hemistry - challengeon 07-20-2021 ALP [Catalytic activity/Vol] 59 U/L 45-117 [facility] Work Phone: ALT [Catalytic activity/Vol] 35 U/L 16-61 [facility] Work Phone: Globulin (S) [Mass/Vol] 3.9 g/dL 2.2-4.2 [facility] Work Phone: Serum or plasma albumin isabel urement (mass/volume)on 07-20-2021 Albumin [Mass/Vol] 3.1 g/dL 3.2-5.0 [facility] Work Phone: Serum or plasma albumin/glob ulin mass ratioon 07-20-2021 Albumin/Globulin [Mass ratio] 0.8 {ratio} 0.9-2.4 [facility] Work Phone: Thin prep Papanicolaou smear with manual screeningon 07-20-2021 Thin prep Papanicolaou smear with manual screening 17 U/L 15-37 [facility] Work Phone: Assessment of wrist artery p atency prior to arterial punctureon 07-19-2021 Arterial patency Wrist artery --pre arterial puncture Positive [facility] Work Phone: Base excesson 07-19-2021 Base excess Calc (BldV) [Moles/Vol] -1 mmol/L -2-2 [facility] Work Phone: Basophil percentageon 2021 Basophil percentage 24.0 mmol/L 22-26 [facility] Work Phone: Basophils/100 WBC (Bld) 82 % 95-99 [facility] Work Phone: Bronchoalveolar lavage cultu re with Gram stainon 07-19-2021 Respiratory Culture Streptococcus agalactiae (B) [facility] Work Phone: Respiratory Culture Mixed Madeleine [facility] Work Phone: CO2 (BldA) [Partial pressure ]on 07-19-2021 CO2 (Bld) [Partial pressure] 39.2 mm[Hg] 35-45 [facility] Work Phone: Gram stain for investigation of transfusion reactionon 07-19-2021 Microscopic observation Gram stain Nom (Unsp spec) [facility] Work Phone: No Panel Informationon 07-19 Troponin I High Sensitivity 3 pg/mL 3.0-78.0 [facility] Work Phone: Comment on above: Please Note: New Aimee t Units and Gender Specific Reference Ranges. For more information see Policy Stat Procedure [facility] High Sensitivity Troponin (TNIH) and attachments. Blood Gas Clinical Comments 14 [facility] Work Phone: Blood Gas Oxygen Percent 100 [facility] Work Phone: Blood Gas Sample Site R Radial [facility] Work Phone: Blood [facility] Work [facility]: Blood Gas Total CO2 25 mmol/L [facility] Work Phone: Oxygen Delivery Device BiPAP [facility] Work Phone: Oxygen (BldA) [Partial press ure]on 07-19-2021 Oxygen (Bld) [Partial pressure] 47 mmHG 75-100 [facility] Work Phone: pH measurementon 07-19-2021 pH (Unsp spec) 7.40 [pH] 7.35-7.45 [facility] Work Phone: Laboratory - Microbiology an d Antimicrobial susceptibilityon 07-18-2021 SARS-CoV-2 (COVID-19) RNA JT+probe Ql (Unsp spec) Not detected Not Detect [facility] Work Phone: Comment on above: Normal Reference Ran ge: Not DetectedMethod:(RT-PCR) real-time reverse transcriptase PCRLuminex SHAINA Instrument*The Food and Drug Administration (FDA) has issued an Emergency Use Authorization (EAU) for the SHAINA SARS-CoV-2 Assay for the rapid detection of the virus that causes COVID-19. This test has been validated, but the FDAs independent review of this validation is pending.*Negative results do not preclude infection and should not be used as the sole basis for treatment or patient management. Optimum specimen types and timing for peak viral levels during infections caused by SARS-CoV-2 have not been determined. Collection of multiple specimens from the same patient may be necessary to detect the virus. The possibility of a false negative result should be considered if the patient has clinical presentation or has had recent exposure. Absolute lymphocyte counton 07-17-2021 Lymphocytes Auto (Unsp spec) [#/Vol] 1.61 10*3/uL 0.83-4.51 [facility] Work Phone: Basophil percentageon 2021 Basophils/100 WBC (Bld) 0.2 % 0-1 [facility] Work Phone: Chloride [Moles/Vol] 108 mmol/L 98-107 [facility] Work Phone: Eosinophils/100 WBC (Bld) 0.3 % 0-5 [facility] Work Phone: Glucose [Mass/Vol] 154 mg/dL 74-106 [facility] Work Phone: Comment on above: Fasting Glucose resu lt greater than or equal to 126 mg/dL suggests DIABETES MELLITUS per A.D.A. criteria. Neutrophils (Bld) [#/Vol] 15.2 10*3/uL 2.0-7.7 [facility] Work Phone: Neutrophils/100 WBC (Bld) 79.2 % 47-70 [facility] Work Phone: Potassium [Moles/Vol] 4.7 mmol/L 3.5-5.1 [facility] Work Phone: Sodium [Moles/Vol] 136 mmol/L 136-145 [facility] Work Phone: WBC (Bld) [#/Vol] 19.2 10*3/uL 4.4-11.0 [facility] Work Phone: Blood erythrocytes count (nu mber/volume)on 07-17-2021 RBC (Bld) [#/Vol] 4.72 10*6/uL 4.6-6.2 [facility] Work Phone: Blood hemoglobin measurement (mass/volume)on 07-17-2021 Hemoglobin (Bld) [Mass/Vol] 13.8 g/dL 13.0-16.5 [facility] Work Phone: Blood lymphocytes/100 leukoc yteson 07-17-2021 Lymphocytes/100 WBC (Bld) 8.4 % 19-41 [facility] Work Phone: Blood manual differential co mment interpretation (narrative result)on 07-17-2021 Manual differential comment Joseluis (Bld) [Interp] See comment [facility] Work Phone: Comment on above: MONOCYTOSIS NOTED Blood monocytes/100 leukocyt eson 07-17-2021 Monocytes/100 WBC (Bld) 10.9 % 0-10 [facility] Work Phone: Blood platelet adequacy dete ction by light microscopyon 07-17-2021 Platelets LM Ql (Bld) ADEQUATE ADEQ [facility] Work Phone: Blood platelet mean volumeon 07-17-2021 Platelet mean volume (Bld) [Entitic vol] 10.5 fL 6.2-12.0 [facility] Work Phone: Determination of erythrocyte mean corpuscular volume (MCV)on 07-17-2021 MCV (RBC) [Entitic vol] 87.5 fL 80-94 [facility] Work Phone: Hematocrit Auto (Bld) [Volum e fraction]on 07-17-2021 Hematocrit (Bld) [Volume fraction] 41.3 % 40-54 [facility] Work Phone: INR in Blood by Coagulation assayon 07-17-2021 INR Coag (Bld) [Relative time] 1.1 {INR} [facility] Work Phone: Laboratory - Chemistry and C hemistry - challengeon 07-17-2021 CO2 [Moles/Vol] 26.0 mmol/L 21.0-32.0 [facility] Work Phone: Urea nitrogen/Creatinine [Mass ratio] 13.7 mg/mg 10-20 [facility] Work Phone: Laboratory - Coagulationon 0 07-17-2021 aPTT Coag (Bld) [Time] 23.9 s 24.1-36.2 [facility] Work Phone: PT Coag (PPP) [Time] 13.5 s 11.7-14.9 [facility] Work Phone: Laboratory - Hematology and Cell countson 07-17-2021 Erythrocyte distribution width (RBC) [Entitic vol] 45.2 fL 35.1-43.9 [facility] Work Phone: Erythrocyte distribution width (RBC) [Ratio] 14.2 % 11.6-14.6 [facility] Work Phone: Immature granulocytes/100 WBC (Bld) 1.000 % 0.0-0.9 [facility] Work Phone: Comment on above: IG% - Immature Granu locytes (promyelocytes, myelocytes and metamyelocytes) > 1% indicates that a LEFT SHIFT is Present. MCH (RBC) [Entitic mass] 29.2 pg 27.0-32.0 [facility] Work Phone: Nucleated RBC/100 WBC (Bld) [Ratio] 0 % 0-5 [facility] Work Phone: MCHC Auto (RBC) [Mass/Vol]on 07-17-2021 MCHC (RBC) [Mass/Vol] 33.4 g/dL 32-36 [facility] Work Phone: No Panel Informationon 07-17 Estimated Creatinine Clearance Calc 80.51 ml/min [facility] Work Phone: Estimated GFR (MDRD) Amer 96 mL/min >60 [facility] Work Phone: Comment on above: GFR Calc Estimated GFR (MDRD) Non-Af Amer 79 mL/min >60 [facility] Work Phone: Comment on above: Non- GFR Calc Platelets bldon 07-17-2021 Platelets (Bld) [#/Vol] 245 10*3/uL 150-450 [facility] Work Phone: RBC morphologyon 07-17-2021 RBC morphology finding Nom (Bld) NORM C+C NORMAL NORM C&C [facility] Work Phone: Review by pathologiston 07-03 Pathologist review Joseluis (Unsp spec) [Interp] August james [facility] Work Phone: Pathologist review Joseluis (Unsp spec) [Interp] Reviewed [facility] Work Phone: Comment on above: Previous reported re sult: August james Edited by: RGOOD on 07/20/21:1243Neutrophilic leukocytosis.Clinical correlation necessary.Rickie Suarez M.D. 07/20/21 AMENDED REPORT 07/20/21 1243 PATH REV previously reported as: August Serum or plasma calcium isabel urement (mass/volume)on 07-17-2021 Calcium [Mass/Vol] 9.1 mg/dL 8.5-10.1 [facility] Work Phone: Serum or plasma creatinine m easurement (mass/volume)on 07-17-2021 Creatinine [Mass/Vol] 1.02 mg/dL 0.70-1.30 [facility] Work Phone: Comment on above: The validity of the calculated GFR & GFRAA in patients over 70 years has not been determined. Clinical correlation is essential. Serum or plasma urea nitroge n measurement (mass/volume)on 07-17-2021 Urea nitrogen [Mass/Vol] 14 mg/dL 10-19 [facility] Work Phone: Thin prep Papanicolaou smear with manual screeningon 07-17-2021 Thin prep Papanicolaou smear with manual screening 2 08-16 [facility] Work Phone: Vital Signs Date Time Vital Sign Value Performing Clinician Facility 07-27-2022 08:22-0400 Diastolic blood pressure 82 mm[Hg] KENNEL TECHNICIAN-C Erich Concepcion KENNEL TECHNICIAN Work Phone: [facility] 07-27-2022 08:22-0400 Systolic blood pressure 138 mm[Hg] KENNEL TECHNICIAN-C Erich Concepcion KENNEL TECHNICIAN Work Phone: [facility] 07-13-2022 08:02-0400 Body height 177.8 cm KENNEL TECHNICIAN-C Erich Concepcion KENNEL TECHNICIAN Work Phone: [facility] 07-13-2022 08:02-0400 Body mass index (BMI) [Ratio] 32.7 kg/m2 [employer] TECHNICIAN-C Erich Concepcion KENNEL TECHNICIAN Work Phone: [facility] 07-13-2022 08:02-0400 Body temperature 98.9 [degF] KENNEL TECHNICIAN-C Erich Concepcion KENNEL TECHNICIAN Work Phone: [facility] 07-13-2022 08:02-0400 Body weight 103.41 kg KENNEL TECHNICIAN-C Erich Concepcion KENNEL TECHNICIAN Work Phone: [facility] 07-13-2022 08:02-0400 Diastolic blood pressure 94 mm[Hg] KENNEL TECHNICIAN-C Erich Concepcion KENNEL TECHNICIAN Work Phone: [facility] 07-13-2022 08:02-0400 Heart rate 78 /min KENNEL TECHNICIAN-C Erich Concepcion KENNEL TECHNICIAN Work Phone: [facility] 07-13-2022 08:02-0400 Respiratory rate 18 /min KENNEL TECHNICIAN-C Erich Concepcion KENNEL TECHNICIAN Work Phone: [facility] 07-13-2022 08:02-0400 SaO2% (BldA) [Mass fraction] 96 % KENNEL TECHNICIAN-C Erich Concepcion KENNEL TECHNICIAN Work Phone: [facility] 07-13-2022 08:02-0400 Systolic blood pressure 158 mm[Hg] KENNEL TECHNICIAN-C Erich Concepcion KENNEL TECHNICIAN Work Phone: [facility] 01-01-2022 12:58-0400 Body height 177.8 cm KENNEL TECHNICIAN-C Erich Concepcion KENNEL TECHNICIAN Work Phone: [facility] Work Phone: 01-01-2022 12:58-0400 Body mass index (BMI) [Ratio] 31.4 kg/m2 KENNEL TECHNICIAN-C Erich Concepcion KENNEL TECHNICIAN Work Phone: [facility] Work Phone: 01-01-2022 12:58-0400 Body temperature 97.2 [degF] KENNEL TECHNICIAN-C Erich Concepcion KENNEL TECHNICIAN Work Phone: [facility] Work Phone: 01-01-2022 12:58-0400 Body weight 99.33 kg KENNEL TECHNICIAN-C Erich Concepcion KENNEL TECHNICIAN Work Phone: [facility] Work Phone: 01-01-2022 12:58-0400 Diastolic blood pressure 98 mm[Hg] KENNEL TECHNICIAN-C Erich Concepcion KENNEL TECHNICIAN Work Phone: [facility] Work Phone: 01-01-2022 12:58-0400 Heart rate 68 /min KENNEL TECHNICIAN-C Erich Concepcion KENNEL TECHNICIAN Work Phone: [facility] Work Phone: 01-01-2022 12:58-0400 Respiratory rate 16 /min KENNEL TECHNICIAN-C Erich Concepcion KENNEL TECHNICIAN Work Phone: [facility] Work Phone: 01-01-2022 12:58-0400 SaO2% (BldA) [Mass fraction] 97 % KENNEL TECHNICIAN-C Erich Concepcion KENNEL TECHNICIAN Work Phone: [facility] Work Phone: 01-01-2022 12:58-0400 Systolic blood pressure 140 mm[Hg] KENNEL TECHNICIAN-C Erich Concepcion KENNEL TECHNICIAN Work Phone: [facility] Work Phone: 07-22-2021 10:54-0400 Heart rate 89 /min KENNEL TECHNICIAN-C Erich Concepcion KENNEL TECHNICIAN Work Phone: [facility] Work Phone: 07-22-2021 10:54-0400 Respiratory rate 20 /min KENNEL TECHNICIAN-C Erich Concepcion KENNEL TECHNICIAN Work Phone: [facility] Work Phone: 07-22-2021 10:54-0400 SaO2% (BldA) [Mass fraction] 96 % KENNEL TECHNICIAN-C Erich Concepcion KENNEL TECHNICIAN Work Phone: [facility] Work Phone: 07-22-2021 09:39-0400 Body temperature 97.6 [degF] KENNEL TECHNICIAN-C Erich Concepcion KENNEL TECHNICIAN Work Phone: [facility] Work Phone: 07-22-2021 09:39-0400 Diastolic blood pressure 83 mm[Hg] KENNEL TECHNICIAN-C Erich Concepcion KENNEL TECHNICIAN Work Phone: [facility] Work Phone: 07-22-2021 09:39-0400 Systolic blood pressure 124 mm[Hg] KENNEL TECHNICIAN-C Erich Concepcion KENNEL TECHNICIAN Work Phone: [facility] Work Phone: 07-21-2021 23:00-0400 Inhaled oxygen concentration 50 % KENNEL TECHNICIAN-C Erich Concepcion KENNEL TECHNICIAN Work Phone: [facility] Work Phone: 07-21-2021 14:48-0400 Body height 177.8 cm KENNEL TECHNICIAN-C Erich Concepcion KENNEL TECHNICIAN Work Phone: [facility] Work Phone: 07-21-2021 14:48-0400 Body weight 99.9 kg KENNEL TECHNICIAN-C Erich Concepcion KENNEL TECHNICIAN Work Phone: [facility] Work Phone: 07-17-2021 20:30-0400 Body mass index (BMI) [Ratio] 31.6 kg/m2 KENNEL TECHNICIAN-C Erich Concepcion KENNEL TECHNICIAN Work Phone: [facility] Work Phone: 07-17-2021 19:13-0400 Body temperature 98.8 [degF] KENNEL TECHNICIAN-C Erich Concepcion KENNEL TECHNICIAN Work Phone: [facility] Work Phone: 07-17-2021 19:13-0400 Diastolic blood pressure 77 mm[Hg] KENNEL TECHNICIAN-C Erich Concepcion KENNEL TECHNICIAN Work Phone: [facility] Work Phone: 07-17-2021 19:13-0400 Heart rate 88 /min KENNEL TECHNICIAN-C Erich Concepcion KENNEL TECHNICIAN Work Phone: [facility] Work Phone: 07-17-2021 19:13-0400 Respiratory rate 18 /min KENNEL TECHNICIAN-C Erich Concepcion KENNEL TECHNICIAN Work Phone: [facility] Work Phone: 07-17-2021 19:13-0400 SaO2% (BldA) [Mass fraction] 99 % KENNEL TECHNICIAN-C Erich Concepcion KENNEL TECHNICIAN Work Phone: [facility] Work Phone: 07-17-2021 19:13-0400 Systolic blood pressure 134 mm[Hg] KENNEL TECHNICIAN-C Erich Concepcion KENNEL TECHNICIAN Work Phone: [facility] Work Phone: 07-17-2021 16:04-0400 Body height 177.8 cm KENNEL TECHNICIAN-C Erich Concepcion KENNEL TECHNICIAN Work Phone: [facility] Work Phone: 07-17-2021 16:04-0400 Body mass index (BMI) [Ratio] 30.8 kg/m2 KENNEL TECHNICIAN-C Erich Concepcion KENNEL TECHNICIAN Work Phone: [facility] Work Phone: 07-17-2021 16:04-0400 Body weight 97.52 kg KENNEL TECHNICIAN-C Erich Concepcion KENNEL TECHNICIAN Work Phone: [facility] Work Phone: 06-30-2021 08:06-0400 Body mass index (BMI) [Ratio] 33.2 kg/m2 KENNEL TECHNICIAN-C Erich Concepcion KENNEL TECHNICIAN Work Phone: [facility] Work Phone: 06-30-2021 08:06-0400 Body temperature 96.9 [degF] KENNEL TECHNICIAN-C Erich Concepcion KENNEL TECHNICIAN Work Phone: [facility] Work Phone: 06-30-2021 08:06-0400 Body weight 102.05 kg KENNEL TECHNICIAN-C Erich Concepcion KENNEL TECHNICIAN Work Phone: [facility] Work Phone: 06-30-2021 08:06-0400 Diastolic blood pressure 84 mm[Hg] KENNEL TECHNICIAN-C Erich Concepcion KENNEL TECHNICIAN Work Phone: [facility] Work Phone: 06-30-2021 08:06-0400 Heart rate 73 /min KENNEL TECHNICIAN-C Erich Concepcion KENNEL TECHNICIAN Work Phone: [facility] Work Phone: 06-30-2021 08:06-0400 Respiratory rate 16 /min KENNEL TECHNICIAN-C Erich Concepcion KENNEL TECHNICIAN Work Phone: [facility] Work Phone: 06-30-2021 08:06-0400 SaO2% (BldA) [Mass fraction] 98 % KENNEL TECHNICIAN-C Erich Concepcion KENNEL TECHNICIAN Work Phone: [facility] Work Phone: 06-30-2021 08:06-0400 Systolic blood pressure 160 mm[Hg] KENNEL TECHNICIAN-C Erich Concepcion KENNEL TECHNICIAN Work Phone: [facility] Work Phone: Encounters Encounter Date Encounter Type Care Provider Facility Start: 12-17-2024 End: 12-17-2024 ambulatory Erich Concepcion KENNEL TECHNICIAN-C Work Phone: -Laboratory Start: 12-17-2024 End: 12-17-2024 Patient encounter procedure Jayde Sarah KENNEL TECHNICIAN-C -Laboratory Work Phone: Start: 12-17-2024 End: 12-17-2024 ambulatory Erich Concepcion VSC Facility:[facility] Start: 04-26-2024 End: 04-26-2024 ambulatory Erich Concepcion VSC Facility:[facility] Start: 07-15-2023 End: 07-15-2023 ambulatory [facility] Work Phone: Start: 07-15-2023 End: 07-15-2023 Patient encounter procedure [facility]-Laboratory, [facility] Start: 08-11-2022 End: 08-11-2022 Patient encounter procedure KENNEL TECHNICIAN-C Erich Perezder KENNEL TECHNICIAN Work Phone: [facility] Internal Medicine Work Phone: Start: 08-09-2022 End: 08-09-2022 Patient encounter procedure KENNEL TECHNICIAN-C Erich Concepcion KENNEL TECHNICIAN Work Phone: [facility] Internal Medicine Work Phone: Start: 07-27-2022 End: 07-27-2022 ambulatory KENNEL TECHNICIAN-C Erich Concepcion KENNEL TECHNICIAN Work Phone: [facility] Work Phone: Start: 07-27-2022 End: 07-27-2022 Discharged Recurring KENNEL TECHNICIAN-C Erich Concepcion KENNEL TECHNICIAN Work Phone: [facility]-Physical Therapy Work Phone: Start: 07-27-2022 End: 07-27-2022 Patient encounter procedure KENNEL TECHNICIAN-C Erich Concepcion KENNEL TECHNICIAN Work Phone: [facility] Internal Medicine Work Phone: Start: 07-13-2022 End: 07-13-2022 Patient encounter procedure KENNEL TECHNICIAN-C Erich Perezder KENNEL TECHNICIAN Work Phone: [facility] Internal Medicine Work Phone: Start: 01-21-2022 End: 01-21-2022 ambulatory KENNEL TECHNICIAN-C Erich Concepcion KENNEL TECHNICIAN Work Phone: [facility] Work Phone: Start: 01-21-2022 End: 01-21-2022 Patient encounter procedure KENNEL TECHNICIAN-C Erich Concepcion KENNEL TECHNICIAN Work Phone: [facility] Start: 01-01-2022 End: 01-01-2022 Patient encounter procedure KENNEL TECHNICIAN-C Erich Concepcion KENNEL TECHNICIAN Work Phone: [facility] Radiology Start: 01-01-2022 End: 01-01-2022 Patient encounter procedure KENNEL TECHNICIAN-C Erich Concepcion KENNEL TECHNICIAN Work Phone: [facility] Internal Medicine Start: 12-09-2021 End: 12-09-2021 Patient encounter procedure KENNEL TECHNICIAN-C Erich Concepcion KENNEL TECHNICIAN Work Phone: [facility] Start: 10-07-2021 End: 10-07-2021 Patient encounter procedure KENNEL TECHNICIAN-C Erich Concepcion KENNEL TECHNICIAN Work Phone: [facility] Start: 07-21-2021 Non-patient / Non-visit KENNEL TECHNICIAN-C M lisandro Concepcion KENNEL TECHNICIAN Work Phone: [facility] Inpatient Physicians Start: 07-21-2021 Non-patient / Non-visit KENNEL TECHNICIAN-C M lisandro Concepcion KENNEL TECHNICIAN Work Phone: [facility] Start: 07-20-2021 Non-patient / Non-visit KENNEL TECHNICIAN-C M lisandro Concepcion KENNEL TECHNICIAN Work Phone: [facility]patient Physicians Start: 07-19-2021 End: 07-22-2021 Evaluation and management of inpatient KENNEL TECHNICIAN-C Erich Concepcion KENNEL TECHNICIAN [facility] Start: 07-19-2021 Non-patient / Non-visit KENNEL TECHNICIAN-C M lisandro Concepcion KENNEL TECHNICIAN Work Phone: [facility] Inpatient Physicians Start: 07-18-2021 Non-patient / Non-visit KENNEL TECHNICIAN-C M lisandro Concepcion KENNEL TECHNICIAN Work Phone: [facility] Start: 07-17-2021 Non-patient / Non-visit KENNEL TECHNICIAN-C M lisandro Concepcion KENNEL TECHNICIAN Work Phone: [facility] Start: 07-17-2021 Evaluation and management of inpatient KENNEL TECHNICIAN-C Erich Concepcion KENNEL TECHNICIAN [facility] Start: 06-30-2021 End: 06-30-2021 Patient encounter procedure KENNEL TECHNICIAN-C Erich Concepcion KENNEL TECHNICIAN Work Phone: [facility] Internal Medicine Start: 10-01-2020 Patient encounter status KENNEL TECHNICIAN-C Erich Concepcion KENNEL TECHNICIAN Work Phone: [facility] Procedures Date Procedure Procedure Detail Performing Clinician Start: 12-17-2024 Measurement of Borre sandra burgdorferi antibody Erich Concepcion KENNEL TECHNICIAN-C Work Phone: Comment on above: Lyme antibodies not detected. Reflex testing is notindicated.No laboratory evidence of infection with B. burgdorferi(Lyme disease). Negative results may occur in patientsrecently infected (less than or equal to 14 days) with B.burgdorferi. If recent infection is suspected, repeattesting on a new sample collected in 7 to 14 days isrecommended.Performed at: [facility] [id number] Director: Hamlet Bowers PhD, Phone: [phone] Start: 01-21-2022 MRI of lumbar spine KENNEL TECHNICIAN- C Erich Concepcion KENNEL TECHNICIAN Work Phone: Start: 01-01-2022 Plain chest X-ray KENNEL TECHNICIAN-C Erich Concepcion KENNEL TECHNICIAN Work Phone: Start: 07-20-2021 X-ray of lumbar spin e, two or three views KENNEL TECHNICIAN-C Erich Concepcion KENNEL TECHNICIAN Work Phone: Start: 07-20-2021 Radiography of thora cic spine KENNEL TECHNICIAN-C Erich Concepcion KENNEL TECHNICIAN Work Phone: Start: 07-19-2021 Investigation of tra nsfusion reaction KENNEL TECHNICIAN-C Erich Concepcion KENNEL TECHNICIAN Work Phone: Start: 07-19-2021 End: 07-19-2021 Legionella pneumophila antigen assay KENNEL TECHNICIAN-C Erich Concepcion KENNEL TECHNICIAN Work Phone: Start: 07-19-2021 Respiratory microbia l culture KENNEL TECHNICIAN-C Erich Concepcion KENNEL TECHNICIAN Work Phone: Start: 07-19-2021 CT of thorax with contrast KENNEL TECHNICIAN-C Erich Concepcion KENNEL TECHNICIAN Work Phone: Start: 07-19-2021 Plain chest X-ray KENNEL TECHNICIAN-C Erich Concepcion KENNEL TECHNICIAN Work Phone: Start: 07-18-2021 X-ray of chest posteroanterior view KENNEL TECHNICIAN-C Erich Concepcion KENNEL TECHNICIAN Work Phone: Start: 07-17-2021 Computed tomography of thoracic spine without contrast KENNEL TECHNICIAN-C Erich Concepcion KENNEL TECHNICIAN Work Phone: Start: 07-17-2021 CT cervical spine wi thout contrast KENNEL TECHNICIAN-C Erich Concepcion KENNEL TECHNICIAN Work Phone: Start: 07-17-2021 CT of chest and abdomen KENNEL TECHNICIAN-C Erich Concepcion KENNEL TECHNICIAN Work Phone: Start: 07-17-2021 CT of head without contrast KENNEL TECHNICIAN-C Erich Concepcion KENNEL TECHNICIAN Work Phone: Start: 07-17-2021 CT of lumbar spine KENNEL TECHNICIAN-C Erich Concepcion KENNEL TECHNICIAN Work Phone: Start: 07-17-2021 End: 07-17-2021 Viral antigen assay KENNEL TECHNICIAN-C Erich Concepcion KENNEL TECHNICIAN Work Phone: Plan of Treatment Date Care Activity Detail Author Hemoglobin A1c/Hemoglobin.total in Blood [facility] Patient referral [facility] Work Phone: [facility] Payers Date Payer Category Payer Self-pay [id number] 2024 Unknown [id number] 2012 [id number] Unknown [id number] Social History Date Type Detail Facility Start: 07-17-2021 End: 08-09-2022 Tobacco smoking status NHIS Unknown if ever smoked [facility] Start: 1960 Sex Assigned At Male [facility] Start: 08-09-2022 Tobacco smoking stat us NHIS Smokes tobacco daily (finding) [facility] Sex Male [facility] Functional Status Date Assessment Result Facility 07-22-2021 Functional status Ambulates;Chair [facility] Work Phone: 07-22-2021 Functional status None [facility] Work Phone: Mental Status Date Assessment Result Facility 07-22-2021 Cognitive function Voice/Name [facility] Work Phone: Evaluation note Note Date & Type Note Facility Evaluation note Diagnosis Onset Date Tobacco abuse acute Hypertension chronic Fall from ladder acute Multiple rib fractures acute Multiple transverse process fractures acute [facility] Work Phone: Evaluation note Note Date & Type Note Facility Evaluation note Diagnosis Onset Date Tobacco abuse acute Hypertension chronic Concussion acute Fall from ladder acute Multiple rib fractures acute Multiple transverse process fractures acute Trauma acute Chronic thoracic back pain c hronic [facility] Work Phone: Evaluation note Note Date & Type Note Facility Evaluation note Diagnosis Onset Date Multilevel thoracic spondylo sis without myelopathy acute Multiple rib fractures acute Multiple transverse process fractures acute HNP (herniated nucleus pulposus), lumbar acute Tobacco abuse acute Chronic thoracic back pain c hronic Dyspnea noneactive [facility] Work Phone: Evaluation note Note Date & Type Note Facility Evaluation note Diagnosis Onset Date Prediabetes acute Tobacco abuse acute Hypertension chronic [facility] Work Phone: Evaluation note Note Date & Type Note Facility Evaluation note No assessment information availa [facility] Work Phone: Reason for referral (narrative) Note Date & Type Note Facility Reason for referral (narrative) No reason for referral information available [facility] Work Phone: Chief Complaint and Reason for Visit Chief Complaint 6 M FU FALL FALL Reason for Visit Tobacco abuse Hypertension Fall from ladder Multiple rib fractures Multiple transverse process fractures Chief Complaint 6 M FU FALL FALL FALL FALL FALL FALL FALL Reason for Visit Tobacco abuse Hypertension Concussion Fall from ladder Multiple rib fractures Multiple transverse process fractures Trauma Chronic thoracic back pain Chief Complaint 1 M FU Thoracic spine 6 M FU XRAY HERNIATED DISC Reason for Visit 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 Multiple rib fractures Multiple transverse process fractures HNP (herniated nucleus pulposus), lumbar Tobacco abuse Chronic thoracic back pain Dyspnea Chief Complaint 1 M FU Bp Check BACK PAIN/RX HERE TB SHOT TB READ Reason for Visit Prediabetes Tobacco abuse Hypertension Family History Relationship Condition Age at Onset Recorded Date/T facundo mother Depression Unknown Malignant neoplasm of colon Unknown grandfather Myocardial infarction Unknown Advance Directives Advance Directive Response Recorded Date/ Time Living Will No July 17, 2021 7:11pm Power of Alum Plant Operator No July 17 7:11pm Summary Purpose Additional Source Comments Goals (unrecognized section and content) Goals may be documented in a n alternate sectionGoals may be documented in an alternate sectionGoals may be documented in an alternate sectionGoals may be documented in an alternate sectionGoals may be documented in an alternate sectionGoals may be documented in an alternate section Care Teams (unrecognized sec tion and content) Team Status: Active Member Role Status Dates Erich Concepcion KENNEL TECHNICIAN, KENNEL TECHNICIAN-C Primary Care Provider Active Team Status: Inactive Member Role Status Dates Erich Concepcion NP, KENNEL TECHNICIAN-C Primary Care Provide r, Attending Provider, Referring Provider Active Team Status: Inactive Member Role Status Dates Erich Concepcion NP, KENNEL TECHNICIAN-C Primary Care Provider Active Dr. Deann Shahid MD Attending Provider, Referring Pr ovider Active Team Status: Active Member Role Status Dates Erich SMITHC, KENNEL TECHNICIAN-C Primary Care Provider Active Team Status: Inactive Member Role Status Dates Erich CORONA, KENNEL TECHNICIAN-C Primary Care Provider, Attending Provider Active Team Status: Active Member Role/Relationship Status Dates Erich CORONA, KENNEL TECHNICIAN-C Primary care physician Active Team Status: Inactive Member Role/Relationship Status Dates Erich CORONA, KENNEL TECHNICIAN-C Primary care physician Active Start: December 17, 2024 End: December 17, 2024 ELENA San Attending physician Active Start: December 17, 2024 End: December 17, 2024 (unrecognized sect ion and content) No Status Records Found INFORMATION SOURCE (unrecogn ized section and content) DATE CREATED AUTHOR 12/26/2024 [facility] FOR RECORDS PERTAINING TO PATIENTS WHO ARE OR HAVE BEEN ENROLLED IN A CHEMICAL DEPENDENCY/SUBSTANCEABUSE PROGRAM, SOME INFORMATION MAY BE OMITTED. This clinical summary was aggregated from multiple sources. Caution should be exercised in using it in the provision of clinical care. This summary normalizes information from multiple sources, and as a consequence, information in this document may materially change the coding, format and clinical context of patient data. In addition, data may be omitted in some cases. CLINICAL DECISIONS SHOULD BE BASED ON THE PRIMARY CLINICAL RECORDS. [facility]. provides no warranty or guarantee of the accuracy or completeness of information in this document.
== END | disposition home or self-care (01) ==
PROVIDERS: PCP Nurse Practitioner Family; Referring Provider Nurse Practitioner Family; Visit Provider Nurse Practitioner Family
DX: K57.92 Diverticulitis of intestine, part unspecified, without perforation or abscess without bleeding (principal)
CPT/HCPCS: 74177; Q9967